=== PATIENT | female | born 1955 | race Caucasian/White ===

== ENCOUNTER → 2017-05-17 13:41 | Outpatient (CLI) | payer BC, SELFPAY ==
[2017-05-22 11:22] LABS: HPV Reflexed? NOT INDICATED
== END ==
PROVIDERS: Visit Provider Obstetrics & Gynecology
DX: Z12.4 Encounter for screening for malignant neoplasm of cervix (principal)
CPT/HCPCS: 88175; G0145

== ENCOUNTER → 2017-06-13 07:51 | Outpatient (CLI) | payer BC, SELFPAY ==
--- NOTE | 2017-06-13 08:11 | US_ITS ---
STUDY: ULTRASOUND BREAST - RIGHT REASON FOR EXAM: Female, 62 years old. Lateral mastectomy and breast implants. TECHNIQUE: Axial and longitudinal images of the RIGHT breast were performed with a high resolution ultrasound transducer. COMPARISON: None. FINDINGS: RIGHT Breast: Sonographic examination of the right breast was obtained. There is evidence of bilateral breast implants. No sonographic abnormality is seen. IMPRESSION: No sonographic abnormality is seen. ASSESSMENT CATEGORY: BIRADS Category 2: Benign. A letter regarding these results will be sent to the patient by the facility within 30 days. Electronically Signed: Dav Kent MD at 9:51 EDT Tel [phone], Service support , STUDY: ULTRASOUND BREAST - LEFT REASON FOR EXAM: Female, 62 years old. Bilateral mastectomy and breast implants. TECHNIQUE: Axial and longitudinal images of the LEFT breast were performed with a high resolution ultrasound transducer. COMPARISON: None. FINDINGS: LEFT Breast: Sonographic examination of the entire left breast was performed. The breast implant is seen. No abnormality is seen. US/Breast Complete Bilateral IMPRESSION: Unremarkable sonographic examination of the left breast. ASSESSMENT CATEGORY: BIRADS Category 2: Benign. A letter regarding these results will be sent to the patient by the facility within 30 days. Electronically Signed: Dav Kent MD at 9:52 EDT Tel [phone], Service support ,
== END ==
PROVIDERS: Family Provider Nurse Practitioner; PCP Nurse Practitioner; Visit Provider Obstetrics & Gynecology
DX: Z12.39 Encounter for other screening for malignant neoplasm of breast (principal); Z90.13 Acquired absence of bilateral breasts and nipples
CPT/HCPCS: 76641

== ENCOUNTER 2018-08-13 19:19 | Inpatient (IN) | payer BC, SELFPAY ==
[2018-08-13] VITALS (7 sets, daily range): BP systolic 149–183; BP diastolic 93–104; PULSE 66–104; RESP 16–20; TEMP 36.5–36.9; O2SAT 92–98; BMI 22.6; BMI 22.9
--- NOTE | 2018-08-13 | IMM_PTH ---
PATIENT: CAPRI HERNANDEZ LOC: MS3 U#:[id number] AGE/SX: 63/F ROOM: [facility]306 RE08/16/[address]: Dr. Vicky Melvin MD : 1955 BED: 1 DIS: 08/17/2018 SPEC #: [id number] RECD: 08/16/18 13:46 STATUS: TERESA REQ #: [id number] KINSEY: 08/13/18 00:[address]: Vicky Melvin DEPT: IMMUNOHISTOCHEMISTRY RECD BY: Khadijah Mccloud ENTERED: 08/16/18 13:48 SP TYPE: IMMUNO OTHR DR: MD Stephanie Swenson, RECOOPERER-C Tissues: A - Cecum, NOS Procedures: MSH2 (add) MLH-1 (add) MSH6 (add) Anti-PMS2 (add) FERREIRA-2 (add) P53 (add) KI-67 (initial) PHYSICIAN & [address] [address] SPECIMEN INFORMATION: Tissue Source: A - Cecal mass biopsy Clinical Info: Cecal mass Specimen Number: [id number] CPT code: 72999, 37858 x6 METHODOLOGY: Deparaffinized sections of prefer/formalin-fixed tissue or PAP/DQ stained slides are incubated with monoclonal/polyclonal antibodies/oligonucleotide probes. Localization is made via biotin free immunoperoxidase method. Appropriate controls are performed and reacted as expected. Results on target cell population are indicated in the following table: RESULTS: ANTIBODY / CLONE RESULT Block A Ki-67 (30-9) positive, high P53 (DO-7) positive, weak FERREIRA-2 (SP21) positive MLH-1 (M1) positive, weak MSH2 (25D12) positive MSH6 (44) positive PMS2 (COP5469) negative (high background staining) These tests were developed and their performance characteristics determined by [facility]. They may not have been cleared or approved by the U.S. Food and Drug Administration. The FDA has determined that such clearance or approval is not necessary. INTERPRETATION: A. Cecal mass, biopsy: Invasive adenocarcinoma. Result of Microsatellite Instability Study: Positive (loss of mismatch protein; microsatellite instability detected). Complete loss of PMS2. Case has been reviewed in consultation with Dr. Ann who concurs with the above diagnosis. IDC:CAR SJ:ashley 08/20/18
--- NOTE | 2018-08-13 19:30 | ED.RN ---
PER REQUEST OF DR ARAGON, CALLED RADIOLOGY TO SEE IF THE CT FROM AN EARLIER VISIS TO THIS HOSPITAL COULD BE READ A PART OF THIS ER VISIT
[2018-08-13 20:01] LABS: Absolute Lymphocyte Count 2.77 X10^3/ul (0.83-4.51); Absolute Neutrophil Count 6.1 X10^3/uL (2.0-7.7); Basophil# 0.03 X10^3/uL; Basophil% 0.3 % (0-1); Eosinophil# 0.24 X10^3/uL; Eosinophils% 2.4 % (0-5); Hematocrit 39.7 % (37-47); Hemoglobin 13.1 g/dl (12.0-15.0); Lymphocyte # 2.77 X10^3/ul (4.0); Mean Corpuscular Hgb 28.9 pg (27.0-32.0); Mean Corpuscular Volume 87.6 fL (81-99); Mean Platelet Vol. 10.3 fl (6.2-12.0); Monocyte# 0.72 X10^3/uL; Monocyte% 7.3 % (0-10); Neutrophil % 61.8 % (47-70); Platelet Count 238 K/mm3 (150-450); RBC Distribution Width CV 13.6 % (11.6-14.6); RBC Distribution Width SD 43.4 fl (35.1-43.9); Red Blood Count 4.53 M/mm3 (4.2-5.4); White Blood Count 9.9 K/mm3 (4.4-11.0)
[2018-08-13 20:03] LABS: POSITIVE COUNT NO; POSITIVE DIFFERENTIAL NO; POSITIVE MORPHOLOGY NO
[2018-08-13 20:04] LABS: Bacteria 0 SEEN /hpf (None Seen); Mucous, Urine 0 SEEN /hpf (<or=2+)
[2018-08-13 20:08] LABS: Color, Urine Yellow (Yellow); Glucose, Dipstick Normal (Normal); Ketone-Dipstick Negative (Negative); Leukocyte Esterase-Dipstick Negative /ul (Negative); Nitrite-Dipstick Negative (Negative); Occult Blood-Urine 25 /ul (Negative); Protein-Dipstick Negative (Negative); Urine Bilirubin Dipstick Negative (Negative); Urine Clarity Clear (Clear); Urine Urobilinogen Normal (Normal); Urine pH 6.5 (5.0 - 8.0)
[2018-08-13 20:13] LABS: Squamous Epithelial Cells - UA 0-5 SEEN /hpf (5-10)
[2018-08-13 20:14] LABS: Red Blood Cells-Urine 0-5 SEEN /hpf (0-5)
[2018-08-13 20:16] LABS: Anion Gap 7 (5-15); BUN 14 mg/dL (7-18); BUN/Creat Ratio 22.7 RATIO (10-20); Calcium,Total 8.7 mg/dL (8.5-10.1); Chloride 104 mmol/L (98-107); Creatinine, Serum 0.62 mg/dL (0.55-1.02); EST Glomerular Filtration Rate 104 mL/min (>60); Est Glom Filt Rate - Afr Amer 126 mL/min (>60); Estimated Creatinine Clearance 81.24 ml/min; Glucose 88 mg/dL (74-106); Potassium 3.7 mmol/L (3.5-5.1); Sodium Level 138 mmol/L (136-145)
[2018-08-13 20:16] LABS: White Blood Cells 0-5 SEEN /hpf (0-5)
--- NOTE | 2018-08-13 20:47 | PCM.HP.STD ---
History of Present Illness Date of Admission: 08/13/18 The patient is a 63 year old F presented to the ER with right lower quadrant pain after having a CT abdomen pelvis done as an outpatient per PCP which was consistent with acute appendicitis with some additional inflammation of the the cecum at the base of the appendix. Patient states the right lower quadrant pain began Monday about 2 AM woke her up from sleep. Patient states that during the day Monday her pain could be a 10/10. She has not really been able to eat. Currently she states her pain is a 0 if she does not move; however certain movements can cause it to be between a 4?8/10. Patient does have nausea and vomiting. Patient's last bowel movement was this morning. Patient's white blood cell count is within normal limits. Patient has never had a colonoscopy. Past Medical History Allergies No Known Allergies Allergy (Verified 08/13/18 19:19) Home Medications: Ambulatory Orders Medication Instructions Recorded Alprazolam [Xanax] 0.25 mg PO BID PRN 08/13/18 Aspirin [Aspirin, Baby] 81 mg PO DAILY@0800 08/13/18 Lorazepam [Ativan] 0.5 mg PO DAILY PRN 08/13/18 Sertraline HCl [Zoloft] 25 mg PO DAILY 08/13/18 Surgical History: - - C-sections, tubal, bilateral mastectomy, right elbow surgery Psychiatric History: No pertinent psych hx DIRECTOR REGULATORY COMPLIANCE History: No pertinent DIRECTOR REGULATORY COMPLIANCE history Lives: Spouse/ Significant Other Smoking Status: Current every day smoker Tobacco Use: Cigarettes - *Family History Maternal History Items: No pertinent history Review of Systems Constitutional: Reports: Anorexia. Denies: Fever Cardiovascular: Denies: Chest Pain Respiratory: Denies: Cough Gastrointestinal: Reports: Abdominal Pain, Nausea, Vomiting. Denies: Constipation VTE Information - Inpt Only VTE Present on Admission: Yes VTE Mechan Device Prophylaxis: SCD's VTE Pharm Prophylaxis ordered?: No Reason prophylaxis not ordered:: Medical Contraindication - Surgery - Physical Exam General: Alert, Oriented x3, Cooperative, No apparent distress HEENT: Atraumatic Lungs: Normal air movement Cardiovascular: Regular rate Abdomen: Soft, Non-Distended, Tender - Right lower quadrant, equivocal rebound, no guarding Extremities: No clubbing, No cyanosis, No edema Neurological: Cranial nerves II-XII grossly intact Psych/Mental Status: Normal Affect Vital Signs Temp Pulse Resp BP Pulse Ox 98 F 77 16 183/104 H 98 08/13/18 19:58 08/13/18 19:58 08/13/18 19:58 08/13/18 19:58 08/13/18 19:58 Oxygen Delivery Method Room Air Weight: 133 lb 9.602 oz Body Mass Index (BMI) 22.9 Laboratory Tests Past 24 Hrs 08/13/18 08/13/18 08/13/18 19:40 19:40 20:00 WBC 9.9 RBC 4.53 Hgb 13.1 Hct 39.7 MCV 87.6 MCH 28.9 MCHC 33.0 RDW 13.6 RDW Differential 43.4 Plt Count 238 MPV 10.3 Immature Gran % (Auto) 0.200 Neut % (Auto) 61.8 Lymph % (Auto) 28.0 [place] % (Auto) 7.3 Eos % (Auto) 2.4 Baso % (Auto) 0.3 Absolute Neuts (auto) 6.1 Absolute Lymphs (auto) 2.77 Total Counted Not Reportable Sodium 138 Potassium 3.7 Chloride 104 Carbon Dioxide 27.0 Anion Gap 7 BUN 14 Creatinine 0.62 Estim Creat Clear Calc 81.24 Est GFR (MDRD) Af Amer 126 Est GFR (MDRD) Non-Af 104 BUN/Creatinine Ratio 22.7 H Glucose 88 Calcium 8.7 Urine Color Yellow Urine Clarity Clear Urine pH 6.5 Ur Specific [place] 1.010 Urine Protein Negative Urine Glucose (UA) Normal Urine Ketones Negative Urine Occult Blood 25 H Urine Nitrite Negative Urine Bilirubin Negative Urine Urobilinogen Normal Ur Leukocyte Esterase Negative Urine RBC 0-5 SEEN Urine WBC 0-5 SEEN Ur Squamous Epith Cells 0-5 SEEN Urine Bacteria 0 SEEN Urine Mucus 0 SEEN Assessment/Plan 63-year-old female with acute appendicitis 1. Discussed procedure laparoscopic appendectomy, possible open, possible bowel resection along with the risk but not limited to bleeding, infection/abscess, injury to another organ (small bowel, colon, etc.), adhesion, hernia at incision sites, and anesthesia. Discussed with patient that CT shows there may be some inflammation at the base of the appendix on the cecum. Discussed with patient may need to take additional cecum to have viable tissue at the staple line. Patient had no further questions this time. Discussed with patient that on follow-up in several weeks after appendectomy, I would recommend patient getting colonoscopy since she is never had one. Vicky Melvin M.D. Pager: [phone] [facility] [address] [place] [address], [address] [place] [id number] Office: [phone]
--- NOTE | 2018-08-13 20:52 | HP.PCM_ITS ---
History of Present Illness Date of Admission: 08/13/18 The patient is a 63 year old F presented to the ER with right lower quadrant pain after having a CT abdomen pelvis done as an outpatient per PCP which was consistent with acute appendicitis with some additional inflammation of the the cecum at the base of the appendix. Patient states the right lower quadrant pain began Monday about 2 AM woke her up from sleep. Patient states that during the day Monday her pain could be a 10/10. She has not really been able to eat. Currently she states her pain is a 0 if she does not move; however certain movements can cause it to be between a 4?8/10. Patient does have nausea and vomiting. Patient's last bowel movement was this morning. Patient's white blood cell count is within normal limits. Patient has never had a colonoscopy. Past Medical History Allergies No Known Allergies Allergy (Verified 08/13/18 19:19) Home Medications: Ambulatory Orders Medication Instructions Recorded Alprazolam [Xanax] 0.25 mg PO BID PRN 08/13/18 Aspirin [Aspirin, Baby] 81 mg PO DAILY@0800 08/13/18 Lorazepam [Ativan] 0.5 mg PO DAILY PRN 08/13/18 Sertraline HCl [Zoloft] 25 mg PO DAILY 08/13/18 Surgical History: - - C-sections, tubal, bilateral mastectomy, right elbow surgery Psychiatric History: No pertinent psych hx GYM ATTENDANT History: No pertinent GYM ATTENDANT history Lives: Spouse/ Significant Other Smoking Status: Current every day smoker Tobacco Use: Cigarettes - *Family History Maternal History Items: No pertinent history Review of Systems Constitutional: Reports: Anorexia. Denies: Fever Cardiovascular: Denies: Chest Pain Respiratory: Denies: Cough Gastrointestinal: Reports: Abdominal Pain, Nausea, Vomiting. Denies: Constipation VTE Information - Inpt Only VTE Present on Admission: Yes VTE Mechan Device Prophylaxis: SCD's VTE Pharm Prophylaxis ordered?: No Reason prophylaxis not ordered:: Medical Contraindication - Surgery - Physical Exam General: Alert, Oriented x3, Cooperative, No apparent distress HEENT: Atraumatic Lungs: Normal air movement Cardiovascular: Regular rate Abdomen: Soft, Non-Distended, Tender - Right lower quadrant, equivocal rebound, no guarding Extremities: No clubbing, No cyanosis, No edema Neurological: Cranial nerves II-XII grossly intact Psych/Mental Status: Normal Affect Vital Signs Temp Pulse Resp BP Pulse Ox 98 F 77 16 183/104 H 98 08/13/18 19:58 08/13/18 19:58 08/13/18 19:58 08/13/18 19:58 08/13/18 19:58 Oxygen Delivery Method Room Air Weight: 133 lb 9.602 oz Body Mass Index (BMI) 22.9 Laboratory Tests Past 24 Hrs 08/13/18 08/13/18 08/13/18 19:40 19:40 20:00 WBC 9.9 RBC 4.53 Hgb 13.1 Hct 39.7 MCV 87.6 MCH 28.9 MCHC 33.0 RDW 13.6 RDW Differential 43.4 Plt Count 238 MPV 10.3 Immature Gran % (Auto) 0.200 Neut % (Auto) 61.8 Lymph % (Auto) 28.0 [place] % (Auto) 7.3 Eos % (Auto) 2.4 Baso % (Auto) 0.3 Absolute Neuts (auto) 6.1 Absolute Lymphs (auto) 2.77 Total Counted Not Reportable Sodium 138 Potassium 3.7 Chloride 104 Carbon Dioxide 27.0 Anion Gap 7 BUN 14 Creatinine 0.62 Estim Creat Clear Calc 81.24 Est GFR (MDRD) Af Amer 126 Est GFR (MDRD) Non-Af 104 BUN/Creatinine Ratio 22.7 H Glucose 88 Calcium 8.7 Urine Color Yellow Urine Clarity Clear Urine pH 6.5 Ur Specific [place] 1.010 Urine Protein Negative Urine Glucose (UA) Normal Urine Ketones Negative Urine Occult Blood 25 H Urine Nitrite Negative Urine Bilirubin Negative Urine Urobilinogen Normal Ur Leukocyte Esterase Negative Urine RBC 0-5 SEEN Urine WBC 0-5 SEEN Ur Squamous Epith Cells 0-5 SEEN Urine Bacteria 0 SEEN Urine Mucus 0 SEEN Assessment/Plan 63-year-old female with acute appendicitis 1. Discussed procedure laparoscopic appendectomy, possible open, possible bowel resection along with the risk but not limited to bleeding, infection/abscess, injury to another organ (small bowel, colon, etc.), adhesion, hernia at incision sites, and anesthesia. Discussed with patient that CT shows there may be some inflammation at the base of the appendix on the cecum. Discussed with patient may need to take additional cecum to have viable tissue at the staple line. Patient had no further questions this time. Discussed with patient that on follow-up in several weeks after appendectomy, I would recommend patient getting colonoscopy since she is never had one. Vicky Melvin M.D. Pager: [phone] [facility] [address] [place] [address], [address] [place] [id number] Office: [phone]
--- NOTE | 2018-08-13 20:59 | ED.VIS.GI ---
History of Present Illness Chief Complaint: Abd Pain Narrative: Patient presenting for evaluation secondary to abdominal pain and a potential positive CT scan. Patient reports that since Monday she has had right lower quadrant abdominal pain. This is a continuous sharp pain that does not radiate. Is been associated with some anorexia, but no significant vomiting or diarrhea. Patient denies any presence of fevers. She is never had any prior similar episodes in the past. Pain is worse with riding in the car or palpation. Patient's are primary care today, they were CT scan, and CT recommended that she come to the emergency department. Past Medical History - Allergies and Home Meds Allergies/Adverse Reactions: Allergies No Known Allergies Allergy (Verified 08/13/18 19:19) Primary Care Physician: Stephanie Liu NP-C [Primary Care Provider] - Surgical History: - - C-sections, tubal, bilateral mastectomy, right elbow surgery Lives: Spouse/ Significant Other Smoking Status: Current every day smoker - Family History Maternal Family History: Reports: No pertinent history Review of Systems All systems negative except as indicated General: Reports: Malaise Gastrointestinal: Reports: Abdominal pain, Nausea. Denies: Vomiting Physical Exam Vital Signs/Narrative: Vital Signs Temp Pulse Resp BP Pulse Ox 08/13/18 19:58 98 F 77 16 183/104 H 98 08/13/18 19:19 98.4 F 75 17 165/104 H 97 Inital Vital Signs reviewed: Yes General: Well nourished, Well developed, No Acute Distress Head: Normocephalic, Atraumatic ENT: Moist mucous membranes, No rhinorrhea Neck: Supple, Nontender Cardiovascular: Regular rate, Regular rhythm, No murmurs Respiratory: No distress, CTA bilaterally, Chest nontender Abdomen: Tender - Right lower quadrant over McBurney's point, Guarding Back: Nontender, Normal Inspection Extremities: Nontender, No edema Skin: Normal color, No rash Neurological: Alert, Oriented x3, Cranial nerves II-XII grossly intact, Normal Strength, Normal Sensation Psychological: Normal affect, Normal Mood Diagnostic/Tx/Re-eval - Medical Decision Making Patient presented secondary to right lower quadrant pain. Her CT scan that was performed as an outpatient showed acute appendicitis. IV was established patient was made n.p.o. and I contacted Dr. Melvin general surgery. Patient will be taken to the operating room for definitive management. Disposition: Admit to Med Surg ED Disposition - Plan for ED Patient: Disposition: [facility] Care [facility] Diagnosis: Acute appendicitis Prescriptions: Hydrocodone Bitart/Apap 5-325 [[place] 5MG-325MG] 1 - 2 tablet PO Q6H PRN PRN 4 Days #20 tablet PRN Reason: Pain Referrals: Stephanie Liu, EVENT CREW TECHNICIAN-C [Primary Care Provider] -
--- NOTE | 2018-08-13 21:00 | COLBX_PTH ---
PATIENT: CAPRI HERNANDEZ LOC: MS3 U#:[id number] AGE/SX: 63/F ROOM: [facility] RE08/16/[address]: Dr. Vicky Melvin MD : 1955 BED: 1 DIS: 08/17/2018 SPEC #: [id number] RECD: 08/15/18 12:29 STATUS: TERESA PHILLIP #: [id number] KINSEY: 08/13/18 21:[address]: Vicky Melvin DEPT: SURGICAL PATHOLOGY RECD BY: Sybil Martinez ENTERED: 08/15/18 13:27 SP TYPE: COLON BX OTHR DR: MD Stephanie Swenson, CERTIFIED ALCOHOL COUNSELOR-C Tissues: A - Cecum, NOS B - Rectum, NOS Procedures: Surgery Specimen Level IV HEADER OPERATION: Diagnostic laparoscopy PRE-OP DIAGNOSIS: Appendicitis, cecal mass TISSUE SUBMITTED: A - Cecal mass biopsy, B - Biopsy rectal polyp MICROSCOPIC DIAGNOSIS A. 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 See comment. B. Rectal polyp, biopsy: Fragments of colonic mucosa, no pathologic diagnosis. Fragments of fecal material. SJ:ashley 08/16/18 COMMENT A. The results of mismatch repair of protein by immunohistochemistry ([id number]) will be reported separately. This case has been reviewed in consultation with Dr. Ann who concurs with the above diagnosis. MICROSCOPIC DESCRIPTION Slides are reviewed. GROSS DESCRIPTION A - Received in fixative is one container labeled with the patient's name and designated cecal mass biopsy. The specimen consists of multiple irregular fragments of light ly soft tissue that in aggregate measure 1.5 x 0.5 x 0.1 cm. The specimen is totally submitted in one cassette. B - Received in fixative is one container labeled with the patient's name and designated biopsy of rectal polyp. The specimen consists of multiple irregular fragments of light ly soft tissue that in aggregate measure 0.7 x 0.2 x 0.1 cm. The specimen is totally submitted in one cassette. / EDUARDO:ashley 08/15/18 TC:0 CPT: 48312 x2
--- NOTE | 2018-08-13 21:03 | ED.DCSUM_ITS ---
History of Present Illness Chief Complaint: Abd Pain Narrative: Patient presenting for evaluation secondary to abdominal pain and a potential positive CT scan. Patient reports that since Monday she has had right lower quadrant abdominal pain. This is a continuous sharp pain that does not radiate. Is been associated with some anorexia, but no significant vomiting or diarrhea. Patient denies any presence of fevers. She is never had any prior similar episodes in the past. Pain is worse with riding in the car or palpation. Patient's are primary care today, they were CT scan, and CT recommended that she come to the emergency department. Past Medical History - Allergies and Home Meds Allergies/Adverse Reactions: Allergies No Known Allergies Allergy (Verified 08/13/18 19:19) Primary Care Physician: Stephanie Liu NP-C [Primary Care Provider] - Surgical History: - - C-sections, tubal, bilateral mastectomy, right elbow surgery Lives: Spouse/ Significant Other Smoking Status: Current every day smoker - Family History Maternal Family History: Reports: No pertinent history Review of Systems All systems negative except as indicated General: Reports: Malaise Gastrointestinal: Reports: Abdominal pain, Nausea. Denies: Vomiting Physical Exam Vital Signs/Narrative: Vital Signs Temp Pulse Resp BP Pulse Ox 08/13/18 19:58 98 F 77 16 183/104 H 98 08/13/18 19:19 98.4 F 75 17 165/104 H 97 Inital Vital Signs reviewed: Yes General: Well nourished, Well developed, No Acute Distress Head: Normocephalic, Atraumatic ENT: Moist mucous membranes, No rhinorrhea Neck: Supple, Nontender Cardiovascular: Regular rate, Regular rhythm, No murmurs Respiratory: No distress, CTA bilaterally, Chest nontender Abdomen: Tender - Right lower quadrant over McBurney's point, Guarding Back: Nontender, Normal Inspection Extremities: Nontender, No edema Skin: Normal color, No rash Neurological: Alert, Oriented x3, Cranial nerves II-XII grossly intact, Normal Strength, Normal Sensation Psychological: Normal affect, Normal Mood Diagnostic/Tx/Re-eval - Medical Decision Making Patient presented secondary to right lower quadrant pain. Her CT scan that was performed as an outpatient showed acute appendicitis. IV was established patient was made n.p.o. and I contacted Dr. Melvin general surgery. Patient will be taken to the operating room for definitive management. Disposition: Admit to Med Surg ED Disposition - Plan for ED Patient: Disposition: Acute Care Hospital [facility] Diagnosis: Acute appendicitis Prescriptions: Hydrocodone Bitart/Apap 5-325 [[place] 5MG-325MG] 1 - 2 tablet PO Q6H PRN PRN 4 Days #20 tablet PRN Reason: Pain Referrals: Stephanie Liu, MIX CHEMIST-C [Primary Care Provider] -
--- NOTE | 2018-08-13 21:14 | ED.RN ---
gave report over phone to PLATE EMBOSSER
[2018-08-13] MEDS: Bupiv/Epi 0.5% Mpf 30 ML Vial (22:10)
--- NOTE | 2018-08-13 22:15 | PCM.OPRPT ---
Report of Operation Date of Procedure: 08/13/18 Pre-Operative Diagnosis: Acute appendicitis, inflammation at the base of the appendix Post-Operative Diagnosis: Cecal inflammation/mass Surgery/Procedure Performed:: Diagnostic laparoscopy Type of Anesthesia:: General/Supplemental Anesthesiologist: Andriy Ruiz Special Medications: Zosyn 3.375 g IV x1 Specimen's removed: None Estimated Blood Loss (mL): < 10 cc Fluids Replaced: 500 cc Description of Procedure: Indications: 63-year-old female presented to the ER with new right lower quadrant pain since Monday a.m. On workup she was found to have acute appendicitis with some inflammation at the base of the appendix on the cecum on CT and normal white blood cell count. Patient was started on antibiotics in the ER for acute appendicitis-Zosyn 3.375 g IV x1 Description of the procedure: The patient was placed on operating table in supine position. General anesthesia was induced. A timeout was completed verifying correct patient, procedure, position and special equipment prior to beginning procedure. A Elliott catheter was placed. Abdomen was prepped and draped in usual sterile fashion. Incision was made in the natural skin line above the umbilicus with a 15 blade scalpel. The fascia was elevated and incised. Entry into the peritoneum was confirmed visually and no bowel was noted in the vicinity of the incision. The Alvarez trocar was placed under direct vision. Abdomen insufflated with a pressure of 12-15 mmHg. Patient tolerated insertion well. The scope was inserted and the abdomen inspected. No injuries from initial trocar placement were noted. Minimal amount of fluid was seen in the right lower quadrant. An direct visualization 2 -5 mm trocars were placed one above the symphysis pubis and below the hairline and one in the left lower quadrant lateral to the rectus muscle. Care is taken to avoid injury to the bladder and inferior epigastric vessels. The table was placed in Trendelenburg position with the right side elevated. The base of the cecum appeared inflamed and there was about a 2 cm hard mass. The appendix appeared normal however the inflammation was at the base of the appendix unable to use a stapler to divide the appendix. Did discuss the case via phone with Dr. Farooq, who also agreed to abort the appendectomy and plan for additional work-up of cecal mass. Secondary trochars were removed under direct visualization. No bleeding was noted trocar sites. The laparoscope withdrawn and the umbilical trocar removed. The abdomen was allowed to collapse. Local anesthesia of 13 mL of 0.5% Marcaine was used at the incision sites. The umbilical trocar site was closed with the [id number] 0 Vicryl suture. The skin was closed up to clear sutures of 4-0 Monocryl and Steri-Strips. The patient was extubated. The patient tolerated the procedure well and was taken to the postanesthesia care unit in satisfactory condition. - Complications none
[2018-08-13] MEDS: Ketorolac 15 MG/ML Vial IV (22:44)
--- NOTE | 2018-08-13 22:49 | PCM.PN.BLA ---
Progress Note Pt appendix appeared normal with inflammation/mass at cecum near base of the appendix. Pt has never had a colonoscopy and is not obstructed. Appendix was not removed- only diagnostic laparoscopy complete. Will plan for additional w/u including colonoscopy will discuss further with patient and her family in AM. Have discussed finding of surgery and needing further work up.
[2018-08-13] MEDS: Lactated Ringers 1,000 ML 125 ML IV (23:08)
[2018-08-14] MEDS: ALPRAZolam 0.25 MG Tablet PO (00:17)
[2018-08-14 01:25] VITALS: BP 125/82; PULSE 75; RESP 16; TEMP 36.8; O2SAT 97; BMI 22.6
[2018-08-14 03:39] VITALS: BP 124/82; PULSE 76; RESP 16; TEMP 36.6; O2SAT 97; BMI 22.6
[2018-08-14] MEDS: Lactated Ringers 1,000 ML 125 ML IV (05:41)
[2018-08-14 05:43] LABS: Absolute Lymphocyte Count 1.02 X10^3/ul (0.83-4.51); Absolute Neutrophil Count 6.9 X10^3/uL (2.0-7.7); Basophil# 0.02 X10^3/uL; Basophil% 0.2 % (0-1); Eosinophil# 0.01 X10^3/uL; Eosinophils% 0.1 % (0-5); Hematocrit 38.9 % (37-47); Hemoglobin 12.8 g/dl (12.0-15.0); Lymphocyte # 1.02 X10^3/ul (4.0); Lymphocyte % 12.7 % (19-41); Mean Corp Hgb Conc 32.9 g/gl (32-36); Mean Corpuscular Hgb 28.8 pg (27.0-32.0); Mean Corpuscular Volume 87.4 fL (81-99); Mean Platelet Vol. 10.6 fl (6.2-12.0); Monocyte# 0.07 X10^3/uL; Monocyte% 0.9 % (0-10); Neutrophil # 6.88 X10^3/uL (2.7-7.7); Platelet Count 228 K/mm3 (150-450); RBC Distribution Width CV 13.5 % (11.6-14.6); RBC Distribution Width SD 42.4 fl (35.1-43.9); Red Blood Count 4.45 M/mm3 (4.2-5.4)
[2018-08-14 05:44] LABS: POSITIVE COUNT NO; POSITIVE DIFFERENTIAL NO; POSITIVE MORPHOLOGY NO
--- NOTE | 2018-08-14 07:05 | PN.SURG_ITS ---
Patient Problems: Active and Suspected Problems Acute appendicitis (Acute) Subjective: Patient states her abdomen is less sore than yesterday at the right lower quadrant. Patient tolerated clears. We will plan for a bowel prep today for colonoscopy tomorrow. Patient is agreeable to plan. Did asked patient about her alcohol intake she states that she drinks maybe a 6 to 12 pack a week, 2-4 mixed drinks daily mostly on the weekends, wine nightly. Patient states she is never had any issues with withdrawal and does not feel need to have a consult to the hospitalist. - Physical Exam General: Alert, Oriented x3, Cooperative, No apparent distress HEENT: Atraumatic Lungs: Normal air movement Cardiovascular: Regular rate Abdomen: Soft, Distended - Mild, Tender - Near incisions, no right lower quadrant tenderness on exam, no peritoneal signs Extremities: No clubbing, No cyanosis, No edema Neurological: Cranial nerves II-XII grossly intact Psych/Mental Status: Normal Affect Vital Signs Temp Pulse Resp BP Pulse Ox 97.9 F 76 16 124/82 H 97 08/14/18 03:39 08/14/18 03:39 08/14/18 03:39 08/14/18 03:39 08/14/18 03:39 Oxygen Delivery Method Room Air Weight: 131 lb 13.383 oz Body Mass Index (BMI) 22.6 Intake and Output for Last 24 Hours 08/12/18 08/13/18 08/14/18 23:59 23:59 23:59 Intake Total 1000 / 1000 1290 / 1290 Output Total 220 / 220 Balance 780 / 780 1290 / 1290 Laboratory Tests Past 24 Hrs 08/13/18 08/13/18 08/13/18 19:40 19:40 20:00 WBC 9.9 RBC 4.53 Hgb 13.1 Hct 39.7 MCV 87.6 MCH 28.9 MCHC 33.0 RDW 13.6 RDW Differential 43.4 Plt Count 238 MPV 10.3 Immature Gran % (Auto) 0.200 Neut % (Auto) 61.8 Lymph % (Auto) 28.0 [place] % (Auto) 7.3 Eos % (Auto) 2.4 Baso % (Auto) 0.3 Absolute Neuts (auto) 6.1 Absolute Lymphs (auto) 2.77 Total Counted Not Reportable Sodium 138 Potassium 3.7 Chloride 104 Carbon Dioxide 27.0 Anion Gap 7 BUN 14 Creatinine 0.62 Estim Creat Clear Calc 81.24 Est GFR (MDRD) Af Amer 126 Est GFR (MDRD) Non-Af 104 BUN/Creatinine Ratio 22.7 H Glucose 88 Calcium 8.7 Urine Color Yellow Urine Clarity Clear Urine pH 6.5 Ur Specific [place] 1.010 Urine Protein Negative Urine Glucose (UA) Normal Urine Ketones Negative Urine Occult Blood 25 H Urine Nitrite Negative Urine Bilirubin Negative Urine Urobilinogen Normal Ur Leukocyte Esterase Negative Urine RBC 0-5 SEEN Urine WBC 0-5 SEEN Ur Squamous Epith Cells 0-5 SEEN Urine Bacteria 0 SEEN Urine Mucus 0 SEEN 08/14/18 05:14 WBC 8.0 RBC 4.45 Hgb 12.8 Hct 38.9 MCV 87.4 MCH 28.8 MCHC 32.9 RDW 13.5 RDW Differential 42.4 Plt Count 228 MPV 10.6 Immature Gran % (Auto) 0.100 Neut % (Auto) 86.0 H Lymph % (Auto) 12.7 L [place] % (Auto) 0.9 Eos % (Auto) 0.1 Baso % (Auto) 0.2 Absolute Neuts (auto) 6.9 Absolute Lymphs (auto) 1.02 Total Counted Not Reportable Sodium Potassium Chloride Carbon Dioxide Anion Gap BUN Creatinine Estim Creat Clear Calc Est GFR (MDRD) Af Amer Est GFR (MDRD) Non-Af BUN/Creatinine Ratio Glucose Calcium Urine Color Urine Clarity Urine pH Ur Specific [place] Urine Protein Urine Glucose (UA) Urine Ketones Urine Occult Blood Urine Nitrite Urine Bilirubin Urine Urobilinogen Ur Leukocyte Esterase Urine RBC Urine WBC Ur Squamous Epith Cells Urine Bacteria Urine Mucus Medical Necessity - Tobacco Use Smoking Status: Current some day smoker Tobacco Use: Cigarettes Assessment/Plan All Active Problems Acute appendicitis (Acute) 63-year-old female with cecal inflammation/mass 1. I have discussed the above with the patient. I have offered the patient colonoscopy for evaluation. I have explained the risks/benefits of the procedure and described the procedure. I have discussed the risks with the patient, including but not limited to: infection, bleeding, perforation of the GI tract requiring emergency surgery, inability to complete the procedure, injury to any internal organs, complications of anesthesia, etc. - the patient understands and agrees to proceed. I have answered all the patient's questions to the patient's satisfaction and the patient has no further questions. The patient has been given instructions for the colon cleansing preparation. We will do Dulcolax MiraLAX split prep starting at 10 AM today. Patient no further questions this time. Discuss with patient that if she is unable to tolerate prep or her pain gets worse as due to the location of the inflammation/mass she could possibly get acute appendicitis we will plan to go to the OR for a right hemicolectomy at that time. She is able to tolerate the prep we will plan to do the colonoscopy and depending on findings could do definitive surgery on the following day if necessary. 2. Alcohol intake. Discussed with patient that due to her daily alcohol intake she may benefit from a hospitalist consult initially did not place this morning; however due to patient being here for at least 3 to 5 day did think a consult could be beneficial. However I did also received call at midnight last night from the nurse stating that the daughter had some concerns about her drinking as she may have told the nurse that she had some issues with withdrawals previously. Addendum 13:30: Dr. Zarate went to see the patient. Dr. Zarate called me and told me the patient states she did not need to have a hospitalist consult- she will s/o. Vicky Melvin M.D. Pager: [phone] [facility] [address] [place] [address], [address] [place] [id number] Office: [phone]
[2018-08-14 08:37] VITALS: BP 137/71; PULSE 77; RESP 18; TEMP 36.4; O2SAT 96
[2018-08-14] MEDS: Sertraline 50 MG Tablet 25 MG PO (09:59)
[2018-08-14] MEDS: Bisacodyl 5 MG Tablet 20 MG PO (09:59)
[2018-08-14] MEDS: Ensure Clear 120 ML Liquid PO (09:59)
[2018-08-14] MEDS: Ondansetron 4 MG/2 ML Vial IV (11:38)
[2018-08-14] MEDS: Polyethylene Glycol 3350 17 GM PACKET 238 GM PO (12:13)
--- NOTE | 2018-08-14 12:50 | PCM.PN.HOSP ---
Patient Problems: Active and Suspected Problems Acute appendicitis (Acute) Subjective: Patient is a 63-year-old female who was admitted through the ED on 08/13/2018 with a complaint of right lower quadrant pain. CT of the abdomen and pelvis done on an outpatient basis per her PCP was consistent with acute appendicitis with some additional inflammation of the cecum at the base of the appendix. Abdominal pain had started about 2 days prior to admission. She was admitted by general surgery for appendicitis. She was taken for appendicectomy but it was noticed that the base of the cecum was inflamed and there appeared to be a 2 cm hard mass with appendix appearing normal. Decision was made to abort the appendectomy and plan for additional work-up of the cecal mass. Hospitalist service was consulted today as he was brought to surgeon's attention that patient had a history of alcohol dependence and had gone into withdrawal in 2007 when she had surgery for bilateral mastectomy. Hospitalist service needed to help with medical management of possible alcohol withdrawal. Patient seen and examined. She stated that she drinks about 4 mixed drinks some days of the week. When pressed to state how many days of the week she drank, she stated mostly on weekends but during the week she will sometimes have an occasional drink. Patient denied having any problems with alcohol and says she is never been into detox. Patient seen very defensive about her drinking during review and stated she felt insulted that hospitalist service was consulted on account of her alcohol intake as she did not consider herself as having a problem with alcohol. Vitals/I&O's: Vital Signs Temp Pulse Resp BP Pulse Ox 97.5 F L 77 18 137/71 H 96 08/14/18 08:37 08/14/18 08:37 08/14/18 08:37 08/14/18 08:37 08/14/18 08:37 Oxygen Delivery Method Room Air Weight: 131 lb 13.383 oz Body Mass Index (BMI) 22.6 Intake and Output for Last 24 Hours 08/12/18 08/13/18 08/14/18 23:59 23:59 23:59 Intake Total 1000 / 1000 1290 / 1290 Output Total 220 / 220 Balance 780 / 780 1290 / 1290 General: Alert, Oriented x3, Cooperative, No apparent distress HEENT: Atraumatic, PERRLA, EOMI, Normocephalic Oral: Moist Mucosa Neck: Supple, No JVD, Negative Carotid Bruits Lungs: Clear to auscultation, Normal air movement, No rhonchi, No wheeze, No rales Cardiovascular: Regular rate, Regular Rhythm, Normal S1, Normal S2, No murmurs Abdomen: Bowel Sounds Present, Soft, Non Tender, Non-Distended, No Hepato-splenomegaly Extremities: No clubbing, No cyanosis, No edema, Capillary Refill Less than 3 Seconds Skin: No rashes, No breakdown Musculoskeletal: No Tenderness to Palpation of Joints or Extremities Lymphatic: No Cervical, Supraclavicular, or Inguinal Adenopathy Neurological: Cranial nerves II-XII grossly intact, Neuro grossly intact, Motor Exam 5/5 strength throughout Psych/Mental Status: Normal Affect, Appropriate, Alert and oriented to time, place, person, mood and affect Laboratory Results 08/13/18 19:40: WBC 9.9, RBC 4.53, Hgb 13.1, Hct 39.7, MCV 87.6, MCH 28.9, MCHC 33.0, RDW 13.6, RDW Differential 43.4, Plt Count 238, MPV 10.3, Immature Gran % (Auto) 0.200, Neut % (Auto) 61.8, Lymph % (Auto) 28.0, [place] % (Auto) 7.3, Eos % (Auto) 2.4, Baso % (Auto) 0.3, Absolute Neuts (auto) 6.1, Absolute Lymphs (auto) 2.77, Total Counted Not Reportable 08/13/18 19:40: Sodium 138, Potassium 3.7, Chloride 104, Carbon Dioxide 27.0, Anion Gap 7, BUN 14, Creatinine 0.62, Estim Creat Clear Calc 81.24, Est GFR (MDRD) Af Amer 126, Est GFR (MDRD) Non-Af 104, BUN/Creatinine Ratio 22.7 H, Glucose 88, Calcium 8.7 08/13/18 20:00: Urine Color Yellow, Urine Clarity Clear, Urine pH 6.5, Ur Specific [place] 1.010, Urine Protein Negative, Urine Glucose (UA) Normal, Urine Ketones Negative, Urine Occult Blood 25 H, Urine Nitrite Negative, Urine Bilirubin Negative, Urine Urobilinogen Normal, Ur Leukocyte Esterase Negative, Urine RBC 0-5 SEEN, Urine WBC 0-5 SEEN, Ur Squamous Epith Cells 0-5 SEEN, Urine Bacteria 0 SEEN, Urine Mucus 0 SEEN 08/14/18 05:14: WBC 8.0, RBC 4.45, Hgb 12.8, Hct 38.9, MCV 87.4, MCH 28.8, MCHC 32.9, RDW 13.5, RDW Differential 42.4, Plt Count 228, MPV 10.6, Immature Gran % (Auto) 0.100, Neut % (Auto) 86.0 H, Lymph % (Auto) 12.7 L, [place] % (Auto) 0.9, Eos % (Auto) 0.1, Baso % (Auto) 0.2, Absolute Neuts (auto) 6.9, Absolute Lymphs (auto) 1.02, Total Counted Not Reportable Current Medications Morphine Sulfate () 2 mg IV Q4H PRN PRN PRN Reason: SEVERE PAIN (-12/20) Nutritional Formula (Lactose Free) (Ensure Clear) 120 ml PO 4X/DAY [facility] Last Admin: 08/14/18 09:59 Dose: 120 ml Ondansetron HCl (Zofran) 4 mg IV Q6H PRN PRN PRN Reason: NAUSEA Last Admin: 08/14/18 11:38 Dose: 4 mg Polyethylene Glycol (Miralax) 0 gm PO X1 ONE Stop: 08/15/18 06:01 Sertraline HCl (Zoloft) 25 mg PO DAILY [facility] Last Admin: 08/14/18 09:59 Dose: 25 mg Medical Necessity - Tobacco Use Smoking Status: Current some day smoker Tobacco Use: Cigarettes Assessment/Plan All Active Problems Acute appendicitis (Acute) 1. Alcohol dependence patient drinks ~ 4 mixed drinks on weekends, and also says she occasionally has a drink during the week patient very defensive about her drinking, and was upset hospitalist service was consulted for the possibility of withdrawal from alchohol her last drink was ~ 2 days ago, on Monday. check magnesium potassium levels put on alcohol withdrawal protocol with ativan P.o. thiamine, folic acid and Multivite. 2. Cecal mass: Patient admitted with abdominal pain and CAT scan picked up possible appendicitis. However in laparoscopy she was noted to have 2 cm cecal mass. She therefore did not have appendectomy. Further work-up as per general surgery. 3. History of status post bilateral mastectomy: Stable 4. Anxiety: On Xanax twice daily. DVT prophylaxis: As per general surgery Hospitalist service will sign off now as patient does not want to be seen by hospitalist service anymore because she does not think the reason for the consult is warranted as she does not believe she has a problem with alcohol. Thank you for the courtesy of the consult. Please do not hesitate to contact hospitalist if the need arises. Code Visit Inpatient E&M: 96677 Subs Hosp L2
--- NOTE | 2018-08-14 12:53 | PN_ITS ---
Patient Problems: Active and Suspected Problems Acute appendicitis (Acute) Subjective: Patient is a 63-year-old female who was admitted through the ED on 08/13/2018 with a complaint of right lower quadrant pain. CT of the abdomen and pelvis done on an outpatient basis per her PCP was consistent with acute appendicitis with some additional inflammation of the cecum at the base of the appendix. Abdominal pain had started about 2 days prior to admission. She was admitted by general surgery for appendicitis. She was taken for appendicectomy but it was noticed that the base of the cecum was inflamed and there appeared to be a 2 cm hard mass with appendix appearing normal. Decision was made to abort the appendectomy and plan for additional work-up of the cecal mass. Hospitalist service was consulted today as he was brought to surgeon's attention that patient had a history of alcohol dependence and had gone into withdrawal in 2007 when she had surgery for bilateral mastectomy. Hospitalist service needed to help with medical management of possible alcohol withdrawal. Patient seen and examined. She stated that she drinks about 4 mixed drinks some days of the week. When pressed to state how many days of the week she drank, she stated mostly on weekends but during the week she will sometimes have an occasional drink. Patient denied having any problems with alcohol and says she is never been into detox. Patient seen very defensive about her drinking during review and stated she felt insulted that hospitalist service was consulted on account of her alcohol intake as she did not consider herself as having a problem with alcohol. Vitals/I&O's: Vital Signs Temp Pulse Resp BP Pulse Ox 97.5 F L 77 18 137/71 H 96 08/14/18 08:37 08/14/18 08:37 08/14/18 08:37 08/14/18 08:37 08/14/18 08:37 Oxygen Delivery Method Room Air Weight: 131 lb 13.383 oz Body Mass Index (BMI) 22.6 Intake and Output for Last 24 Hours 08/12/18 08/13/18 08/14/18 23:59 23:59 23:59 Intake Total 1000 / 1000 1290 / 1290 Output Total 220 / 220 Balance 780 / 780 1290 / 1290 General: Alert, Oriented x3, Cooperative, No apparent distress HEENT: Atraumatic, PERRLA, EOMI, Normocephalic Oral: Moist Mucosa Neck: Supple, No JVD, Negative Carotid Bruits Lungs: Clear to auscultation, Normal air movement, No rhonchi, No wheeze, No rales Cardiovascular: Regular rate, Regular Rhythm, Normal S1, Normal S2, No murmurs Abdomen: Bowel Sounds Present, Soft, Non Tender, Non-Distended, No Hepato- splenomegaly Extremities: No clubbing, No cyanosis, No edema, Capillary Refill Less than 3 Seconds Skin: No rashes, No breakdown Musculoskeletal: No Tenderness to Palpation of Joints or Extremities Lymphatic: No Cervical, Supraclavicular, or Inguinal Adenopathy Neurological: Cranial nerves II-XII grossly intact, Neuro grossly intact, Motor Exam 5/5 strength throughout Psych/Mental Status: Normal Affect, Appropriate, Alert and oriented to time, place, person, mood and affect Laboratory Results 08/13/18 19:40: WBC 9.9, RBC 4.53, Hgb 13.1, Hct 39.7, MCV 87.6, MCH 28.9, MCHC 33.0, RDW 13.6, RDW Differential 43.4, Plt Count 238, MPV 10.3, Immature Gran % (Auto) 0.200, Neut % (Auto) 61.8, Lymph % (Auto) 28.0, [place] % (Auto) 7.3, Eos % (Auto) 2.4, Baso % (Auto) 0.3, Absolute Neuts (auto) 6.1, Absolute Lymphs (auto) 2.77, Total Counted Not Reportable 08/13/18 19:40: Sodium 138, Potassium 3.7, Chloride 104, Carbon Dioxide 27.0, Anion Gap 7, BUN 14, Creatinine 0.62, Estim Creat Clear Calc 81.24, Est GFR (MDRD) Af Amer 126, Est GFR (MDRD) Non-Af 104, BUN/Creatinine Ratio 22.7 H, Glucose 88, Calcium 8.7 08/13/18 20:00: Urine Color Yellow, Urine Clarity Clear, Urine pH 6.5, Ur Specific [place] 1.010, Urine Protein Negative, Urine Glucose (UA) Normal, Urine Ketones Negative, Urine Occult Blood 25 H, Urine Nitrite Negative, Urine Bilirubin Negative, Urine Urobilinogen Normal, Ur Leukocyte Esterase Negative, Urine RBC 0-5 SEEN, Urine WBC 0-5 SEEN, Ur Squamous Epith Cells 0-5 SEEN, Urine Bacteria 0 SEEN, Urine Mucus 0 SEEN 08/14/18 05:14: WBC 8.0, RBC 4.45, Hgb 12.8, Hct 38.9, MCV 87.4, MCH 28.8, MCHC 32.9, RDW 13.5, RDW Differential 42.4, Plt Count 228, MPV 10.6, Immature Gran % (Auto) 0.100, Neut % (Auto) 86.0 H, Lymph % (Auto) 12.7 L, [place] % (Auto) 0.9, Eos % (Auto) 0.1, Baso % (Auto) 0.2, Absolute Neuts (auto) 6.9, Absolute Lymphs (auto) 1.02, Total Counted Not Reportable Current Medications Morphine Sulfate () 2 mg IV Q4H PRN PRN PRN Reason: SEVERE PAIN (-12/20) Nutritional Formula (Lactose Free) (Ensure Clear) 120 ml PO 4X/DAY [facility] Last Admin: 08/14/18 09:59 Dose: 120 ml Ondansetron HCl (Zofran) 4 mg IV Q6H PRN PRN PRN Reason: NAUSEA Last Admin: 08/14/18 11:38 Dose: 4 mg Polyethylene Glycol (Miralax) 0 gm PO X1 ONE Stop: 08/15/18 06:01 Sertraline HCl (Zoloft) 25 mg PO DAILY [facility] Last Admin: 08/14/18 09:59 Dose: 25 mg Medical Necessity - Tobacco Use Smoking Status: Current some day smoker Tobacco Use: Cigarettes Assessment/Plan All Active Problems Acute appendicitis (Acute) 1. Alcohol dependence * patient drinks ~ 4 mixed drinks on weekends, and also says she occasionally has a drink during the week * patient very defensive about her drinking, and was upset hospitalist service was consulted for the possibility of withdrawal from alchohol * her last drink was ~ 2 days ago, on Monday. * check magnesium potassium levels * put on alcohol withdrawal protocol with ativan * P.o. thiamine, folic acid and Multivite. * 2. Cecal mass: * Patient admitted with abdominal pain and CAT scan picked up possible appendicitis. * However in laparoscopy she was noted to have 2 cm cecal mass. * She therefore did not have appendectomy. * Further work-up as per general surgery. 3. History of status post bilateral mastectomy: Stable 4. Anxiety: On Xanax twice daily. DVT prophylaxis: As per general surgery Hospitalist service will sign off now as patient does not want to be seen by hospitalist service anymore because she does not think the reason for the consult is warranted as she does not believe she has a problem with alcohol. Thank you for the courtesy of the consult. Please do not hesitate to contact hospitalist if the need arises. Code Visit Inpatient E&M: [id number] Subs Hosp L2
[2018-08-14 14:00] VITALS: BP 147/88; PULSE 64; RESP 18; TEMP 36.4; O2SAT 95
--- NOTE | 2018-08-14 14:55 | CHAPLAIN ---
Type of Pastoral Visit _x__ Initial Visit ___ Follow-up Visit ___ On-call Visit ___ General Patient Visit ___ Spiritual Assessment ___ Family Conference ___ Bereavement ___ Rapid Response ___ Code Blue ___ Other (describe below) Pastoral Care Referral From _x__ Patient ___ Family ___ Nurse ___ Physician ___ Otolaryngology Nurse ___ Sock Mender ___ Other (describe below) Sacrament/Intervention _x__ Active listening ___ Anointing ___ Baptist ___ Bereavement ___ Communion _x__ Elida exploration ___ ___ Life review _x__ Prayer ___ Reconciliation ___ Sacrament of Sick _x__ Supportive presence ___ Wedding ___ Other (describe below) Pastoral Comments patient would welcome future spiritual care support particularly after surgery and diagnosis
[2018-08-14] MEDS: Ibuprofen 400 MG Tablet PO ×2 (15:46→22:09)
[2018-08-14] MEDS: Morphine 2 MG/ML Syringe IV (20:21)
[2018-08-14 22:05] VITALS: BP 144/83; PULSE 69; RESP 16; TEMP 36.4; O2SAT 97
[2018-08-15] VITALS (12 sets, daily range): BP systolic 126–146; BP diastolic 73–93; PULSE 57–65; RESP 16–18; TEMP 36.4–36.8; O2SAT 92–96
[2018-08-15] MEDS: Morphine 2 MG/ML Syringe IV (02:31)
[2018-08-15 06:08] LABS: Absolute Lymphocyte Count 2.83 X10^3/ul (0.83-4.51); Absolute Neutrophil Count 4.5 X10^3/uL (2.0-7.7); Basophil# 0.02 X10^3/uL; Basophil% 0.2 % (0-1); Eosinophil# 0.09 X10^3/uL; Eosinophils% 1.1 % (0-5); Hemoglobin 11.6 g/dl (12.0-15.0); Lymphocyte # 2.83 X10^3/ul (4.0); Lymphocyte % 34.6 % (19-41); Mean Corp Hgb Conc 32.2 g/gl (32-36); Mean Corpuscular Hgb 28.6 pg (27.0-32.0); Mean Corpuscular Volume 88.7 fL (81-99); Mean Platelet Vol. 10.7 fl (6.2-12.0); Monocyte# 0.76 X10^3/uL; Monocyte% 9.3 % (0-10); Neutrophil # 4.46 X10^3/uL (2.7-7.7); Neutrophil % 54.6 % (47-70); Platelet Count 205 K/mm3 (150-450); RBC Distribution Width CV 13.5 % (11.6-14.6); RBC Distribution Width SD 43.5 fl (35.1-43.9); Red Blood Count 4.06 M/mm3 (4.2-5.4); White Blood Count 8.2 K/mm3 (4.4-11.0)
[2018-08-15 06:10] LABS: POSITIVE COUNT NO; POSITIVE DIFFERENTIAL NO; POSITIVE MORPHOLOGY NO
[2018-08-15] MEDS: Polyethylene Glycol 3350 17 GM PACKET PO (06:13)
[2018-08-15 06:37] LABS: Anion Gap 9 (5-15); BUN 6 mg/dL (7-18); BUN/Creat Ratio 11.6 RATIO (10-20); Calcium,Total 8.1 mg/dL (8.5-10.1); Chloride 112 mmol/L (98-107); Creatinine, Serum 0.52 mg/dL (0.55-1.02); EST Glomerular Filtration Rate 127 mL/min (>60); Est Glom Filt Rate - Afr Amer 154 mL/min (>60); Estimated Creatinine Clearance 96.86 ml/min; Glucose 96 mg/dL (74-106); Potassium 3.5 mmol/L (3.5-5.1); Sodium Level 146 mmol/L (136-145)
--- NOTE | 2018-08-15 08:47 | PCM.PN.SRG ---
Patient Problems: Active and Suspected Problems Acute appendicitis (Acute) Subjective: Pt tolerated prep, clear this AM per pt - Physical Exam General: Alert, Oriented x3, Cooperative HEENT: Atraumatic Lungs: Normal air movement Abdomen: Soft, Distended - mild, Tender - mild ttp at incisions c/d/i Neurological: Cranial nerves II-XII grossly intact Psych/Mental Status: Normal Affect Vital Signs Temp Pulse Resp BP Pulse Ox 98.0 F 59 L 18 146/93 H 93 08/15/18 08:35 08/15/18 08:35 08/15/18 08:35 08/15/18 08:35 08/15/18 08:35 Oxygen Delivery Method Room Air Weight: 131 lb 13.383 oz Body Mass Index (BMI) 22.6 Intake and Output for Last 24 Hours 08/13/18 08/14/18 08/15/18 23:59 23:59 23:59 Intake Total 1000 / 1000 3890 / 3890 500 / 500 Output Total 220 / 220 Balance 780 / 780 3890 / 3890 500 / 500 Laboratory Tests Past 24 Hrs 08/14/18 08/15/18 08/15/18 16:05 05:22 05:22 WBC 8.2 RBC 4.06 L Hgb 11.6 L Hct 36.0 L MCV 88.7 MCH 28.6 MCHC 32.2 RDW 13.5 RDW Differential 43.5 Plt Count 205 MPV 10.7 Immature Gran % (Auto) 0.200 Neut % (Auto) 54.6 Lymph % (Auto) 34.6 Wirt % (Auto) 9.3 Eos % (Auto) 1.1 Baso % (Auto) 0.2 Absolute Neuts (auto) 4.5 Absolute Lymphs (auto) 2.83 Total Counted Not Reportable Sodium 146 H Potassium 3.5 Chloride 112 H Carbon Dioxide 25.0 Anion Gap 9 BUN 6 L Creatinine 0.52 L Estim Creat Clear Calc 96.86 Est GFR (MDRD) Af Amer 154 Est GFR (MDRD) Non-Af 127 BUN/Creatinine Ratio 11.6 Glucose 96 Calcium 8.1 L Magnesium 2.0 Medical Necessity - Tobacco Use Smoking Status: Current some day smoker Tobacco Use: Cigarettes Assessment/Plan All Active Problems Acute appendicitis (Acute) 63-year-old female with cecal inflammation/mass 1. Colonoscopy today at 11:30 am. Pt had no further questions about colonoscopy. If there was a mass found would plan for laparoscopic right hemicolectomy tomorrow about 12PM, would not wait for bx results as pt is at risk of appendicitis if the base of the appendix is obstructed due to inflammation/mass. Pt is agreeable with plan and all questions currently have been answered. Vicky Melvin M.D. Pager: [phone] [facility] [address] [place] [address], [address] [place] [address] Office: [phone]
--- NOTE | 2018-08-15 08:52 | PN.SURG_ITS ---
Patient Problems: Active and Suspected Problems Acute appendicitis (Acute) Subjective: Pt tolerated prep, clear this AM per pt - Physical Exam General: Alert, Oriented x3, Cooperative HEENT: Atraumatic Lungs: Normal air movement Abdomen: Soft, Distended - mild, Tender - mild ttp at incisions c/d/i Neurological: Cranial nerves II-XII grossly intact Psych/Mental Status: Normal Affect Vital Signs Temp Pulse Resp BP Pulse Ox 98.0 F 59 L 18 146/93 H 93 08/15/18 08:35 08/15/18 08:35 08/15/18 08:35 08/15/18 08:35 08/15/18 08:35 Oxygen Delivery Method Room Air Weight: 131 lb 13.383 oz Body Mass Index (BMI) 22.6 Intake and Output for Last 24 Hours 08/13/18 08/14/18 08/15/18 23:59 23:59 23:59 Intake Total 1000 / 1000 3890 / 3890 500 / 500 Output Total 220 / 220 Balance 780 / 780 3890 / 3890 500 / 500 Laboratory Tests Past 24 Hrs 08/14/18 08/15/18 08/15/18 16:05 05:22 05:22 WBC 8.2 RBC 4.06 L Hgb 11.6 L Hct 36.0 L MCV 88.7 MCH 28.6 MCHC 32.2 RDW 13.5 RDW Differential 43.5 Plt Count 205 MPV 10.7 Immature Gran % (Auto) 0.200 Neut % (Auto) 54.6 Lymph % (Auto) 34.6 [place] % (Auto) 9.3 Eos % (Auto) 1.1 Baso % (Auto) 0.2 Absolute Neuts (auto) 4.5 Absolute Lymphs (auto) 2.83 Total Counted Not Reportable Sodium 146 H Potassium 3.5 Chloride 112 H Carbon Dioxide 25.0 Anion Gap 9 BUN 6 L Creatinine 0.52 L Estim Creat Clear Calc 96.86 Est GFR (MDRD) Af Amer 154 Est GFR (MDRD) Non-Af 127 BUN/Creatinine Ratio 11.6 Glucose 96 Calcium 8.1 L Magnesium 2.0 Medical Necessity - Tobacco Use Smoking Status: Current some day smoker Tobacco Use: Cigarettes Assessment/Plan All Active Problems Acute appendicitis (Acute) 63-year-old female with cecal inflammation/mass 1. Colonoscopy today at 11:30 am. Pt had no further questions about colonoscopy. If there was a mass found would plan for laparoscopic right hemicolectomy tomorrow about 12PM, would not wait for bx results as pt is at risk of appendicitis if the base of the appendix is obstructed due to inflammation/mass. Pt is agreeable with plan and all questions currently have been answered. Vicky Melvin M.D. Pager: [phone] [facility] [address] [place] [address], [address] [place] [address] Office: [phone]
--- NOTE | 2018-08-15 10:43 | NURSING ---
Report called to Diane MARTINEZ in [facility], informed pt does not have an IV, this nurse attempted 2 times, and charge nurse attempted 2 times, without success. pt has had mastectomy with lymph nodes removed. There is no order to obtain consent. Pt has hx of ETOH, with Monday the last day of intake.
--- NOTE | 2018-08-15 12:29 | OP.ENDO_ITS ---
08/15/2018 Stephanie Liu, NIKOLAI [address] [place] [address] Re : Colonoscopy procedure for Tierra Bullock Dear Ms. Liu This procedure was performed on Wednesday, August 15, 2018. My impressions and recommendations are as follows: Impressions : - Hemorrhoids found on perianal exam. - Likely malignant tumor in the cecum. Biopsied. - Diverticulosis in the sigmoid colon, in the descending colon, in the transverse colon and in the ascending colon. - Rectal polyp removed completely The examination was otherwise normal on direct and retroflexion views. Recommendations : - Return patient to referring hospital for ongoing care. - Clear liquid diet. - Continue present medications. - Await pathology results. - Will check CEA, LFTs, CT chest with contrast, plan for laparoscopic R chris tomorrow. - Repeat colonoscopy is recommended for surveillance. The colonoscopy date will be determined after pathology results from today's exam become available for review. My findings are described in the full procedure note, which is enclosed. If I can be of further assistance, please feel free to contact me at Doctor phone number(s): , Work: . Sincerely, MD Vicky Whittington MD 08/15/2018 12:29:00 PM This report has been signed electronically.
--- NOTE | 2018-08-15 12:53 | CT_ITS ---
STUDY: CT CHEST WITH CONTRAST REASON FOR EXAM: Female, 63 years old. History of a cecal mass. Staging for colon cancer. History of bilateral breast cancer and mastectomy. RADIATION DOSAGE (If Supplied By Facility): CTDIvol = ( 12.69 ) mGy, DLP = ( 332.75 ) mGycm TECHNIQUE: Transaxial imaging was performed following intravenous administration of 100 IV Isovue 300. Multiplanar coronal and sagittal images were reformatted. Individualized dose optimization techniques were used for this CT. COMPARISON: None. FINDINGS: There is an 8.5 mm x 7.8 mm calcified nodule in the right lobe of the thyroid gland. Prior bilateral mastectomy and breast implants. Small bilateral pleural effusions with mild increased markings at the lung bases suggestive of scarring and/or atelectasis. This is slightly worse on the left side. Calcified granuloma in the right lower lobe. Normal heart and pericardium. Normal mediastinum. Normal hilar regions. Normal enhanced pulmonary arteries. Normal aorta arch and descending thoracic aorta. There are multi-level degenerative changes of the thoracic spine. Small hiatal hernia. CT/Chest WITH Contrast IMPRESSION: Small bilateral pleural effusions with bibasilar atelectasis and/or scarring. Electronically Signed: Dav Kent, at 14:32 EDT , Service support ,
--- NOTE | 2018-08-15 12:59 | PCM.PN.BLA ---
Progress Note Discussed with patient and her that her last we did show cecal fungating mass which looks to be carcinoma. Multiple biopsies were taken and sent to pathology. However due to the proximity of the mass to the appendiceal orifice this patient would still require surgery. Discussed with patient would plan to get additional labs including a CEA and liver functions as well as CT of the chest for work-up; however again her work-up would not change the need for surgery. Discussed with the patient and her plan to do a laparoscopic right hemicolectomy possible open with risks including but not limited to bleeding, infection (superficial or intraabdominal), injury to another organ (small bowel, colon, ureter, etc.) requiring additional procedures, and blood clots. Also, discussed the pre-op antibiotics as she had the prep yesterday and will remain on clears. All questions were answered and they had no further questions. Vicky Melvin M.D. Pager: [phone] [facility] [address] [place] [address], [address] [place] [address] Office: [phone]
--- NOTE | 2018-08-15 13:02 | PN_ITS ---
Progress Note Discussed with patient and her that her last we did show cecal fungating mass which looks to be carcinoma. Multiple biopsies were taken and sent to pathology. However due to the proximity of the mass to the appendiceal orifice this patient would still require surgery. Discussed with patient would plan to get additional labs including a CEA and liver functions as well as CT of the chest for work-up; however again her work-up would not change the need for surgery. Discussed with the patient and her plan to do a laparoscopic right hemicolectomy possible open with risks including but not limited to bleeding, infection (superficial or intraabdominal), injury to another organ (small bowel, colon, ureter, etc.) requiring additional procedures, and blood clots. Also, discussed the pre-op antibiotics as she had the prep yesterday and will remain on clears. All questions were answered and they had no further questions. Vicky Melvin M.D. Pager: [phone] [facility] [address] [place] [address], [address] [place] [address] Office: [phone]
[2018-08-15] MEDS: Ensure Clear 120 ML Liquid PO ×2 (13:24→15:49)
[2018-08-15 13:29] LABS: AST(SGOT) 22 U/L (15-37); Alanine Aminotransfer ALT/SGPT 24 U/L (13-56); Albumin, Serum 2.9 g/dL (3.2-5.0); Alkaline Phosphatase 69 U/L (45-117); Bilirubin, Direct 0.16 mg/dL (0.00-0.30); Globulin 2.7 g/dL (2.2-4.2); Protein, Total 5.6 g/dL (6.4-8.2)
--- NOTE | 2018-08-15 15:23 | CHAPLAIN ---
Type of Pastoral Visit ___ Initial Visit _x__ Follow-up Visit ___ On-call Visit ___ General Patient Visit ___ Spiritual Assessment ___ Family Conference ___ Bereavement ___ Rapid Response ___ Code Blue ___ Other (describe below) Pastoral Care Referral From _x__ Patient ___ Family ___ Nurse ___ Physician ___ Mopper ___ Manager Imaging ___ Other (describe below) Sacrament/Intervention _x__ Active listening ___ Anointing ___ Alevism ___ Bereavement ___ Communion ___ Elida exploration ___ ___ Life review _x__ Prayer ___ Reconciliation ___ Sacrament of Sick ___ Supportive presence ___ Wedding ___ Other (describe below) Pastoral Comments follow up requested by patient per the outcome of testing today; surgery scheduled for
[2018-08-15] MEDS: metroNIDAZOLE 500 MG Tablet 1000 MG PO ×3 (15:48→22:12)
[2018-08-15] MEDS: Ibuprofen 400 MG Tablet PO (18:50)
--- NOTE | 2018-08-15 22:22 | NURSING ---
I was instructed from jose rn and pt that i am not to wake pt up for vitals and assessment until pt has had her labs drawn per
[2018-08-16] VITALS (14 sets, daily range): BP systolic 131–167; BP diastolic 80–95; PULSE 56–78; RESP 16–18; TEMP 36.5–37.5; O2SAT 93–95; BMI 22.7; BMI 22.6
--- NOTE | 2018-08-16 | COL._PTH ---
PATIENT: CAPRI HERNANDEZ LOC: MS3 U#:[id number] AGE/SX: 63/F [place] [facility] [place]: Dr. Vicky Melvin MD : [id number] BED: 1 DIS: 08/17/2018 SPEC #: [id number] RECD: 08/16/18 15:17 STATUS: TERESA PHILLIP #: [id number] KINSEY: 08/16/18 00:[address]: Vicky Melvin DEPT: SURGICAL PATHOLOGY RECD BY: Sybil Martinez ENTERED: 08/17/18 08:39 SP TYPE: COLON OTHR DR: MD Stephanie Swenson, LIQUIFIED NATURAL GAS SPECIALIST-C Tissues: Colon, NOS Procedures: Surgery Specimen Level HEADER OPERATION: Laparoscopic right hemicolectomy PRE-OP DIAGNOSIS: Cecal mass TISSUE SUBMITTED: Right colon tissue and staple line MICROSCOPIC DIAGNOSIS Right colon, colectomy: Invasive moderately differentiated adenocarcinoma. See cancer checklist below. AM:ashley 08/21/18 COMMENT COLON CANCER SUMMARY: Specimen - right colon Procedure - right hemicolectomy Tumor site - cecum Tumor size - 3 x 3 x 0.5 cm Macroscopic tumor perforation - not present Histologic type - adenocarcinoma Histologic grade - low grade (moderately differentiated) Microscopic tumor extension - tumor invades into the muscularis propria. Margins: Proximal margin - uninvolved by carcinoma. Distal margin - uninvolved by carcinoma. Circumferential margin - uninvolved by carcinoma. Closest mucosal margin - 8.5 cm (proximal margin) Lymph-Vascular invasion - not identified Perineural invasion - not identified Tumor deposits - not identified Lymph nodes: Number of lymph nodes examined - 15 Number of lymph nodes involved - 0 Additional pathologic findings - early acute appendicitis. Ancillary studies: See microsatellite instability study by IHC ([id number]) for complete details. Positive for microsatellite instability. Loss of 1 of 4 markers: PMS2 See specimen [id number] for complete details. PATHOLOGIC STAGE: pT2 N0 Mx The above summary is in compliance with [employer] [place] [employer] (CAP) Cancer Protocols Checklist and [place] Joint Committee on Cancer (AJCC), Staging Manual, 8th Ed. Reference is made to the patient's previous cecal mass biopsy ([id number]) in which invasive adenocarcinoma arising in the background of tubulovillous adenoma is identified. This case was reviewed and diagnosis discussed with Dr. Melvin on 08/21/18. Case has been reviewed in consultation with Dr. Shultz who concurs with the above diagnosis. IDC:SJ MICROSCOPIC DESCRIPTION Slides are reviewed. GROSS DESCRIPTION Received in fixative is one container labeled with the patient's name and designated right colon tissue and staple line. The specimen consists of a right hemicolectomy specimen consisting of cecum with ascending colon, segment of small intestine, appendix with attached pericolonic adipose tissue. The cecum with ascending colon measures 20 cm in length and the segment of small intestine measures 7 cm in length and the appendix measures 7 cm in length and 0.6 cm in diameter. Both resection margins are stapled. Also present in the container are two donut-shaped pieces of tissues measuring 4 x 2 x 0.6 cm and 1 x 0.5 x 0.5 cm. 20 cm away from the distal resection and 1.5 cm away from the ileocecal valve, there is an ulcerated, indurated mass in the cecum measuring 3 x 3 x 0.5 cm. The mass is also present over the appendicular opening. The lumen contains small amount of focal material. The serosal surface overlying the tumor is inked black. Lymph node at the pericolonic adipose tissue is fixed in lymph node revealing solution. More dictation will follow after overnight fixation. / SJ:ashley 08/16/18 Sections of the appendix reveal liquified mucoid fecal material. No fecalith is identified. Sections of the tumor mass in the cecum reveal invasion of muscularis propria by tumor. No invasion of the pericolonic adipose is noted. Sections of pericolonic adipose tissue reveal multiple lymph nodes. The largest lymph node measures 2 cm in greatest dimension. Sections of the omentum do not reveal any mass lesion. Wardrobe Attendant sections are submitted as follows: 1 - anastomotic donut, 2 & 3 - appendix (cassette 2 contains the tip and most proximal portion inked black), 4-7 - tumor (cassette 6 also contains the appendicular opening), 8 - sales and service representative section of ileocecal valve, small and large intestine, 9 - one bisected lymph node, 10 - one serially sectioned lymph node, 11 - multiple lymph nodes, 12 - one bisected lymph node, 13 - one serially sectioned lymph node (the largest lymph node), 14 - multiple possible lymph nodes, 15 - omentum, 16 - proximal and distal resection margin. / SJ:ashley 08/17/18 More sections are submitted as follows: 17 & 18 - multiple lymph nodes. / SJ:ashley 08/20/18 TC:0 CPT: 32841
--- NOTE | 2018-08-16 06:00 | EKG12_ITS ---
Test Reason : PRE-OP Blood Pressure : / mmHG Vent. Rate : 071 BPM Atrial Rate : 071 BPM P-R Int : 152 ms QRS Dur : 136 ms QT Int : 426 ms P-R-T Axes : 077 091 040 degrees QTc Int : 462 ms Normal sinus rhythm with sinus arrhythmia Right bundle branch block Abnormal ECG Confirmed by SEJAL MEDEROS, RADHA ([id number]), department editor KURTIS SIMS ([id number]) on 08/17/2018 8:16:32 AM Referred By: MIK Confirmed By:RADHA POST MD
[2018-08-16 08:07] LABS: Absolute Lymphocyte Count 2.85 X10^3/ul (0.83-4.51); Basophil# 0.02 X10^3/uL; Basophil% 0.2 % (0-1); Eosinophil# 0.08 X10^3/uL; Eosinophils% 0.9 % (0-5); Hematocrit 35.2 % (37-47); Hemoglobin 11.5 g/dl (12.0-15.0); Lymphocyte # 2.85 X10^3/ul (4.0); Lymphocyte % 32.9 % (19-41); Mean Corp Hgb Conc 32.7 g/gl (32-36); Mean Corpuscular Hgb 28.9 pg (27.0-32.0); Mean Corpuscular Volume 88.4 fL (81-99); Mean Platelet Vol. 10.8 fl (6.2-12.0); Monocyte# 0.75 X10^3/uL; Monocyte% 8.7 % (0-10); Neutrophil # 4.96 X10^3/uL (2.7-7.7); Neutrophil % 57.2 % (47-70); POSITIVE COUNT NO; POSITIVE DIFFERENTIAL NO; POSITIVE MORPHOLOGY NO; Platelet Count 212 K/mm3 (150-450); RBC Distribution Width CV 13.6 % (11.6-14.6); RBC Distribution Width SD 44.2 fl (35.1-43.9); Red Blood Count 3.98 M/mm3 (4.2-5.4); White Blood Count 8.7 K/mm3 (4.4-11.0)
[2018-08-16 08:26] LABS: Anion Gap 7 (5-15); BUN 7 mg/dL (7-18); BUN/Creat Ratio 13.2 RATIO (10-20); Calcium,Total 8.2 mg/dL (8.5-10.1); Chloride 113 mmol/L (98-107); Creatinine, Serum 0.53 mg/dL (0.55-1.02); EST Glomerular Filtration Rate 124 mL/min (>60); Est Glom Filt Rate - Afr Amer 149 mL/min (>60); Estimated Creatinine Clearance 95.04 ml/min; Glucose 136 mg/dL (74-106); Potassium 3.1 mmol/L (3.5-5.1); Sodium Level 144 mmol/L (136-145)
[2018-08-16 08:29] LABS: Carcinoembryonic Antigen 4.7 ng/mL (0.0-4.7)
--- NOTE | 2018-08-16 09:17 | PCM.PN.SRG ---
Patient Problems: Active and Suspected Problems Acute appendicitis (Acute) Subjective: Pt denies abd pain, K 3.1 - Physical Exam General: Alert, Oriented x3, Cooperative, No apparent distress HEENT: Atraumatic Lungs: Normal air movement Cardiovascular: Regular rate Abdomen: Soft, Non-Distended, Passing Flatus, Tender - near incision c/d/i with opsites Extremities: No clubbing, No cyanosis, No edema Neurological: Cranial nerves II-XII grossly intact Psych/Mental Status: Normal Affect Vital Signs Temp Pulse Resp BP Pulse Ox 97.7 F L 68 17 131/87 H 95 08/16/18 06:11 08/16/18 06:11 08/16/18 06:11 08/16/18 06:11 08/16/18 06:11 Oxygen Delivery Method Room Air Weight: 131 lb 13.383 oz Body Mass Index (BMI) 22.6 Intake and Output for Last 24 Hours 08/14/18 08/15/18 08/16/18 23:59 23:59 23:59 Intake Total 3890 / 3890 1359 / 1359 440 / 440 Balance 3890 / 3890 1359 / 1359 440 / 440 Laboratory Tests Past 24 Hrs 08/15/18 08/15/18 08/16/18 12:45 12:45 06:04 WBC 8.7 RBC 3.98 L Hgb 11.5 L Hct 35.2 L MCV 88.4 MCH 28.9 MCHC 32.7 RDW 13.6 RDW Differential 44.2 H Plt Count 212 MPV 10.8 Immature Gran % (Auto) 0.100 Neut % (Auto) 57.2 Lymph % (Auto) 32.9 [place] % (Auto) 8.7 Eos % (Auto) 0.9 Baso % (Auto) 0.2 Absolute Neuts (auto) 5.0 Absolute Lymphs (auto) 2.85 Total Counted Not Reportable Sodium Potassium Chloride Carbon Dioxide Anion Gap BUN Creatinine Estim Creat Clear Calc Est GFR (MDRD) Af Amer Est GFR (MDRD) Non-Af BUN/Creatinine Ratio Glucose Calcium Total Bilirubin 0.60 Direct Bilirubin 0.16 AST 22 ALT 24 Alkaline Phosphatase 69 Total Protein 5.6 L Albumin 2.9 L Globulin 2.7 Carcinoembryonic Ag 4.7 08/16/18 06:04 WBC RBC Hgb Hct MCV MCH MCHC RDW RDW Differential Plt Count MPV Immature Gran % (Auto) Neut % (Auto) Lymph % (Auto) [place] % (Auto) Eos % (Auto) Baso % (Auto) Absolute Neuts (auto) Absolute Lymphs (auto) Total Counted Sodium 144 Potassium 3.1 L Chloride 113 H Carbon Dioxide 24.0 Anion Gap 7 BUN 7 Creatinine 0.53 L Estim Creat Clear Calc 95.04 Est GFR (MDRD) Af Amer 149 Est GFR (MDRD) Non-Af 124 BUN/Creatinine Ratio 13.2 Glucose 136 H Calcium 8.2 L Total Bilirubin Direct Bilirubin AST ALT Alkaline Phosphatase Total Protein Albumin Globulin Carcinoembryonic Ag Medical Necessity - Tobacco Use Smoking Status: Current some day smoker Tobacco Use: Cigarettes Assessment/Plan All Active Problems Acute appendicitis (Acute) 63-year-old female with cecal mass 1. laparoscopic right hemicolectomy, possible open today about 12PM. Pt has no further questions and all questions currently have been answered. K 3.1 replace, check mag Vicky Melvin M.D. Pager: [phone] [facility] [address] [place] [address], [address] [place] [address] Office: [phone]
[2018-08-16 09:50] LABS: Magnesium 1.9 mg/dL (1.6-2.6)
[2018-08-16] MEDS: Potassium Chloride 10mEq/100mL 10 MEQ/100 ML IV.SOLN. 100 MEQ IV BOLUS ×3 (10:30→11:30)
--- NOTE | 2018-08-16 11:25 | PCA ---
pt off floor
[2018-08-16] MEDS: Scopolamine 1mg/72hr Patch 1 PATCH TD (11:44)
--- NOTE | 2018-08-16 14:06 | PCA ---
pt off floor
[2018-08-16] MEDS: BUPIVACAINE LIPOSOME/PF 20 ML VIAL OPERA.SITE (15:00)
[2018-08-16] MEDS: Bupivacaine 0.25% 30 ML Vial (15:00)
--- NOTE | 2018-08-16 15:09 | PCM.OPRPT ---
Report of Operation Date of Procedure: 08/16/18 Pre-Operative Diagnosis: Cecal mass Post-Operative Diagnosis: Same Surgery/Procedure Performed:: Laparoscopic right chris-colectomy converted to open bean roaster: Cici Fisher Type of Anesthesia:: General/Supplemental Anesthesiologist: Maurilio Corbin Special Medications: Cefotetan 2 g IV x1 Specimen's removed: Right colon Estimated Blood Loss (mL): 30 cc Fluids Replaced: 1200 cc Description of Procedure: Indications this is a 63-year-old female who had a cecal mass on diagnostic laparoscopy. Patient underwent colonoscopy which did show a 3 cm fungating mass in the cecum near the orifice of the appendix. Laparoscopic right chris-colectomy possible open was elected patient was agreeable to proceed. Description procedure: The patient was placed on operating table in supine position. General Anesthesia was induced. A timeout was completed verifying correct patient, procedure, site, position, social, and special equipment prior to beginning procedure. An orogastric tube was placed. The abdomen was prepped and draped in usual sterile fashion. Previous supraumbilical incision was re-incised. The fascia was elevated and incised. The peritoneum was elevated and incised. Entry into the peritoneum was confirmed visually and no bowel was noted in the vicinity of the incision. Alvarez trocar was placed. The abdomen was insufflated with carbon dioxide to a pressure of 12-15 mmHg. Patient tolerated insufflation well. The laparoscope was then inserted and abdomen inspected. No injuries from initial trocar placement were noted. Tap block was done laterally bilaterally every centimeter confirming adequate local anesthesia with laparoscope with mixture of Exparel 20 cc, Marcaine 0.25% 30 cc, with 50 cc of saline. Additional trochars were then inserted in the following locations 5 mm trocars at previous trocar sites suprapubic and left lower quadrant. An additional 5 mm trochar was placed in the lateral left upper quadrant. The abdomen was inspected the area of the cecal mass appreciated with graspers, liver appeared normal, no other abnormalities noted. The table is placed in Trendelenburg position with the right side up. The cecum was grasped and lifted up to tent the ileocolic artery. The dissection was then started at the base of the ileocolic artery were joined the superior mesenteric artery. However there is a node noted right at the proximal ileocolic artery. Dissection continued bluntly in the retroperitoneum using traction and countertraction technique with gentle sweeping and visualization of the ureter was confirmed. This dissection was carried along the plane of the white line of Toldt to the duodenum. The duodenum and its attachments were swept downward. This dissection continued in an avascular plane to the liver and gallbladder were encountered. Due to the node at the proximal ileocolic artery, we converted to open. The trochars removed under direct visualization. The supraumbilical incision was enlarged 2 about 7 cm in length. A wound protector was then placed into the peritoneal cavity to prevent port site implantation as well as minimize risk of wound infection. They ascending and transverse colon were then delivered and extracted. The small bowel and colon was then divided extracorporeally with the LUIS E-75 after the right branch of the middle colic was also divided with the LigaSure. The ileocolic vessels were carefully dissected to include the node with the specimen. Two proximal hemo-lock 10 mm clips were placed on the vessels with one distal. The vessels were divided with scissors. Hemostasis was confirmed. The specimen was removed and sent to pathology. Then the end of the ileum and transverse colon were then aligned, ensuring that the mesentery was not twisted, and the staple [id number] anastomosis using the LUIS E-75 and TL 60. The anastomosis was patent and there is no twisting of the mesentery. Patient did have a little oozing at the staple line. This was controlled with 3-0 Vicryl interrupted sutures. Once the wound protector was removed, gowns and gloves were changed. The supraumbilical incision was closed with 0 PDS suture at the fascia and then the skin was closed with 4-0 Monocryl interrupted sutures. A 5 mm trocar sites are closed with 4-0 Monocryl interrupted suture. Dry sterile dressings were applied. The sponge and instrument count were correct. The patient was extubated. The patient tolerated procedure well and was taken to the postanesthesia care unit in stable condition. - Complications none
--- NOTE | 2018-08-16 15:22 | OP.PCM_ITS ---
Report of Operation Date of Procedure: 08/16/18 Pre-Operative Diagnosis: Cecal mass Post-Operative Diagnosis: Same Surgery/Procedure Performed:: Laparoscopic right chris-colectomy converted to open compensation programs manager: Cici Fisher Type of Anesthesia:: General/Supplemental Anesthesiologist: Maurilio Corbin Special Medications: Cefotetan 2 g IV x1 Specimen's removed: Right colon Estimated Blood Loss (mL): 30 cc Fluids Replaced: 1200 cc Description of Procedure: Indications this is a 63-year-old female who had a cecal mass on diagnostic laparoscopy. Patient underwent colonoscopy which did show a 3 cm fungating mass in the cecum near the orifice of the appendix. Laparoscopic right chris- colectomy possible open was elected patient was agreeable to proceed. Description procedure: The patient was placed on operating table in supine position. General Anesthesia was induced. A timeout was completed verifying correct patient, procedure, site, position, social, and special equipment prior to beginning procedure. An orogastric tube was placed. The abdomen was prep ped and draped in usual sterile fashion. Previous supraumbilical incision was re-incised. The fascia was elevated and incised. The peritoneum was elevated and incised. Entry into the peritoneum was confirmed visually and no bowel was noted in the vicinity of the incision. Alvarez trocar was placed. The abdomen was insufflated with carbon dioxide to a pressure of 12-15 mmHg. Patient tolerated insufflation well. The laparoscope was then inserted and abdomen inspected. No injuries from initial trocar placement were noted. Tap block was done laterally bilaterally every centimeter confirming adequate local anesthesia with laparoscope with mixture of Exparel 20 cc, Marcaine 0.25% 30 cc, with 50 cc of saline. Additional trochars were then inserted in the following locations 5 mm trocars at previous trocar sites suprapubic and left lower quadrant. An additional 5 mm trochar was placed in the lateral left upper quadrant. The abdomen was inspected the area of the cecal mass appreciated with graspers, liver appeared normal, no other abnormalities noted. The table is placed in Trendelenburg position with the right side up. The cecum was grasped and lifted up to tent the ileocolic artery. The dissection was then started at the base of the ileocolic artery were joined the superior mesenteric artery. However there is a node noted right at the proximal ileocolic artery. Dissection continued bluntly in the retroperitoneum using traction and countertraction technique with gentle sweeping and visualization of the ureter was confirmed. This dissection was carried along the plane of the white line of Toldt to the duodenum. The duodenum and its attachments were swept downward. This dissection continued in an avascular plane to the liver and gallbladder were encountered. Due to the node at the proximal ileocolic artery, we converted to open. The trochars removed under direct visualization. The supraumbilical incision was enlarged 2 about 7 cm in length. A wound protector was then placed into the peritoneal cavity to prevent port site implantation as well as minimize risk of wound infection. They ascending and transverse colon were then delivered and extracted. The small bowel and colon was then divided extracorporeally with the LUIS E-75 after the right branch of the middle colic was also divided with the LigaSure. The ileocolic vessels were carefully dissected to include the node with the specimen. Two proximal hemo-lock 10 mm clips were placed on the vessels with one distal. The vessels were divided with scissors. Hemostasis was confirmed. The specimen was removed and sent to pathology. Then the end of the ileum and transverse colon were then aligned, ensuring that the mesentery was not twisted, and the staple [id number]-[id number] anastomosis using the LUIS E-75 and TL 60. The anastomosis was patent and there is no twisting of the mesentery. Patient did have a little oozing at the staple line. This was controlled with 3-0 Vicryl interrupted sutures. Once the wound protector was removed, gowns and gloves were changed. The supraumbilical incision was closed with 0 PDS suture at the fascia and then the skin was closed with 4-0 Monocryl interrupted sutures. A 5 mm trocar sites are closed with 4-0 Monocryl interrupted suture. Dry sterile dressings were applied. The sponge and instrument count were correct. The patient was extubated. The patient tolerated procedure well and was taken to the postanesthesia care unit in stable condition. - Complications none
--- NOTE | 2018-08-16 16:00 | PCA ---
pt off floor
[2018-08-16] MEDS: Ketorolac 15 MG/ML Vial IV ×2 (16:34→22:58)
--- NOTE | 2018-08-16 18:09 | PCA ---
pt off floor
[2018-08-16] MEDS: Lactated Ringers 1,000 ML 40 ML IV (18:54)
[2018-08-16] MEDS: Sertraline 50 MG Tablet 25 MG PO (20:25)
[2018-08-16] MEDS: Multivitamins,Therapeutic Tablet 1 TABLET PO (20:25)
[2018-08-16] MEDS: Ondansetron 4 MG/2 ML Vial IV (21:26)
[2018-08-16] MEDS: Acetaminophen 500 MG Tablet 1000 MG PO (22:57)
[2018-08-17] MEDS: proMETHazine 25 MG/ML Syringe 6.25 MG IV (02:10)
[2018-08-17 02:24] VITALS: BP 156/78; PULSE 75; RESP 18; TEMP 36.2; O2SAT 96
[2018-08-17] MEDS: Ketorolac 15 MG/ML Vial IV ×2 (05:49→11:58)
[2018-08-17 06:20] LABS: Hematocrit 38.2 % (37-47); Hemoglobin 12.8 g/dl (12.0-15.0); Mean Corp Hgb Conc 33.5 g/gl (32-36); Mean Corpuscular Hgb 28.6 pg (27.0-32.0); Mean Corpuscular Volume 85.5 fL (81-99); Mean Platelet Vol. 10.7 fl (6.2-12.0); Platelet Count 271 K/mm3 (150-450); RBC Distribution Width CV 13.2 % (11.6-14.6); RBC Distribution Width SD 41.5 fl (35.1-43.9); Red Blood Count 4.47 M/mm3 (4.2-5.4); White Blood Count 14.7 K/mm3 (4.4-11.0)
[2018-08-17 06:21] LABS: Scan Indicated on CBC? Y/N NO
[2018-08-17 06:33] LABS: Anion Gap 10 (5-15); BUN 4 mg/dL (7-18); BUN/Creat Ratio 7.6 RATIO (10-20); Calcium,Total 8.3 mg/dL (8.5-10.1); Chloride 101 mmol/L (98-107); Creatinine, Serum 0.52 mg/dL (0.55-1.02); EST Glomerular Filtration Rate 126 mL/min (>60); Est Glom Filt Rate - Afr Amer 152 mL/min (>60); Estimated Creatinine Clearance 96.86 ml/min; Glucose 121 mg/dL (74-106); Potassium 3.9 mmol/L (3.5-5.1); Sodium Level 135 mmol/L (136-145)
[2018-08-17 07:22] VITALS: O2SAT 96
--- NOTE | 2018-08-17 08:22 | PCM.PN.SRG ---
Patient Problems: Active and Suspected Problems Acute appendicitis (Acute) Subjective: Patient had some nausea and vomiting last night after she got her multivitamins she felt like it sat in her stomach and she could taste it. Patient denies any nausea or vomiting currently. Is controlled with Toradol. Elliott was removed and patient is voiding well - Physical Exam General: Alert, Oriented x3, Cooperative, No apparent distress HEENT: Atraumatic Lungs: Normal air movement Cardiovascular: Regular rate Abdomen: Soft, Distended - mild, Tender - Near incisions clean dry and intact with OpSites, no peritoneal signs Extremities: No clubbing, No cyanosis, No edema Neurological: Cranial nerves II-XII grossly intact Vital Signs Temp Pulse Resp BP Pulse Ox 97.2 F L 75 18 156/78 H 96 08/17/18 02:24 08/17/18 02:24 08/17/18 02:24 08/17/18 02:24 08/17/18 02:24 Oxygen Delivery Method Room Air Weight: 132 lb 9.6 oz Body Mass Index (BMI) 22.7 Intake and Output for Last 24 Hours 08/15/18 08/16/18 08/17/18 23:59 23:59 23:59 Intake Total 1359 / 1359 2843 / 2843 292 / 292 Output Total 1375 / 1375 800 / 800 Balance 1359 / 1359 1468 / 1468 -508 / -508 Laboratory Tests Past 24 Hrs 08/15/18 08/16/18 08/16/18 12:45 06:04 06:04 WBC RBC Hgb Hct MCV MCH MCHC RDW RDW Differential Plt Count MPV Sodium 144 Potassium 3.1 L Chloride 113 H Carbon Dioxide 24.0 Anion Gap 7 BUN 7 Creatinine 0.53 L Estim Creat Clear Calc 95.04 Est GFR (MDRD) Af Amer 149 Est GFR (MDRD) Non-Af 124 BUN/Creatinine Ratio 13.2 Glucose 136 H Calcium 8.2 L Magnesium 1.9 Carcinoembryonic Ag 4.7 08/17/18 08/17/18 05:45 05:45 WBC 14.7 H RBC 4.47 Hgb 12.8 Hct 38.2 MCV 85.5 MCH 28.6 MCHC 33.5 RDW 13.2 RDW Differential 41.5 Plt Count 271 MPV 10.7 Sodium 135 L Potassium 3.9 Chloride 101 Carbon Dioxide 24.0 Anion Gap 10 BUN 4 L Creatinine 0.52 L Estim Creat Clear Calc 96.86 Est GFR (MDRD) Af Amer 152 Est GFR (MDRD) Non-Af 126 BUN/Creatinine Ratio 7.6 L Glucose 121 H Calcium 8.3 L Magnesium Carcinoembryonic Ag Medical Necessity - Tobacco Use Smoking Status: Current some day smoker Tobacco Use: Cigarettes Assessment/Plan All Active Problems Acute appendicitis (Acute) 63-year-old female with cecal mass, postop day 1 laparoscopic converted open right hemicolectomy 1. Patient's nausea vomiting last night, will be on clears this morning see how she does that she is able to tolerate clears can be advanced to transitional. 2. Patient had a white blood count this morning of 14.7 question of the new with her nausea and vomiting, she is doing great today may recheck later prior to DC. Vicky Melvin M.D. Pager: [phone] [facility] [address] [place] [address], [address] [place] [id number] Office: [phone]
[2018-08-17 08:30] VITALS: BP 165/100; PULSE 75; RESP 16; TEMP 36.9; O2SAT 96
[2018-08-17] MEDS: Docusate Sodium 100 MG Capsule PO (09:32)
[2018-08-17] MEDS: Enoxaparin 40 MG/0.4 ML Syringe SC (09:32)
--- NOTE | 2018-08-17 09:35 | CASEMGMT ---
RN CM AGRICULTURAL EXTENSION AGENT CM to room to meet with patient for initial transition planning/care coordination assessment. RN TRAV introduced self and role at [facility]. Pt voices understanding and consents to assessment at this time. Pt resting in bed in no distress at this time. @ bedside. Pt is A/O at this time and answers all questions appropriately. Care providers, pharmacy, and demographics verified/updated at this time. PCP: Stephanie Liu Specialists: Dr Mcnamara--gynecology Preferred Pharmacy: [facility], [place] Insurance: [place] Prescription Benefit: Yes Living Will/HPOA: Has both LW and HCPOA, who is her daughter, Raysa Vazquez. LNOK: , daughter Living Arrangements: Lives with her in [facility]. Independent w/ADL's. able to assist @ discharge with any needs. Transportation: Pt states drives self and states no transportation concerns at this time. will drive her home @ discharge. DME: Denies using any DME and denies needs. HHC/SNF: No history of SNF. Did have HHC after double mastectomy in 2007 but does not remember the name of the agency. Denies needs and no needs identified. Pt wishes to return home and states has no concerns with going home at time of discharge. CM to follow for any discharge planning/needs. Pt and voice no concerns/needs at this time. Advised pt to ask for CM if any questions/concerns/needs arise. Voices understanding. PLAN: Home with spousal support and discharge plans in place. Jennifer DORSEY RN, CM
[2018-08-17 12:00] VITALS: BP 163/84; PULSE 77; RESP 18; TEMP 37.2; O2SAT 95
--- NOTE | 2018-08-17 13:24 | DCINST_ITS ---
Discharge Diet: - - Transitional diet till tzjqul-[id number]-9-2 weeks Discharge Activity: May not drive while taking narcotic pain medications. May shower in (days): 1 Lifting Restrictions: No lifting or 20 pounds x 4 weeks Call your doctor if your incision/area has: Continuous Slow Oozing, Sudden Increased Bleeding, Increased Pain/ Swelling, Increased Redness, Foul Smelling Discharge, Swelling at the incision site Call your doctor if you observe: Fever of 101 or Higher Remove Dressing in (days):: 1 - Abdominal binder for comfort only Additional Instructions: Okay to take Tylenol 650 mg p.o. every 6 hours as needed or ibuprofen 200 to 800 mg p.o. every 6 as needed for pain. Take all pain meds with food. Allergies/Adverse Reactions: Allergies No Known Allergies Allergy (Verified 08/13/18 19:19) Medications to take at Discharge Alprazolam [Xanax] 0.25 mg PO BID PRN 08/13/18 Aspirin [Aspirin, Baby] 81 mg PO DAILY@0800 08/13/18 Lorazepam [Ativan] 0.5 mg PO DAILY PRN 08/13/18 Sertraline HCl [Zoloft] 25 mg PO DAILY 08/13/18 Vit D3/Folic Acid/B2/B6/B12 [Folgard Tablet] 1 each PO DAILY 08/13/18 Primary Care Physician: Stephanie Liu NP-C [Primary Care Provider] - Test Results: Test results from this visit will be discussed in further detail at your follow- up appointment, if applicable. Please Follow Up With: Vicky Melvin MD - after 5PM/weekend call [phone] When: 1-2 week call office for f/u [phone] Proposed Discharge Date: 08/17/18
--- NOTE | 2018-08-17 13:56 | PCM.DC.SUM ---
Discharge Date and Diagnosis - Problem List Patient Problems: Active and Suspected Problems Acute appendicitis (Acute) Date of Admission: 08/13/18 Date of Discharge: 08/17/18 - Primary Discharge Diagnosis Active and Suspected Problems Acute appendicitis (Acute) invasive cecal carcinoma Hospital Course and Treatment Operations: - - dx laparoscopy 08/13/18, lap converted to open right hemicolectomy 08/16/18 Procedures: None Summary of Care Provided: The patient is a 63 year old F presented to the ER with right lower quadrant pain for 3 days[address] Patient had a CT abdomen pelvis which was consistent with acute appendicitis with some information at the base of the cecum as well. Patient had a normal white blood cell count this time. She was given Zosyn and IV in the ER. Patient was taken for planned laparoscopic appendectomy which turned into a diagnostic laparoscopy where there is found to be a mass at the base of the cecum with a normal-appearing appendix. The appendectomy was aborted plan for work-up for the cecal mass. Patient never had a colonoscopy previously. Following day she did undergo a bowel prep states her right lower quadrant pain was a little bit better. 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 Patient also has small rectal polyp no pathological diagnosis. Following day on 08/16/2018 patient was taken for a lap converted to open hemicolectomy due to lymph nodes being at the proximal ileocolic vessels. Postoperatively patient was started on a clear diet. Postop day 1 patient was passing flatus tolerated clears was advanced to a transitional diet and was ready to be DC'd home. Patient does not need any narcotic medications after surgery. Patient Problems: Active and Suspected Problems Acute appendicitis (Acute) - Physical Exam General: Alert, Oriented x3, Cooperative, No apparent distress HEENT: Atraumatic Lungs: Normal air movement Cardiovascular: Regular rate Abdomen: Soft, Distended - mild, Tender - near incisions c/d/i Extremities: No clubbing, No cyanosis, No edema Neurological: Cranial nerves II-XII grossly intact Psych/Mental Status: Normal Affect Vital Signs Temp Pulse Resp BP Pulse Ox 98.9 F 77 18 163/84 H 95 08/17/18 12:00 08/17/18 12:00 08/17/18 12:00 08/17/18 12:00 08/17/18 12:00 Oxygen Delivery Method Room Air Weight: 132 lb 9.6 oz Body Mass Index (BMI) 22.7 Intake and Output for Last 24 Hours 08/15/18 08/16/18 08/17/18 23:59 23:59 23:59 Intake Total 1359 / 1359 2843 / 2843 832 / 832 Output Total 1375 / 1375 1800 / 1800 Balance 1359 / 1359 1468 / 1468 -968 / -968 Laboratory Tests Past 24 Hrs 08/17/18 08/17/18 05:45 05:45 WBC 14.7 H RBC 4.47 Hgb 12.8 Hct 38.2 MCV 85.5 MCH 28.6 MCHC 33.5 RDW 13.2 RDW Differential 41.5 Plt Count 271 MPV 10.7 Sodium 135 L Potassium 3.9 Chloride 101 Carbon Dioxide 24.0 Anion Gap 10 BUN 4 L Creatinine 0.52 L Estim Creat Clear Calc 96.86 Est GFR (MDRD) Af Amer 152 Est GFR (MDRD) Non-Af 126 BUN/Creatinine Ratio 7.6 L Glucose 121 H Calcium 8.3 L Discharge Diet: - - Transitional diet till tuillw-ey-7-2 weeks Discharge Activity: May not drive while taking narcotic pain medications. May shower in (days): 1 Call your doctor if your incision/area has: Continuous Slow Oozing, Sudden Increased Bleeding, Increased Pain/ Swelling, Increased Redness, Foul Smelling Discharge, Swelling at the incision site Call your doctor if you observe: Fever of 101 or Higher Remove Dressing in (days):: 1 - Abdominal binder for comfort only Home Medications: Medications to take at Discharge Alprazolam [Xanax] 0.25 mg PO BID PRN 08/13/18 Aspirin [Aspirin, Baby] 81 mg PO DAILY@0800 08/13/18 Lorazepam [Ativan] 0.5 mg PO DAILY PRN 08/13/18 Sertraline HCl [Zoloft] 25 mg PO DAILY 08/13/18 Vit D3/Folic Acid/B2/B6/B12 [Folgard Tablet] 1 each PO DAILY 08/13/18 Primary Care Physician: Stephanie Liu, SILK SCREEN PROCESSOR-C [Primary Care Provider] - Please Follow Up With: Vicky Melvin MD - after 5PM/weekend call [phone] When: 1-2 week call office for f/u [phone] Medical Necessity - Tobacco Use Smoking Status: Current some day smoker Tobacco Use: Cigarettes Meaningful Use Info Meaningful Use Diagnoses (Choose all that apply): None applicable
--- NOTE | 2018-08-17 14:01 | DS.PCM_ITS ---
Discharge Date and Diagnosis - Problem List Patient Problems: Active and Suspected Problems Acute appendicitis (Acute) Date of Admission: 08/13/18 Date of Discharge: 08/17/18 - Primary Discharge Diagnosis Active and Suspected Problems Acute appendicitis (Acute) invasive cecal carcinoma Hospital Course and Treatment Operations: - - dx laparoscopy 08/13/18, lap converted to open right hemicolectomy 08/16/18 Procedures: None Summary of Care Provided: The patient is a 63 year old F presented to the ER with right lower quadrant pain for 3 days. Patient had a CT abdomen pelvis which was consistent with acute appendicitis with some information at the base of the cecum as well. Patient had a normal white blood cell count this time. She was given Zosyn and IV in the ER. Patient was taken for planned laparoscopic appendectomy which turned into a diagnostic laparoscopy where there is found to be a mass at the base of the cecum with a normal-appearing appendix. The appendectomy was aborted plan for work-up for the cecal mass. Patient never had a colonoscopy previously. Following day she did undergo a bowel prep states her right lower quadrant pain was a little bit better. 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 Patient also has small rectal polyp no pathological diagnosis. Following day on 08/16/2018 patient was taken for a lap converted to open hemicolectomy due to lymph nodes being at the proximal ileocolic vessels. Postoperatively patient was started on a clear diet. Postop day 1 patient was passing flatus tolerated clears was advanced to a transitional diet and was ready to be DC'd home. Patient does not need any narcotic medications after surgery. Patient Problems: Active and Suspected Problems Acute appendicitis (Acute) - Physical Exam General: Alert, Oriented x3, Cooperative, No apparent distress HEENT: Atraumatic Lungs: Normal air movement Cardiovascular: Regular rate Abdomen: Soft, Distended - mild, Tender - near incisions c/d/i Extremities: No clubbing, No cyanosis, No edema Neurological: Cranial nerves II-XII grossly intact Psych/Mental Status: Normal Affect Vital Signs Temp Pulse Resp BP Pulse Ox 98.9 F 77 18 163/84 H 95 08/17/18 12:00 08/17/18 12:00 08/17/18 12:00 08/17/18 12:00 08/17/18 12:00 Oxygen Delivery Method Room Air Weight: 132 lb 9.6 oz Body Mass Index (BMI) 22.7 Intake and Output for Last 24 Hours 08/15/18 08/16/18 08/17/18 23:59 23:59 23:59 Intake Total 1359 / 1359 2843 / 2843 832 / 832 Output Total 1375 / 1375 1800 / 1800 Balance 1359 / 1359 1468 / 1468 -968 / -968 Laboratory Tests Past 24 Hrs 08/17/18 08/17/18 05:45 05:45 WBC 14.7 H RBC 4.47 Hgb 12.8 Hct 38.2 MCV 85.5 MCH 28.6 MCHC 33.5 RDW 13.2 RDW Differential 41.5 Plt Count 271 MPV 10.7 Sodium 135 L Potassium 3.9 Chloride 101 Carbon Dioxide 24.0 Anion Gap 10 BUN 4 L Creatinine 0.52 L Estim Creat Clear Calc 96.86 Est GFR (MDRD) Af Amer 152 Est GFR (MDRD) Non-Af 126 BUN/Creatinine Ratio 7.6 L Glucose 121 H Calcium 8.3 L Discharge Diet: - - Transitional diet till bnctuo-jv-2-2 weeks Discharge Activity: May not drive while taking narcotic pain medications. May shower in (days): 1 Call your doctor if your incision/area has: Continuous Slow Oozing, Sudden Increased Bleeding, Increased Pain/ Swelling, Increased Redness, Foul Smelling Discharge, Swelling at the incision site Call your doctor if you observe: Fever of 101 or Higher Remove Dressing in (days):: 1 - Abdominal binder for comfort only Home Medications: Medications to take at Discharge Alprazolam [Xanax] 0.25 mg PO BID PRN 08/13/18 Aspirin [Aspirin, Baby] 81 mg PO DAILY@0800 08/13/18 Lorazepam [Ativan] 0.5 mg PO DAILY PRN 08/13/18 Sertraline HCl [Zoloft] 25 mg PO DAILY 08/13/18 Vit D3/Folic Acid/B2/B6/B12 [Folgard Tablet] 1 each PO DAILY 08/13/18 Primary Care Physician: Stephanie Liu, WIRE SPINNER-C [Primary Care Provider] - Please Follow Up With: Vicky Melvin MD - after 5PM/weekend call [phone] When: 1-2 week call office for f/u [phone] Medical Necessity - Tobacco Use Smoking Status: Current some day smoker Tobacco Use: Cigarettes Meaningful Use Info Meaningful Use Diagnoses (Choose all that apply): None applicable
[2018-08-17] MEDS: Acetaminophen 500 MG Tablet 1000 MG PO (14:55)
[2018-08-17 15:37] VITALS: BP 156/90; PULSE 77; RESP 18; TEMP 37.2; O2SAT 95
== END 2018-08-17 16:06 | disposition home or self-care (01) | DRG 330 ==
LOC: ED 21:03 → SDC 22:27 → MS3 08-14 06:57 → ACINP 08-14 09:17 → MS3 08-14 09:17
PROVIDERS: Anesthesiology; Admitting Provider Surgery; Emergency Provider Emergency Medicine; Family Provider Nurse Practitioner; PCP Nurse Practitioner; Visit Provider Surgery
PROC: 0DTJ4ZZ Resection of Appendix, Percutaneous Endoscopic Approach (ICD-10-PCS; CPT 44970; principal; 2018-08-13 21:00)
PROC: 0DJD8ZZ Inspection of Lower Intestinal Tract, Via Natural or Artificial Opening Endoscopic (ICD-10-PCS; CPT 45378; principal; 2018-08-15 11:25)
PROC: 0DJD4ZZ Inspection of Lower Intestinal Tract, Percutaneous Endoscopic Approach (ICD-10-PCS; CPT 44205; principal; 2018-08-16 11:45)
DX: K35.80 Unspecified acute appendicitis (principal); C18.0 Malignant neoplasm of cecum; K62.1 Rectal polyp; K64.9 Unspecified hemorrhoids; K57.30 Diverticulosis of large intestine without perforation or abscess without bleeding; F17.210 Nicotine dependence, cigarettes, uncomplicated; F10.20 Alcohol dependence, uncomplicated; Y90.9 Presence of alcohol in blood, level not specified; F32.9 Major depressive disorder, single episode, unspecified; F41.9 Anxiety disorder, unspecified; Z79.82 Long term (current) use of aspirin; Z79.899 Other long term (current) drug therapy; Z53.31 Laparoscopic surgical procedure converted to open procedure
CPT/HCPCS: 36415; 71260; 74177; 80048; 80053; 80076; 81001; 82378; 83735; 85025; 85027; 88305; 88309; 88341; 88342; 93005; 97802; 99283; 99406; J7030; J7120; Q9967; A4216; J1610; J2405; J3490

== ENCOUNTER → 2018-08-13 | Outpatient (CLI) | payer BC, SELFPAY ==
--- NOTE | 2018-08-13 16:08 | CT_ITS ---
We are attempting to reach an attending provider to discuss findings. An addendum with communication details will be sent when the communication is complete. STUDY: CT ABDOMEN AND PELVIS WITH CONTRAST REASON FOR EXAM: Female, 63 years old. Right lower quadrant pain and history of breast cancer RADIATION DOSAGE (If Supplied By Facility): CTDIvol = ( 10.06 ) mGy, DLP = ( 333.03 ) mGycm TECHNIQUE: Transaxial images were obtained from the dome of the diaphragm to the symphysis pubis without oral contrast. 100 IV/Oral Isovue 300 was administered. Sagittal and coronal images were reconstructed. Individualized dose optimization techniques were used for this CT. COMPARISON: None. FINDINGS: There is a a calcified granuloma in the right lower lobe. The visualized portions of the heart are within normal limits. Bilateral breast implants. Normal liver. The gallbladder is contracted. Normal spleen. Normal pancreas. Normal bilateral adrenal glands. Normal right kidney. Normal left kidney. There is a small hiatal hernia. Normal small intestine. There is mild to moderate stool in the colon. There is diverticulosis without diverticulitis. There is a thick walled appearance of the cecum and a thick walled appearance of the appendix measuring up to 9 mm. There is surrounding inflammation. Aorta is partially calcified. Normal inferior vena cava. Normal retroperitoneum. Normal urinary bladder. Normal visualized uterus. Normal abdominal wall. Normal osseous structures. CT/Abdomen/Pelvis WITH Contrast IMPRESSION: There is a thick walled distended appearance of the appendix with surrounding inflammation compatible with acute appendicitis. There is greater than expected edema of the wall of the cecum. There is a thick walled appearance of the cecum at the opening of the appendix. This could be related to atypia versus inflammatory change. Mild constipation diverticulosis no evidence of diverticulitis. Electronically Signed: Hannah Segura MD at 19:33 EDT Tel , Service support ,
[2018-08-13 16:29] LABS: Absolute Lymphocyte Count 2.91 X10^3/ul (0.83-4.51); Absolute Neutrophil Count 6.5 X10^3/uL (2.0-7.7); Basophil# 0.05 X10^3/uL; Basophil% 0.5 % (0-1); Eosinophil# 0.21 X10^3/uL; Hematocrit 42.9 % (37-47); Hemoglobin 14.1 g/dl (12.0-15.0); Lymphocyte # 2.91 X10^3/ul (4.0); Lymphocyte % 27.4 % (19-41); Mean Corp Hgb Conc 32.9 g/gl (32-36); Mean Corpuscular Hgb 29.1 pg (27.0-32.0); Mean Corpuscular Volume 88.5 fL (81-99); Mean Platelet Vol. 10.3 fl (6.2-12.0); Monocyte# 0.93 X10^3/uL; Monocyte% 8.8 % (0-10); Neutrophil # 6.51 X10^3/uL (2.7-7.7); Neutrophil % 61.2 % (47-70); Platelet Count 257 K/mm3 (150-450); RBC Distribution Width CV 13.6 % (11.6-14.6); RBC Distribution Width SD 44.2 fl (35.1-43.9); Red Blood Count 4.85 M/mm3 (4.2-5.4); White Blood Count 10.6 K/mm3 (4.4-11.0)
[2018-08-13 16:32] LABS: POSITIVE COUNT NO; POSITIVE DIFFERENTIAL NO; POSITIVE MORPHOLOGY NO
[2018-08-13 16:42] LABS: ALB/GLOB Ratio 1.1 RATIO (0.9-2.4); AST(SGOT) 17 U/L (15-37); Alanine Aminotransfer ALT/SGPT 19 U/L (13-56); Albumin, Serum 3.9 g/dL (3.2-5.0); Alkaline Phosphatase 108 U/L (45-117); Anion Gap 8 (5-15); BUN 14 mg/dL (7-18); BUN/Creat Ratio 20.3 RATIO (10-20); Calcium,Total 9.1 mg/dL (8.5-10.1); Chloride 105 mmol/L (98-107); Creatinine, Serum 0.69 mg/dL (0.55-1.02); EST Glomerular Filtration Rate 92 mL/min (>60); Est Glom Filt Rate - Afr Amer 111 mL/min (>60); Globulin 3.5 g/dL (2.2-4.2); Glucose 99 mg/dL (74-106); Potassium 3.6 mmol/L (3.5-5.1); Protein, Total 7.4 g/dL (6.4-8.2); Sodium Level 140 mmol/L (136-145)
== END | disposition home or self-care (01) ==
PROVIDERS: Family Provider Nurse Practitioner; PCP Nurse Practitioner; Referring Provider Nurse Practitioner; Visit Provider Nurse Practitioner
DX: R10.31 Right lower quadrant pain (principal)
CPT/HCPCS: 36415; 74177; 80053; 85025; Q9967

== ENCOUNTER → 2018-09-19 16:46 | Outpatient (CLI) | payer BC, SELFPAY ==
[2018-09-19 15:33] VITALS: BMI 21.8
[2018-09-19 17:02] LABS: Absolute Lymphocyte Count 2.73 X10^3/ul (0.83-4.51); Basophil# 0.03 X10^3/uL; Basophil% 0.3 % (0-1); Eosinophil# 0.22 X10^3/uL; Eosinophils% 2.1 % (0-5); Hematocrit 41.9 % (37-47); Hemoglobin 13.9 g/dl (12.0-15.0); Lymphocyte # 2.73 X10^3/ul (4.0); Lymphocyte % 25.4 % (19-41); Mean Corp Hgb Conc 33.2 g/gl (32-36); Mean Corpuscular Volume 87.5 fL (81-99); Monocyte# 0.76 X10^3/uL; Monocyte% 7.1 % (0-10); Neutrophil # 6.96 X10^3/uL (2.7-7.7); Neutrophil % 64.8 % (47-70); POSITIVE COUNT NO; POSITIVE DIFFERENTIAL NO; POSITIVE MORPHOLOGY NO; Platelet Count 264 K/mm3 (150-450); RBC Distribution Width CV 13.4 % (11.6-14.6); RBC Distribution Width SD 42.9 fl (35.1-43.9); Red Blood Count 4.79 M/mm3 (4.2-5.4); White Blood Count 10.7 K/mm3 (4.4-11.0)
[2018-09-19 17:17] LABS: ALB/GLOB Ratio 1.1 RATIO (0.9-2.4); AST(SGOT) 30 U/L (15-37); Alanine Aminotransfer ALT/SGPT 41 U/L (13-56); Albumin, Serum 3.9 g/dL (3.2-5.0); Alkaline Phosphatase 89 U/L (45-117); Anion Gap 9 (5-15); BUN 14 mg/dL (7-18); Calcium,Total 9.3 mg/dL (8.5-10.1); Chloride 109 mmol/L (98-107); EST Glomerular Filtration Rate 90 mL/min (>60); Est Glom Filt Rate - Afr Amer 109 mL/min (>60); Globulin 3.6 g/dL (2.2-4.2); Glucose 101 mg/dL (74-106); Potassium 3.8 mmol/L (3.5-5.1); Protein, Total 7.5 g/dL (6.4-8.2); Sodium Level 143 mmol/L (136-145)
[2018-09-21 18:51] LABS: Carcinoembryonic Antigen 2.9 ng/mL (0.0-4.7)
== END ==
PROVIDERS: Family Provider Nurse Practitioner; PCP Nurse Practitioner; Referring Provider Internal Medicine Medical Oncology; Visit Provider Internal Medicine Medical Oncology
DX: C18.0 Malignant neoplasm of cecum (principal)
CPT/HCPCS: 36415; 80053; 82378; 85025

== ENCOUNTER → 2018-12-12 14:49 | Outpatient (CLI) | payer BC, SELFPAY ==
[2018-09-19 15:33] VITALS: BMI 21.8
--- NOTE | 2018-12-12 14:52 | CT_ITS ---
STUDY: CT ABDOMEN AND PELVIS WITH CONTRAST REASON FOR EXAM: Female, 63 years old. Colon cancer. RADIATION DOSAGE (If Supplied By Facility): CTDIvol = ( 9.85 ) mGy, DLP = ( 506.63 ) mGycm TECHNIQUE: Transaxial images were obtained from the dome of the diaphragm to the symphysis pubis without oral contrast. 80ml ml of Isovue 300 contrast was administered. Sagittal and coronal images were reconstructed. Individualized dose optimization techniques were used for this CT. COMPARISON: 08/13/2018. FINDINGS: There is atelectasis at the lung bases. The visualized portions of the heart and pericardium are within normal limits. There are no calcified gallstones present. The liver is within normal limits. There are no suspicious hepatic lesions. The spleen is normal in size. The pancreas is within normal limits. The adrenal glands are within normal limits. There are no renal or ureteral stones. There is no hydronephrosis. There are no focal renal lesions. Normal visualized stomach. There is no bowel obstruction or inflammation. The patient is status post right hemicolectomy. The aorta is normal in caliber. There is no abdominal or pelvic free air, free fluid, fluid collection or lymphadenopathy. There are no destructive osseous lesions. CT/Abdomen/Pelvis WITH Contrast IMPRESSION: Status post right hemicolectomy. No evidence of recurrent or metastatic disease in the abdomen or pelvis. Electronically Signed: Silver Yost, at 18:18 EDT Tel , Service support ,
[2018-12-12 15:00] LABS: CREATININE FINGERSTICK 0.9 mg/dL (0.55-1.02); EGFR FINGERSTICK > 60.0000 mL/min (>60)
== END ==
PROVIDERS: Family Provider Nurse Practitioner; PCP Nurse Practitioner; Referring Provider Internal Medicine Medical Oncology; Visit Provider Internal Medicine Medical Oncology
DX: C18.0 Malignant neoplasm of cecum (principal)
CPT/HCPCS: 74177; Q9967

== ENCOUNTER 2019-08-08 07:01 | Day surgery (SDC) | payer BC, SELFPAY ==
--- NOTE | 2019-07-31 03:06 | HP_ITS ---
Intake Vital Signs 07/31/19 BMI 23.1 07/31/19 Height 5 ft 3.5 in 07/31/19 Weight: 130 lb 07/31/19 BMI 22.6 07/31/19 BP 143/83 H 07/31/19 Blood Pressure Location Rt brachial 07/31/19 Position Sitting 07/31/19 Respiration 16 Intake Visit Reasons: Yearly f/u C-Scope Chief Complaint: F/u for Colon cancer. Burial Vault Setter Required: No Is patient in pain?: No Allergies No Known Allergies Allergy (Verified 07/31/19 14:46) Medications Alprazolam [Xanax] 0.25 mg PO BID PRN 08/13/18 [History Confirmed 07/31/19] Lorazepam [Ativan] 0.5 mg PO DAILY PRN 08/13/18 [History Confirmed 07/31/19] PFSH Medical History Acute appendicitis (Acute) Surgical History History of (Acute) History of bilateral mastectomy (Acute) History of surgery on right wrist (Acute) History of tonsillectomy (Acute) History of tubal ligation (Acute) history surgery right elbow (Acute) s/p laparoscopic right hemicolectomy (Acute ~08/16/18) Family History Father Hypertension Grandfather CVA (cerebral vascular accident) Social History (Updated 07/31/19 @ 15:[address] Vicky Melvin MD) Smoking Status: Former smoker HPI HPI HPI: CAPRI RAVI, is a 64 F who presents to the office today for HPI HPI Surgical H&P: Yes HPI: CAPRI RAVI, is a 64 F who presents to the office today for follow- up status post right hemicolectomy due to colon cancer. Patient surgery was on 08/16/2018, 0 out of 15 positive nodes. Patient is due for her 1 year follow-up colonoscopy. Patient states since surgery she has been having loose bowel movements states that last month she did have 1 normal 1. Complains of bloating specially in the epigastric area patient is never had a previous EGD her last colonoscopy was a year ago. Patient denies any blood in her stool. Patient also has been having a lot of stress recently, her son was just diagnosed with throat cancer. ROS General General: Yes weight change and colon cancer; no fatigue Gastro Gastrointestinal: No abdominal pain, No nausea or vomiting, Yes diarrhea (Loose stools), No blood in stool Additional Details: Complains of bloating Exam Const General: cooperative, no acute distress, well developed, well groomed Resp Effort & Inspection: normal respiratory effort Cardio Rate: regular rate GI Inspection: non-distended, incision (Well-healed) Palpation: soft, no hernias, nontender Neuro General: CN's II-XI intact bilaterally Extrem General: no clubbing, cyanosis or edema Psych Mood: anxious mood Assessment & Plan Problems 1. Malignant neoplasm of ascending colon C18.2 2. S/P right colectomy Z90.49 3. Bloating symptom R14.0 4. Loose stools R19.5 Plan I have discussed the above with the patient. I have offered the patient EGD and colonoscopy for evaluation. I have explained the risks/benefits of the procedure and described the procedure. I have discussed the risks with the patient, including but not limited to: infection, bleeding, perforation of the GI tract requiring emergency surgery, inability to complete the procedure, injury to any internal organs, complications of anesthesia, etc. - the patient understands and agrees to proceed. I have answered all the patient's questions to the patient's satisfaction and the patient has no further questions. The patient has been given instructions for the colon cleansing preparation. One day of clears MiraLAX Dulcolax split prep Vicky Melvin M.D. Pager: [phone] [facility] [address] [place] [address], [address] [place] [address] Office: [phone] Orders Orders: Colonoscopy Today EGD Today Plan Detail Follow Up We will schedule EGD and colonoscopy Coding Level of Care Code Off vis,est,level 3 Diagnoses Malignant neoplasm of ascending colon C18.2 ??Colon location: ascending S/P right colectomy Z90.49 Bloating symptom R14.0 Loose stools R19.5 07/31/19 8601 <Electronically signed by Vicky Espino am, MD> Date _ Vicky Melvin MD I have re-examined the patient. There are no clinical changes since date of exam. Procedure: Elective We discussed the current risks associated with COVID-19. While it is understood that there is a community spread of COVID-19, the risk of cam COVID-19 while at [facility] ([facility]) is very low; however, the risk cannot be completely mitigated because of the community spread of the disease. We discussed in detail the risk of exposure to and/or potential harm posed by the COVID-19 virus with having a surgery/procedure at this time versus the risk of delaying the surgery/procedure. It is not possible to know either the risk of delaying the surgery or procedure or chance of getting an infection with perfect accuracy, but a joint decision was made to proceed at this time with the scheduled surgery/procedure as indicated on the consent form. Patient was notified that we will need to comply with any screening or testing [facility] wishes to perform or that surgery may be delayed for any positive results.
[2019-07-31 14:46] VITALS: BMI 23.1
[2019-08-08] VITALS (7 sets, daily range): BP systolic 104–142; BP diastolic 71–81; PULSE 63–81; RESP 14–18; TEMP 36.1–37.3; O2SAT 99–100; BMI 22.1
--- NOTE | 2019-08-08 | GASB_PTH ---
PATIENT: CAPRI HERNANDEZ LOC: EN U#:[id number] AGE/SX: 64/F ROOM: RE08/08/[address]: Dr. Vicky Melvin MD : 1955 BED: DIS: 08/08/2019 SPEC #: [id number] RECD: 08/08/19 10:51 STATUS: TERESA RETyra #: [id number] KINSEY: 08/08/19 00:[address]: Vicky Melvin DEPT: SURGICAL PATHOLOGY RECD BY: Vern Catherine ENTERED: 08/08/19 10:52 SP TYPE: Gastric Bx OTHR DR: Stephanie Liu, CONTINUOUS MINING MACHINE COAL MINER-C Tissues: A - Gastric mucous membrane B - Gastric mucous membrane C - Gastric mucous membrane D - Transverse colon E - Descending colon F - Sigmoid colon biopsy Procedures: Special Stain Group II Surgery Specimen Level IV Alcian Blue/PAS (control) HEADER OPERATION: Colonoscopy, EGD ([facility]) PRE-OP DIAGNOSIS: Colon CA, bloating TISSUE SUBMITTED: A - Antrum biopsy for histo and H. pylori, B - Gastric body biopsy, C - GE junction biopsy, D - Random biopsy transverse colon, E - Descending colon random biopsy, F - Sigmoid colon random biopsy MICROSCOPIC DIAGNOSIS A. Antrum, biopsy: Mild gastritis. See microscopic description and comment. B. Gastric body, biopsy: A fragment of gastric mucosa with minimal chronic inflammation. C. GE junction, biopsy: Fragments of gastric mucosa with mild chronic inflammation. Intestinal metaplasia (goblet cell metaplasia) is not identified. See comment. D. Transverse colon, random biopsy: A fragment of colonic mucosa, no pathologic diagnosis. E. Descending colon, random biopsy: A fragment of colonic mucosa, no pathologic diagnosis. F. Sigmoid colon, biopsy: Fragments of colonic mucosa, no pathologic diagnosis. SJ:ashley 08/09/19 COMMENT A. The results of immunohistochemistry for Helicobacter pylori will be reported separately ([id number]). C. Alcian blue/PAS stain with matched control is used in the evaluation of the specimen. Please make reference to previous specimen ([id number]) right colon, colectomy with diagnosis of invasive moderately differentiated adenocarcinoma. MICROSCOPIC DESCRIPTION Slides are reviewed. A. The specimen shows fragments of gastric mucosa with chronic inflammatory cell infiltrates in the lamina propria consisting of lymphocytes and plasma cells, consistent with mild chronic gastritis. GROSS DESCRIPTION A - Received in fixative is one container labeled with the patient's name and designated antrum biopsy. The specimen consists of one irregular fragment of light ly soft tissue that measures 0.3 x 0.3 x 0.1 cm. The specimen is totally submitted in one cassette. B - Received in fixative is one container labeled with the patient's name and designated gastric body biopsy. The specimen consists of one irregular fragment of light ly soft tissue that measures 0.4 x 0.3 x 0.1 cm. The specimen is totally submitted in one cassette. C - Received in fixative is one container labeled with the patient's name and designated GE junction biopsy. The specimen consists of two irregular fragments of light ly soft tissue that in aggregate measure 0.6 x 0.3 x 0.1 cm. The specimen is totally submitted in one cassette. D - Received in fixative is one container labeled with the patient's name and designated random biopsy transverse colon. The specimen consists of one irregular fragment of light ly soft tissue that measures 0.5 x 0.3 x 0.1 cm. The specimen is totally submitted in one cassette. E - Received in fixative is one container labeled with the patient's name and designated descending colon random biopsy. The specimen consists of one irregular fragment of light ly soft tissue that measures 0.6 x 0.5 x 0.1 cm. The specimen is totally submitted in one cassette. F - Received in fixative is one container labeled with the patient's name and designated sigmoid colon biopsy. The specimen consists of two irregular fragments of light ly soft tissue that in aggregate measure 0.5 x 0.2 x 0.1 cm. The specimen is totally submitted in one cassette. / SJ:rg 08/08/19 TC:3 CPT: 74041 x6, 48412
[2019-08-08] MEDS: Lactated Ringers 1,000 ML 100 ML IV (07:32)
--- NOTE | 2019-08-08 08:00 | IMM_PTH ---
PATIENT: CAPRI HERNANDEZ LOC: EN U#:[id number] AGE/SX: 64/F ROOM: RE08/08/[address]: Dr. Vicky Melvin MD : 1955 BED: DIS: 08/08/2019 SPEC #: [id number] RECD: 08/08/19 11:41 STATUS: SOUT REQ #: [id number] KINSEY: 08/08/19 08:[address]: Vicky Melvin DEPT: IMMUNOHISTOCHEMISTRY RECD BY: Khadijah Mccloud ENTERED: 08/08/19 11:41 SP TYPE: IMMUNO OTHR DR: Stephanie Liu, PRIVACY MANAGER-C Tissues: A - Stomach, NOS Procedures: H Pylori (initial) PHYSICIAN & INSTITUTION [place] [address] SPECIMEN INFORMATION: Tissue Source: A - Antrum biopsy Clinical Info: Colon CA, bloating Specimen Number: [id number] CPT code: 99139 METHODOLOGY: Deparaffinized sections of prefer/formalin-fixed tissue or PAP/DQ stained slides are incubated with monoclonal/polyclonal antibodies/oligonucleotide probes. Localization is made via biotin free immunoperoxidase method. Appropriate controls are performed and reacted as expected. Results on target cell population are indicated in the following table: RESULTS: ANTIBODY / CLONE RESULT Block A H Pylori (polyclonal) negative These tests were developed and their performance characteristics determined by [facility]. They may not have been cleared or approved by the U.S. Food and Drug Administration. The FDA has determined that such clearance or approval is not necessary. INTERPRETATION: A. Antrum biopsy: Negative for Helicobacter pylori organisms. EDUARDO:ashley 08/12/19
--- NOTE | 2019-08-08 16:57 | OP.EGD_ITS ---
Patient Name: Tierra Arellano Procedure Date: 08/08/2019 7:58 AM Date of : 1955 Age: 64 Procedure: Upper GI endoscopy Indications: Epigastric abdominal pain, Abdominal bloating, Diarrhea Providers: Vicky Melvin MD Medicines: Monitored Anesthesia Care Patient Profile: This is a 64 year old female. Complications: No immediate complications. Procedure: Pre-Anesthesia Assessment: - Prior to the procedure, a History and Physical was performed, and patient medications and allergies were reviewed. The patient's tolerance of previous anesthesia was also reviewed. The risks and benefits of the procedure and the sedation options and risks were discussed with the patient. All questions were answered, and informed consent was obtained. Prior Anticoagulants: The patient has taken no previous anticoagulant or antiplatelet agents. ASA Grade Assessment: Per anesthesia. After reviewing the risks and benefits, the patient was deemed in satisfactory condition to undergo the procedure. After obtaining informed consent, the endoscope was passed under direct vision. Throughout the procedure, the patient's blood pressure, pulse, and oxygen saturations were monitored continuously. The gastroscope was introduced through the mouth, and advanced to the second part of duodenum. The upper GI endoscopy was accomplished without difficulty. The patient tolerated the procedure well. Scope In: 8:07:30 AM Scope Out: 8:14:22 AM Total Procedure Duration Time 0 hours 6 minutes 52 seconds Findings: The Z-line was variable and was found 40 cm from the incisors. Biopsies were taken with a cold forceps for histology. Striped moderately erythematous mucosa without bleeding was found in the gastric antrum. Biopsies were taken with a cold forceps for histology. Biopsies were taken with a cold forceps for Helicobacter pylori cultures. Localized mild inflammation characterized by granularity was found in the gastric body. Biopsies were taken with a cold forceps for histology. The cardia and gastric fundus were normal on retroflexion. The exam of the esophagus was otherwise normal. The examined duodenum was normal. Impression: - Z-line variable, 40 cm from the incisors. Biopsied. - Erythematous mucosa in the antrum. Biopsied. - Gastritis. Biopsied. - Normal examined duodenum. Recommendation: - Await pathology results. - Discharge patient to home. - Resume previous diet. - Use Protonix (pantoprazole) 40 mg PO daily. - Use Pepcid (famotidine) 20 mg PO daily for 3 days. - Continue present medications. Procedure Code(s): --- Professional --- 47108, Esophagogastroduodenoscopy, flexible, transoral; with biopsy, single or multiple Diagnosis Code(s): --- Professional --- K22.8, Other specified diseases of esophagus K31.89, Other diseases of stomach and duodenum K29.70, Gastritis, unspecified, without bleeding R10.13, Epigastric pain R14.0, Abdominal distension (gaseous) R19.7, Diarrhea, unspecified CPT copyright 2017 [employer]. All rights reserved. The codes documented in this report are preliminary and upon beveler review may be revised to meet current compliance requirements. MD Vicky Whittington MD 08/08/2019 8:44:58 AM This report has been signed electronically. Number of Addenda: 0 Note Initiated On: 08/08/2019 7:58 AM
--- NOTE | 2019-08-08 16:57 | OP.CCLET_ITS ---
08/08/2019 Stephanie Liu, NIKOLAI [address] [place] [address] Re : Upper GI endoscopy procedure for Tierra Arellano Dear Ms. Liu This procedure was performed on July. My impressions and recommendations are as follows: Impressions : - Z-line variable, 40 cm from the incisors. Biopsied. - Erythematous mucosa in the antrum. Biopsied. - Gastritis. Biopsied. - Normal examined duodenum. Recommendations : - Await pathology results. - Discharge patient to home. - Resume previous diet. - Use Protonix (pantoprazole) 40 mg PO daily. - Use Pepcid (famotidine) 20 mg PO daily for 3 days. - Continue present medications. My findings are described in the full procedure note, which is enclosed. If I can be of further assistance, please feel free to contact me at Doctor phone number(s): , Work: . Sincerely, MD Vicky Whittington MD 08/08/2019 8:44:58 AM This report has been signed electronically.
--- NOTE | 2019-08-08 16:58 | OP.CCLET_ITS ---
08/08/2019 Stephanie Liu NP [address] [place] [address] Re : Colonoscopy procedure for Tierra Arellano Dear Ms. Liu This procedure was performed on July. My impressions and recommendations are as follows: Impressions : - Hemorrhoids found on perianal exam. - External and internal hemorrhoids. - Diverticulosis in the sigmoid colon, in the descending colon and in the transverse colon. - The examination was otherwise normal. - Three random biopsies were obtained in the sigmoid colon, in the descending colon and in the transverse colon. Recommendations : - Discharge patient to home. - High fiber diet. - Repeat colonoscopy in 3 years for surveillance. - Continue present medications. My findings are described in the full procedure note, which is enclosed. If I can be of further assistance, please feel free to contact me at Doctor phone number(s): , Work: . Sincerely, MD Vicky Whittington MD 08/08/2019 8:56:15 AM This report has been signed electronically.
--- NOTE | 2019-08-08 16:58 | OP.COLON_ITS ---
Patient Name: Tierra Arellano Procedure Date: 08/08/2019 8:14 AM Date of : 1955 Age: 64 Procedure: Colonoscopy Indications: Follow-up of colon cancer Providers: Vicky Melvin MD Medicines: Monitored Anesthesia Care Patient Profile: This is a 64 year old female. Last Colonoscopy: 1 year ago. Complications: No immediate complications. Procedure: Pre-Anesthesia Assessment: - Prior to the procedure, a History and Physical was performed, and patient medications and allergies were reviewed. The patient's tolerance of previous anesthesia was also reviewed. The risks and benefits of the procedure and the sedation options and risks were discussed with the patient. All questions were answered, and informed consent was obtained. Prior Anticoagulants: The patient has taken no previous anticoagulant or antiplatelet agents. ASA Grade Assessment: Per anesthesia. After reviewing the risks and benefits, the patient was deemed in satisfactory condition to undergo the procedure. After I obtained informed consent, the scope was passed under direct vision. Throughout the procedure, the patient's blood pressure, pulse, and oxygen saturations were monitored continuously. The colonoscope was introduced through the anus and advanced to the ileocolonic anastomosis. The colonoscopy was somewhat difficult due to a redundant colon. Successful completion of the procedure was aided by using scope torsion. The patient tolerated the procedure well. The quality of the bowel preparation was good. Scope In: 8:17:31 AM Scope Withdrawal Time 0 hours 7 minutes 0 seconds Scope Out: 8:32:41 AM Total Procedure Duration Time 0 hours 15 minutes 10 seconds Findings: Hemorrhoids were found on perianal exam. External and internal hemorrhoids were found. The hemorrhoids were Grade I (internal hemorrhoids that do not prolapse). Multiple small-mouthed diverticula were found in the sigmoid colon, descending colon and transverse colon. Ileocolonic anastomosis widely patent. The exam was otherwise without abnormality. Three random biopsies were obtained with cold forceps for histology in 3 sections in the sigmoid colon, in the descending colon and in the transverse colon. Impression: - Hemorrhoids found on perianal exam. - External and internal hemorrhoids. - Diverticulosis in the sigmoid colon, in the descending colon and in the transverse colon. - The examination was otherwise normal. - Three random biopsies were obtained in the sigmoid colon, in the descending colon and in the transverse colon. Recommendation: - Discharge patient to home. - High fiber diet. - Repeat colonoscopy in 3 years for surveillance. - Continue present medications. Procedure Code(s): --- Professional --- 37746, PT, Colonoscopy, flexible; with biopsy, single or multiple Diagnosis Code(s): --- Professional --- K64.0, First degree hemorrhoids C18.9, Malignant neoplasm of colon, unspecified K57.30, Diverticulosis of large intestine without perforation or abscess without bleeding CPT copyright 2017 [employer]. All rights reserved. The codes documented in this report are preliminary and upon equipment services associate review may be revised to meet current compliance requirements. MD Vicky Whittington MD 08/08/2019 8:56:15 AM This report has been signed electronically. Number of Addenda: 0 Note Initiated On: 08/08/2019 8:14 AM
== END 2019-08-08 09:15 | disposition home or self-care (01) ==
LOC: EN 07:03 → AC 07:03
PROVIDERS: PCP Nurse Practitioner; Referring Provider Nurse Practitioner; Visit Provider Surgery
PROC: 0DJD8ZZ Inspection of Lower Intestinal Tract, Via Natural or Artificial Opening Endoscopic (ICD-10-PCS; CPT 45378; principal; 2019-08-08 07:55)
DX: K22.8 Other specified diseases of esophagus (principal); K29.70 Gastritis, unspecified, without bleeding; K31.89 Other diseases of stomach and duodenum; K64.4 Residual hemorrhoidal skin tags; K64.0 First degree hemorrhoids; K57.30 Diverticulosis of large intestine without perforation or abscess without bleeding; K21.9 Gastro-esophageal reflux disease without esophagitis; C18.2 Malignant neoplasm of ascending colon; R10.13 Epigastric pain; R14.0 Abdominal distension (gaseous); R19.7 Diarrhea, unspecified; Z90.49 Acquired absence of other specified parts of digestive tract; Z87.891 Personal history of nicotine dependence; Z79.82 Long term (current) use of aspirin; Z11.59 Encounter for screening for other viral diseases
CPT/HCPCS: 43239; 45380; 87635; 88305; 88313; 88342; G2023; J7120; U0004

== ENCOUNTER → 2019-10-24 11:25 | Outpatient (CLI) | payer BC, SELFPAY ==
[2019-08-08 07:18] VITALS: BMI 22.1
[2019-10-29 20:53] LABS: HPV Reflexed? NOT INDICATED
== END ==
PROVIDERS: PCP Nurse Practitioner; Visit Provider Obstetrics & Gynecology
DX: Z12.4 Encounter for screening for malignant neoplasm of cervix (principal)
CPT/HCPCS: 88175; G0145

== ENCOUNTER → 2019-12-25 14:49 | Outpatient (CLI) | payer BC, SELFPAY ==
[2019-08-08 07:18] VITALS: BMI 22.1
--- NOTE | 2019-12-25 14:50 | CT_ITS ---
STUDY: CT ABDOMEN AND PELVIS WITH CONTRAST REASON FOR EXAM: Female, 64 years old. F/U COLON CANCER, ELEVATED PANCREAS LABS RADIATION DOSAGE (If Supplied By Facility): CTDIvol = ( 11.375 ) mGy, DLP = ( 462.46 ) mGycm TECHNIQUE: Transaxial images were obtained from the dome of the diaphragm to the symphysis pubis with oral contrast. Oral and amp; IV Readi-CAT and amp; 100mL Isovue-370 was administered. Sagittal and coronal images were reconstructed. Individualized dose optimization techniques were used for this CT. COMPARISON: Comparison is made with prior examination dated 12/12/2018. FINDINGS: Left breast prosthesis. Minimal degree of increased linear markings at the lung bases suggestive of atelectasis. The visualized portions of the heart are within normal limits. Normal liver. The gallbladder is contracted. Normal spleen. Normal pancreas. Normal bilateral adrenal glands. Normal right kidney. Normal left kidney. Normal visualized stomach. Normal small intestine. Once again, the patient is status post right hemicolectomy. There are multiple colonic diverticula consistent with diverticulosis. The appendix is visualized and appears normal. There is scattered atherosclerotic calcification of the abdominal aorta, without a demonstrated aneurysm. Normal inferior vena cava. Normal retroperitoneum. Normal urinary bladder. There is a small umbilical hernia containing fat. Normal osseous structures. CT/Abdomen/Pelvis WITH Contrast IMPRESSION: Status post right hemicolectomy. Mild degree of linear atelectasis at the lung bases. Stable examination. Electronically Signed: Dav Kent, at 10:27 EDT , Service support ,
[2019-12-25 15:15] LABS: CREATININE FINGERSTICK < 0.6 mg/dL (0.55-1.02)
== END ==
LOC: CT 06-27 01:31
PROVIDERS: PCP Nurse Practitioner; Referring Provider Internal Medicine Medical Oncology; Visit Provider Internal Medicine Medical Oncology
DX: C18.9 Malignant neoplasm of colon, unspecified (principal)
CPT/HCPCS: 74177; Q9967

== ENCOUNTER → 2020-02-21 09:51 | Outpatient (CLI) | payer BC, SELFPAY ==
[2020-02-21 09:05] VITALS: BMI 22.8
[2020-02-21 12:17] LABS: Free T3 3.4 pg/mL (2.18-3.98); T4 Free Direct 0.81 ng/dL (0.76-1.46); Thyroid Stim Hormone (TSH) 0.13 uIU/mL (0.358-3.74)
[2020-02-22 12:47] LABS: Thyroid Peroxidase AB < 9 IU/mL (0-34)
== END ==
PROVIDERS: PCP Nurse Practitioner; Referring Provider Internal Medicine Endocrinology, Diabetes & Metabolism; Visit Provider Internal Medicine Endocrinology, Diabetes & Metabolism
DX: E05.20 Thyrotoxicosis with toxic multinodular goiter without thyrotoxic crisis or storm (principal)
CPT/HCPCS: 36415; 84439; 84443; 84481; 86376

== ENCOUNTER → 2020-03-03 09:51 | Outpatient (CLI) | payer BC, SELFPAY ==
[2020-02-21 09:05] VITALS: BMI 22.8
--- NOTE | 2020-03-03 09:53 | US_ITS ---
STUDY: THYROID ULTRASOUND REASON FOR EXAM: Female, 65 years old. Nodules for follow-up. TECHNIQUE: Ultrasound evaluation of the thyroid was performed with real-time and static flores-scale imaging. COMPARISON: August 23, 2012. FINDINGS: RIGHT LOBE: The right lobe of the thyroid gland measures 4.0 x 2.1 x 2.0 cm. There is a homogeneous echotexture. Midpole solid hypoechoic nodule measuring 2.7 x 1.9 x 1.5 cm not significantly changed. LEFT LOBE: The left lobe of the thyroid gland measures 3.8 x 1.5 x 0.8 cm. There is a homogeneous echotexture. Multiple solid hypoechoic nodules in the upper pole measuring 0.5 x 0.5 x 0.3 cm, 0.4 x 0.2 x 0.2 cm and lower pole measuring 0.4 x 0.3 x 0.2 cm. ISTHMUS: The isthmus measures 3 mm . The regional lymph nodes are normal. US/Thyroid IMPRESSION: The thyroid gland is now normal in size. Dominant solid nodule midpole right lobe not significantly changed. There are now new subcentimeter solid nodules in the left lobe. Electronically Signed: Liu Tavarez MD at 6:48 EST , Service support ,
== END ==
PROVIDERS: PCP Nurse Practitioner; Referring Provider Internal Medicine Endocrinology, Diabetes & Metabolism; Visit Provider Internal Medicine Endocrinology, Diabetes & Metabolism
DX: E05.20 Thyrotoxicosis with toxic multinodular goiter without thyrotoxic crisis or storm (principal)
CPT/HCPCS: 76536

== ENCOUNTER → 2020-11-12 16:12 | Outpatient (CLI) | payer MEDICAID, SELFPAY ==
[2020-11-12 17:01] LABS: Absolute Lymphocyte Count 2.61 X10^3/uL (0.83-4.51); Absolute Neutrophil Count 6.2 X10^3/uL (2.0-7.7); Basophil# 0.05 X10^3/uL; Basophil% 0.5 % (0-1); Eosinophil# 0.13 X10^3/uL; Eosinophils% 1.3 % (0-5); Hemoglobin 14.4 g/dL (12.0-15.0); Lymphocyte # 2.61 X10^3/ul (0.83-4.51); Mean Corp Hgb Conc 32.7 g/dL (32-36); Mean Corpuscular Hgb 29.1 pg (27.0-32.0); Mean Corpuscular Volume 89.1 fL (81-99); Mean Platelet Vol. 10.5 fl (6.2-12.0); Monocyte% 7.2 % (0-10); NRBC Flagged by Analyzer 0 % (0-5); Neutrophil # 6.15 X10^3/uL (2.7-7.7); Neutrophil % 63.8 % (47-70); Platelet Count 259 K/mm3 (150-450); RBC Distribution Width SD 42.6 fl (35.1-43.9); Red Blood Count 4.94 M/mm3 (4.2-5.4); White Blood Count 9.7 K/mm3 (4.4-11.0)
[2020-11-12 17:39] LABS: AST(SGOT) 23 U/L (15-37); Alanine Aminotransfer ALT/SGPT 39 U/L (13-56); Alkaline Phosphatase 96 U/L (45-117); Anion Gap 5 (5-15); BUN 9 mg/dL (7-18); BUN/Creat Ratio 15.3 RATIO (10-20); Calcium,Total 9.3 mg/dL (8.5-10.1); Chloride 110 mmol/L (98-107); Cholesterol 228 mg/dL (200); Creatinine, Serum 0.59 mg/dL (0.55-1.02); EST Glomerular Filtration Rate 110 mL/min (>60); Est Glom Filt Rate - Afr Amer 133 mL/min (>60); Globulin 3.9 g/dL (2.2-4.2); Glucose 93 mg/dL (74-106); High Density Lipoprotein 102 mg/dL; Potassium 4.1 mmol/L (3.5-5.1); Protein, Total 7.9 g/dL (6.4-8.2); Sodium Level 142 mmol/L (136-145); T4 Free Direct 0.72 ng/dL (0.76-1.46); Thyroid Stim Hormone (TSH) 0.21 uIU/mL (0.358-3.74); Triglycerides 111 mg/dL; Very Low Density Lipoprotein 22 mg/dL (5-40)
== END ==
PROVIDERS: PCP Internal Medicine; Referring Provider Internal Medicine; Visit Provider Internal Medicine
DX: I10 Essential (primary) hypertension (principal); E05.90 Thyrotoxicosis, unspecified without thyrotoxic crisis or storm
CPT/HCPCS: 36415; 80053; 80061; 84439; 84443; 85025

== ENCOUNTER → 2020-11-18 11:19 | Outpatient (CLI) | payer MEDICAID, SELFPAY ==
--- NOTE | 2020-11-18 11:24 | EKG12_ITS ---
Test Reason : PRE OP Blood Pressure : / mmHG Vent. Rate : 065 BPM Atrial Rate : 065 BPM P-R Int : 148 ms QRS Dur : 130 ms QT Int : 420 ms P-R-T Axes : 000 095 044 degrees QTc Int : 436 ms Normal sinus rhythm Right bundle branch block Abnormal ECG Confirmed by OSEAS MEDEROS, SEBASTIAN ([id number]), index editor TOMAS LAU ([id number]) on 11/19/2020 9:03:58 AM Referred By: Sven Dutton Confirmed By:SEBASTIAN FAROOQ MD
== END ==
PROVIDERS: PCP Internal Medicine; Referring Provider Internal Medicine; Visit Provider Internal Medicine
DX: I10 Essential (primary) hypertension (principal)
CPT/HCPCS: 93005

== ENCOUNTER → 2021-01-26 09:06 | Outpatient (CLI) | payer MEDICAID, SELFPAY ==
[2021-01-26 13:15] LABS: Vitamin D,25 Hydroxy 30.9 ng/mL
[2021-01-26 13:24] LABS: Free T3 3.3 pg/mL (2.18-3.98); T4 Free Direct 0.79 ng/dL (0.76-1.46); Thyroid Stim Hormone (TSH) 0.19 uIU/mL (0.358-3.74)
== END ==
PROVIDERS: PCP Internal Medicine; Referring Provider Internal Medicine Endocrinology, Diabetes & Metabolism; Visit Provider Internal Medicine Endocrinology, Diabetes & Metabolism
DX: E04.2 Nontoxic multinodular goiter (principal); E55.9 Vitamin D deficiency, unspecified
CPT/HCPCS: 36415; 82306; 84439; 84443; 84481

== ENCOUNTER → 2021-08-24 | Outpatient (CLI) | payer MEDICARE, MEDICAID, SELFPAY ==
[2021-08-24 13:09] LABS: Free T3 3.4 pg/mL (2.18-3.98); T4 Free Direct 0.79 ng/dL (0.76-1.46); Thyroid Stim Hormone (TSH) 0.22 uIU/mL (0.358-3.74)
[2021-08-24 13:14] LABS: Vitamin D,25 Hydroxy 37.6 ng/mL
== END | disposition home or self-care (01) ==
LOC: BIMLAB 09:01
PROVIDERS: PCP Internal Medicine; Referring Provider Internal Medicine Endocrinology, Diabetes & Metabolism; Visit Provider Internal Medicine Endocrinology, Diabetes & Metabolism
DX: E04.2 Nontoxic multinodular goiter (principal); F41.9 Anxiety disorder, unspecified; E55.9 Vitamin D deficiency, unspecified
CPT/HCPCS: 36415; 82306; 84439; 84443; 84481

== ENCOUNTER → 2021-08-27 | Outpatient (CLI) | payer MEDICARE, MEDICAID, SELFPAY ==
--- NOTE | 2021-08-27 12:54 | US_ITS ---
STUDY: THYROID ULTRASOUND REASON FOR EXAM: Female, 66 years old. compare right nodule TECHNIQUE: Ultrasound evaluation of the thyroid was performed with real-time and static flores-scale imaging. COMPARISON: Mar 03 2020 10:02am FINDINGS: RIGHT LOBE: The right lobe of the thyroid gland measures 4.4 x 2.2 cm. There is a homogeneous echotexture. There is a nodule. This measures 27 x 19 x 18 mm. The lesion is solid with regular margins and intra-nodular doppler flow. LEFT LOBE: The left lobe of the thyroid gland measures 4.7 x 1.7 cm. There is a homogeneous echotexture. 3 total nodules. Nodule measures 6 x 8 x 4 mm. Nodule 2 measures 4 x 3 x 2 mm. ISTHMUS: The isthmus measures 2 mm. US/Thyroid IMPRESSION: There is a slightly larger RIGHT nodule. 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 This nodule is solid or almost completely solid, hyperechoic or isoechoic, [id number], smoothly marginated, contains microcalcifications, is peripherally calcified and contains punctate echogenic foci. TI-RADS points: 9. TI-RADS category: TR5. This nodule is highly suspicious. Recommend FNA evaluation. There are left nodules. This nodule is solid or almost completely solid, hypoechoic, [id number], smoothly marginated and contains no echogenic foci. TI-RADS points: 4. TI-RADS category: TR4. This nodule is moderately suspicious but no FNA or follow-up is necessary given the small size of this nodule. Electronically Signed: Antoni Knight MD at 19:19 EDT ,
== END | disposition home or self-care (01) ==
PROVIDERS: PCP Nurse Practitioner; Referring Provider Internal Medicine Endocrinology, Diabetes & Metabolism; Visit Provider Internal Medicine Endocrinology, Diabetes & Metabolism
DX: E04.2 Nontoxic multinodular goiter (principal)
CPT/HCPCS: 76536

== ENCOUNTER → 2021-09-09 | Outpatient (CLI) | payer MEDICARE, MEDICAID, SELFPAY ==
--- NOTE | 2021-09-09 10:10 | ASPSI_PTH ---
PATIENT: CAPRI HERNANDEZ LOC: [facility] U#:[id number] AGE/SX: 66/F ROOM: RE09/09/[address]: Dr. Mark Gipson MD : 1955 BED: DIS: 09/09/2021 SPEC #: [id number] RECD: 09/09/21 11:21 STATUS: TERESA RETyra #: [id number] KINSEY: 09/09/21 10:[address]: Mark Gipson DEPT: CYTOLOGY RECD BY: Sybil Martinez ENTERED: 09/09/21 12:03 SP TYPE: ASP SYEDA GARCÍA DR: Roberta Monteiro, DEBARKER OPERATOR-C Tissues: A - Thyroid gland, NOS B - Thyroid gland, NOS Procedures: Special Stain Group II Surgery Specimen Level IV Cytospin Fluid Cytology Other HEADER OPERATION: Right thyroid fine needle aspiration PRE-OP DIAGNOSIS: Thyroid nodules TISSUE SUBMITTED: A ? Right thyroid nodule fluid, B - Right thyroid nodule x4 slides DIAGNOSIS CYTOLOGY A. Fine needle aspiration, right thyroid nodule fluid (cytospin and cell block): Negative for malignant cells. See comment. B. Fine needle aspiration, right thyroid nodule (smears): Consistent with benign follicular nodule ([place] category II). See comment. AM:ashley 09/10/2021 COMMENT A. The specimen contains rare benign follicular cells. Clinical correlation is suggested. B. The paucity of follicular cells precludes further evaluation. The specimen is bloody. Clinical correlation is suggested. CYTOLOGY STUDY Slides are reviewed. CYTOLOGY GROSS A - Received is 30 ml of red fluid with particles labeled with the patient's name and and designated per the requisition as right thyroid nodule. Submitted for cytology preparation including cell block. B - Received are four smears labeled with the patient's name and designated per the requisition as right thyroid nodule. Submitted for staining. / ashley 09/09/2021 TC:5 CPT: 80549 x2, 62878
== END | disposition home or self-care (01) ==
LOC: LABSPEC 11:31
PROVIDERS: PCP Nurse Practitioner Family; Visit Provider Surgery
DX: E04.1 Nontoxic single thyroid nodule (principal)
CPT/HCPCS: 88108; 88161; 88305; 88313

== ENCOUNTER 2021-10-13 06:15 | Day surgery (SDC) | payer MEDICARE, MEDICAID, SELFPAY ==
--- NOTE | 2021-10-11 08:14 | EKG12_ITS ---
Test Reason : PREOP Blood Pressure : / mmHG Vent. Rate : 082 BPM Atrial Rate : 082 BPM P-R Int : 136 ms QRS Dur : 134 ms QT Int : 396 ms P-R-T Axes : 000 086 163 degrees QTc Int : 462 ms Normal sinus rhythm Right bundle branch block T wave abnormality, consider inferior ischemia Abnormal ECG Confirmed by SEJAL MEDEROS, RADHA ([id number]), news videotape editor TOMAS LAU ([id number]) on 10/11/2021 2:08:54 PM Referred By: FRANSISCA Confirmed By:RDAHA POST MD
[2021-10-13] VITALS (7 sets, daily range): BP systolic 126–136; BP diastolic 68–81; PULSE 84–96; RESP 16–18; TEMP 36.5–36.9; O2SAT 92–98; BMI 22.6
--- NOTE | 2021-10-13 | ISTH_PTH ---
PATIENT: CAPRI HERNANDEZ LOC: [facility] U#:[id number] AGE/SX: 66/F ROOM: RE10/13/[address]: Dr. Mark Gipson MD : 1955 BED: DIS: 10/13/2021 SPEC #: [id number] RECD: 10/13/21 12:10 STATUS: TERESA PHILLIP #: [id number] KINSEY: 10/13/21 00:[address]: Mark Gipson DEPT: SURGICAL PATHOLOGY RECD BY: Vern Catherine ENTERED: 10/13/21 12:10 SP TYPE: ISTHMUS OTHR DR: Roberta Monteiro, LOT TECHNICIAN-C Tissues: Thyroid isthmus Procedures: Surgery Specimen Level V HEADER OPERATION: Thyroid lobectomy and isthmusectomy with nerve monitoring PRE-OP DIAGNOSIS: Right thyroid nodule TISSUE SUBMITTED: Right thyroid and isthmus, stitch superior MICROSCOPIC DIAGNOSIS Right thyroid lobe and isthmus, lobectomy and isthmusectomy: Multiple colloid nodules Largest colloid nodule with adenomatoid change and dystrophic microcalcifications. AM:ashley 10/15/2021 COMMENT There are multiple colloid nodules present in the specimen. The largest of the nodules measures 1.3cm in greatest dimension and contains dystrophic macrocalcifications and adenomatoid change. Reference is made to the patient's previous fine needle aspiration of right thyroid nodule ([id number]) in which changes consistent with benign follicular nodule was identified. Case has been reviewed in consultation with Dr. Shultz who concurs with the above diagnosis. IDC:SJ MICROSCOPIC DESCRIPTION Slides are reviewed. GROSS DESCRIPTION Received in fixative is one container labeled with the patient's name and designated right thyroid and isthmus. The specimen consists of a right lobe of thyroid measuring 3.2 x 2 x 2 cm. The isthmus measures 2 x 1 x 0.6 cm. The specimen weighs 36.5 gm. The specimen is differentially inked as follows: anterior thyroid - blue, anterior isthmus - yellow and posterior surfaces of isthmus and thyroid - black. Serial sections of the right lobe reveal an ovoid, ly lesion measuring 1.3 x 1 x 0.7 cm and containing a central area of calcification. Serial sections of the isthmus do not reveal mass lesions. The specimen is submitted after additional fixation and decalcification in six cassettes. Cassettes 3-5 contain the nodule. / AM:ashley 10/13/2021 TC:1 CPT: 14717
[2021-10-13] MEDS: Lactated Ringers 1,000 ML 15 ML IV (07:00)
--- NOTE | 2021-10-13 07:45 | PCM.HP.BLA ---
History and Physical Date of Service:? 09/09/21 MR#: [id number] Acct: [id number] Name:? CAPRI HERNANDEZ Rep #: [id number] : 1955 ? ? Provider: Dr. Mark Gipson MD Age/Sex:? 66/F ? ? Location: [facility] Status: Signed Intake Vital Signs ? 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: No Is patient in pain?: No Allergies grass pollen-perennial rye, standar Allergy (Intermediate, Verified 09/09/21 09:29) sinus Medications alprazolam 0.25 mg tablet 0.25 mg PO BID PRN Anxiety 08/13/18 [History Confirmed 09/09/21] naproxen sodium 220 mg capsule (Aleve) 220 mg PO BID PRN 11/12/20 [History Confirmed 09/09/21] sodium chloride 0.65 % nasal drops ([place] Saline) 2 drp intranasal Q4H PRN 11/12/20 [History Confirmed 09/09/21] zinc 50 mg tablet 50 mg PO DAILY #90 tabs 11/13/20 [Rx] Claritin-D 24 Hour 10 mg-240 mg tablet,extended release (loratadine-pseudoephedrine) 1 tab PO DAILY PRN allergy symptoms #30 tabs 01/26/21 [Rx Confirmed 09/09/21] cholecalciferol (vitamin D3) 25 mcg (1,000 unit) tablet 1,000 unit PO MO #90 tabs 01/26/21 [Rx Confirmed 09/09/21] PFSH Medical History? Acute appendicitis Anxiety Blurry vision Colon cancer Colonoscopy planned (~08/12/19) Generalized anxiety disorder with panic attacks Hypertension Hyperthyroidism Seasonal allergies Thyroid disease UPPER GI (~08/12/19) Vitamin D deficiency Surgical History? History of bilateral mastectomy History of History of surgery on right wrist History of tonsillectomy History of tubal ligation history surgery right elbow s/p laparoscopic right hemicolectomy (~08/16/18) Family History?(Updated 09/09/21 @ 09:19 by Monday) Father Hypertension DiabetesGrandfather CVA (cerebral vascular accident) Myocardial infarctionSister HypertensionBrother HypertensionOther Heart disease Social History?(Updated 09/09/21 @ 09:34 by Monday) Smoking Status:? Former smoker quit date: 03/13/17 Electronic Cigarette Use:? with nicotine alcohol intake:? current alcohol intake frequency: 0-2 drinks per day Alcohol type: wine substance use type:? does not use what type of physical activity do you participate in:? none HPI HPI HPI: CAPRI SIMS, is a 66 F who presents to the office today for thyroid nodules.? They are referred for surgical consultation from Dr. Randolph of endocrinology.? This was discovered during a work-up for hyperthyroidism back in 2012.? Patient states she was referred to an metal control coordinator in [place] and went on medication for a short time to counteract her hyperthyroid state.? She was then told she no longer needed to take the medication and Dr. Brown repeated a thyroid ultrasound approximately 3 years later and referred her to Dr. Randolph. They do not experience difficulty with swallowing.? They do not complain of a new cough.? They do not appreciate new voice changes.? They do not have a history of snoring/sleep apnea. Additionally, their weight has been stable but they do have a history of slight weight gain of 10 pounds since 2018.? Patient expresses frustration that she has not been able to she had this weight despite being active and eating like a bird.? There is no history of recent fatigue.? They do express some recent history of heat intolerance despite initially denying this complaint.? She relates that she previously was able to go out in hot weather and not break a sweat, but now finds it pouring off of her when doing yard work outdoors.? ? Other symptoms include: Occasional palpitations and anxiety.? On several occasions throughout her interview, patient relates a number of significant psychosocial events in her life that have contributed to her depression/anxiety.? They do not have a family history of thyroid disorders or endocrinopathies.? 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 She also underwent right hemicolectomy with Dr. 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 She notes that there was a tumor mutation with absent PMS2, but there was no germline mutation when officially tested with genetics. Previous work-up has included thyroid ultrasound.? This ultrasound demonstrated a right thyroid lobe measuring 4.4 x 2.2 cm and a 2.7 x 1.9 x 1.8 cm nodule was detected within this lobe.? Given its sonographic characteristics (particularly presence of echogenic foci) it was given a TI-RADS rating of 5 and FNA was recommended.? The left lobe of the thyroid measured 4.7 x 1.7 cm and there was a total of 3 subcentimeter nodules.? Isthmus measured 2 mm thickness.? An FNA has not been performed.? Other tests include: TSH: 0.22, T3: 3.4, T4: 0.79 (obtained 08/24/2021). ROS General General: Yes colon cancer and breast cancer; No weight change, appetite, fatigue or weakness HEENT HEENT: Yes eye injury; No difficulty swallowing, eye surgery, swollen glands or hoarseness Endo Endocrine: Yes thyroid disease; No diabetes mellitus, thyroid cancer, Hair loss, heat intolerance or cold intolerance Skin Skin: No rash or changing moles Musc Musculoskeletal: No back problems, arthritis, rheumatoid arthritis, gout or joint pain Cardio Cardiovascular: No murmur, pacemaker, heart disease, atrial fibrillation, high blood pressure, heart attack, heart stent, palpitations, shortness of breat with exertion or chest pain Psych Psychiatric: Yes depression and anxiety; No hearing voices Resp Respiratory: No shortness of breath, No sleep apnea, No cough, No COPD, No asthma, No emphysema and No wheezing Gastro Gastrointestinal: No abdominal pain, No nausea or vomiting, Yes diarrhea, No constipation, No blood in stool, No acid reflux, Yes hemorrhoids, No ulcers, No gallbladder problem and No black,tarry stools Ko Hematologic: No blood thinners, No blood disorders, No bleeding, No anemia and No blood clots Neuro Neurologic: No system reviewed and no additional complaints, except as documented, No as per HPI, No abnormal gait, No abnormal hearing, No abnormal movements, No abnormal speech, No behavioral changes, No burning sensations, No confusion, No convulsions, No disequilibrium, No dizziness, No localized weakness, No frequent falls, No headache(s), No lack of coordination, No loss of vision, No memory loss, No numbness, No other visual disturbances, No radicular pain, No restless legs, No sensory deficit, No syncope, No tingling, No tremor(s), No weakness and No other Exam Const General: cooperative and anxious Other: Appears distracted and distraught at times Neck Neck: no lymphadenopathy Thyroid: asymmetrical, solitary palpable nodule on the right and tender (Mild) Other: No thyroid bruit noted Neuro Other: Patient displays bilateral upper extremity tremor Office Procedures Fine Needle Aspiration Provider Documentation Details: Indication: Right thyroid nodule After obtaining patient consent and conducting a timeout amongst those present, the procedure was commenced by locating the suspicious nodule in the inferior pole of the right thyroid lobe using ultrasound.? Superficially, the skin was cleaned with an alcohol swab and a wheal of local anesthetic was created after instilling 8 ml 1% lidocaine.? Then, under ultrasound guidance, multiple passes were made into the thyroid nodule using a 25-gauge needle.? Once an adequate specimen was detected within the hub of the needle and bottom of the syringe, this was handed off the field.? A second pass was made in a similar manner using a 22-gauge needle.? This specimen, also, was passed off the field for cytopathologic evaluation.? External pressure was applied to the neck to assist with hemostasis. ? A quick examination was made with ultrasound to exclude any evidence of hematoma formation.? Then the surface of the neck was cleaned, dried, and a bandage was applied.? Patient was gradually returned to the sitting position and after short period of monitoring was dismissed.? Wound care instructions and expectations regarding pathologic processing were discussed prior to dismissal. Complications: None Estimated blood loss: 1 ml Alert Jv Alert Billing: Yes FNA [id number] Thyroid Procedure Time Out Time Out Informed consent given: Yes Consent signed: Yes Time out checklist: patient, procedure, site marked/identified, positioning of patient, supplies available, allergies confirmed and team agrees on procedure Time out staff in room: Yes Time out verified: Yes Time out date: 09/09/21 Time out time: 10:05 Assessment and Plan Assessment and Plan (1) Hyperthyroidism: ?Status:?Chronic (2) Thyroid nodule, hot: ?Status:?Acute ?Plan: This is a 66-year-old female who presents for evaluation of thyroid nodules?particularly a hot right-sided thyroid nodule and also exhibits suspicious sonographic features earning it a TI-RADS rating of 5 by radiology.? Patient has a complicated past medical and psychosocial history, but a number of her historical items are suggestive of her underlying hyperthyroidism.? Given the suspicious sonographic features, I did recommend biopsy of her nodule, but stated that even if it is found to be benign, it may be reasonable to pursue right thyroid lobectomy given a number of symptoms that could be linked back to this nodule.? Patient expressed understanding of this rationale and gave her consent to proceed with biopsy.? Therefore it was undertaken during today's consultation without complication.? We will plan to follow-up with her once the cytopathology results are known for formulation of remainder of her treatment plan.? She was also provided with post procedure instructions including wound care. I have re-examined the patient. There are no clinical changes since date of exam. She states that she has been busy at home trying to catch up her housework ahead of surgery as she knows that she will face down time and as a result feels like her allergies are flared, but otherwise has had no changes with respect to her health. The expectations of the procedure and post procedure recovery were reviewed with both patient and her daughter at bedside. They have no further questions. Therefore we will proceed with scheduled right thyroid lobectomy and isthmusectomy using intraoperative neuro monitoring.
[2021-10-13] MEDS: Sugammadex Sodium 200 MG/2 ML VIAL IV (08:04)
[2021-10-13] MEDS: Bupivacaine 0.25% 30 ML Vial (08:15)
--- NOTE | 2021-10-13 09:20 | PCM.OPRPT ---
Report of Operation Date of Procedure: 10/13/21 Pre-Operative Diagnosis: 1. Toxic thyroid nodule 2. Multinodular goiter Post-Operative Diagnosis: Same Surgery/Procedure Performed:: Right thyroid lobectomy with isthmusectomy using intraoperative nerve monitoring Surgeon: Mark Gipson bolt loader: Rodriguez Anderson bolt loader: Caroline Del Castillo Type of Anesthesia: General/Supplemental Anesthesiologist: Maurilio Corbin Specimen's removed: Right thyroid lobe and isthmus Estimated Blood Loss (mL): 10 Description of Procedure: After appropriate identification in the preoperative holding area, the patient was brought to the operating room where she was positioned supine on the operating room table. Induction of general endotracheal anesthetic was begun and a NIMS tube was placed under glidescope view to confirm coaptation with the vocal cords anteriorly. Tube was then secured and the patient was positioned with a shoulder roll so that her head was in extension but supported. The Nims electrodes were placed and connected to the monitor. We had appropriate resistance showing on the monitor and tapping at the level of the cricoid produce a graphical representation of the impulse on the monitor. Patient's neck was then prepped and draped in usual sterile fashion and a formal timeout was conducted from those present. The lowest skin fold to the sternal notch was selected for incision site (this resided approximately 2 and half fingerbreadths cephalad to the notch). An incision was extended for 2 cm on either side of midline. Electrocautery was used to deepen this incision through the level of the platysma. Subplatysmal flaps were raised with the use of electrocautery and blunt dissection. The strap muscles were then divided along the medial raphe bringing us down to the level of the thyroid. Capsular attachments to the thyroid were divided with the use of LigaSure or bluntly swept away. Retractors were placed regarding excellent visualization of the superior pole of the thyroid. The vessels of the superior pole were sequentially ligated with the use of the LigaSure device. As we moved towards the thyroid gland away from the pole vessels, we were careful to identify the superior parathyroid gland and preserve its vascular pedicle. We then moved inferiorly and divided the middle thyroid vein before then dividing the inferior pole vessels adjacent to the thyroid capsule with LigaSure. The inferior parathyroid gland was not grossly visualized with this capsular dissection, but I did not intentionally look for it after I recognize it was not medial apparent. With the poles freed the thyroid was mobilized medially. I bluntly the remaining strap muscle fibers from the thyroid capsule and using blunt dissection parallel to the presumed course of the recurrent laryngeal nerve, exposed the tracheoesophageal groove. Here I encountered a positive signal for the right recurrent laryngeal nerve and was shortly thereafter able to visualize the nerve. The nerve positively identified, I relieved the attachments of the thyroid gland to the underlying trachea with the use of LigaSure. As we again approached the nerve insertion of the cricothyroid membrane, I elected to leave a minuscule amount of thyroid tissue intact using 4-0 silk ligatures. The recurrent laryngeal nerve signal was checked prior to the division of any thyroid tissue. In the cephalad portion of the incision, I did encountered what appeared to be a small pyramidal lobe and this was dissected free of the trachea and amputated along with the specimen en bloc using LigaSure. Once I had assured clearance from the nerve, the remaining thyroid tissue was removed from the anterior surface of the trachea with electrocautery to include the entirety of the thyroid isthmus. The specimen was divided with the LigaSure device for hemostasis. The superior pole of the gland was marked with a suture and the specimen passed off the field for permanent section. Pressure was applied to the surgical cavity and the cavity was irrigated with sterile water. The surgical cavity was inspected and we found hemostasis to be intact. I again confirmed the signal on the right recurrent laryngeal nerve. Satisfied with this result, the strap muscles were closed with a running 3-0 Vicryl stitch leaving a small gap at the inferior aspect of the suture line. The platysmal flaps were closed with interrupted 3-0 Vicryl. Some additional local anesthetic was infiltrated throughout the dermis and the skin was closed in a subcuticular fashion using 4-0 Monocryl. Steri-Strips were applied. Telfa and Tegaderm were used as a dressing. The patient was then awakened from anesthetic without event and was taken to PACU for ongoing recovery. Grafts/Implants Used: NA Complications None Admit VTE Documentation VTE Present on Admission: Yes VTE Mechan Device Prophylaxis: SCD's
--- NOTE | 2021-10-13 09:25 | DCINST_ITS ---
Discharge Instructions Diet Discharge Diet: No restrictions (However recommend a liquid to soft diet initially postoperatively) Activity Discharge Activity: May Not Drive (While it remains difficult to check blind spots quickly) May shower in (days): 2 Ice area for (Minutes): 20 Lifting Restrictions: No lifting greater than 15 pounds for 2 weeks after surgery Dressing / Incision Call your doctor if your incision/area has: Continuous Slow Oozing, Sudden Increased Bleeding, Increased Pain/ Swelling, Increased Redness and Swelling at the incision site Call your doctor if you observe: Numbness or Tingling Remove Dressing in: 2 days (Please leave Steri-Strips intact until they fall off spontaneously or are taken off at your follow-up visit) Cleanse incision/area with: Soap & Water Follow Up Care Please Follow Up With: Mark Gipson MD When: 7 days postop Test Results: Test results from this visit will be discussed in further detail at your follow- up appointment, if applicable. Discharge Plan Admission Primary Reason for Your Visit: Thyroid lobectomy Attending Provider: Mark Gipson Primary Care Provider: Roberta Monteiro Instructions Additional Instructions / Restrictions: Please take a regular strength Tums if experiencing numbness or tingling of the fingertips or about the lips and notify Dr. Gipson Discharge Orders/Prescriptions Prescriptions: No Action Brohard Saline 0.65 % drops 2 drp intranasal Q4H PRN (Reason: dry nose) naproxen sodium [Aleve] 220 mg capsule 220 mg PO BID PRN (Reason: Pain) loratadine-pseudoephedrine [Claritin-D 24 Hour] 10-240 mg tablet extended release 24 hr 1 tab PO DAILY PRN (Reason: allergy symptoms) Qty: 30 0RF alprazolam [Xanax] 0.25 MG tablet 0.25 mg PO BID PRN (Reason: Anxiety) Rx Instructions: new prescription per pt simethicone [Gas-X Extra Strength] 125 mg Capsule 125 mg PO DAILY PRN (Reason: bloating) zinc 50 mg tablet 50 mg PO DAILY Qty: 90 1RF cholecalciferol (vitamin D3) 25 mcg (1,000 unit) tablet 1,000 unit PO MO Qty: 90 1RF Other Ambulatory Orders: CBC-Complete Blood Cnt No Diff (Routine) Timeframe: [id number] Facility: [facility] - Location: Laboratory Ordered By: Dr. Naga Salgado 12 Lead EKG (Routine) Location: None Selected Ordered By: Dr. Naga Salgado Referrals / Follow Up: Roberta Monteiro, OIL CHANGER-C [Primary Care Provider] - Disposition Disposition (needs filled in before D/C Order can be placed): Home, Self Care
== END 2021-10-13 11:18 | disposition home or self-care (01) ==
LOC: SDC 06:15 → AC 06:21
PROVIDERS: PCP Nurse Practitioner Family; Referring Provider Surgery; Visit Provider Surgery
PROC: (CPT 60210; principal; 2021-10-13 07:45)
DX: E05.20 Thyrotoxicosis with toxic multinodular goiter without thyrotoxic crisis or storm (principal); I45.10 Unspecified right bundle-branch block; E55.9 Vitamin D deficiency, unspecified; F41.1 Generalized anxiety disorder; Z79.899 Other long term (current) drug therapy; Z87.891 Personal history of nicotine dependence
CPT/HCPCS: 60210; 00320; 88307; 93005; J7120; J2405

== ENCOUNTER → 2021-11-18 | Outpatient (CLI) | payer MEDICARE, MEDICAID, SELFPAY ==
[2021-11-18 11:24] LABS: Hematocrit 46.7 % (37-47); Hemoglobin 15.3 g/dL (12.0-15.0); Mean Corp Hgb Conc 32.8 g/dL (32-36); Mean Corpuscular Hgb 29.3 pg (27.0-32.0); Mean Corpuscular Volume 89.3 fL (81-99); Mean Platelet Vol. 9.8 fl (6.2-12.0); Platelet Count 270 K/mm3 (150-450); RBC Distribution Width SD 45.5 fl (35.1-43.9); Red Blood Count 5.23 M/mm3 (4.2-5.4); White Blood Count 9.2 K/mm3 (4.4-11.0)
[2021-11-18 11:48] LABS: PTHIN 47.4 pg/mL (18.4-80.1)
[2021-11-18 11:58] LABS: Calcium,Total 9.4 mg/dL (8.5-10.1); Free T3 2.5 pg/mL (2.18-3.98); T4 Total, Thyroxin 6.4 ug/dL (4.8-13.9); Thyroid Stim Hormone (TSH) 3.65 uIU/mL (0.358-3.74)
== END | disposition home or self-care (01) ==
LOC: PAVLAB 11:08
PROVIDERS: Anesthesiology; PCP Nurse Practitioner Family; Referring Provider Surgery; Visit Provider Surgery
DX: Z01.818 Encounter for other preprocedural examination (principal); E89.0 Postprocedural hypothyroidism
CPT/HCPCS: 36415; 82310; 83970; 84436; 84443; 84481; 85027

== ENCOUNTER → 2022-01-12 | Outpatient (CLI) | payer MEDICARE, MEDICAID, SELFPAY ==
--- NOTE | 2022-01-12 09:35 | BD_ITS ---
STUDY: DUAL ENERGY X-RAY ABSORPTIOMETRY / DXA REASON FOR EXAM: Female, 66 years old. m810 TECHNIQUE: Bone Mineral Density (BMD) measurements of lumbar spine and bilateral hips were obtained. COMPARISON: None. FINDINGS: Lumbar Spine (L1-L4): g/cm2 (0.958) / T-score (-0.8) / Z-score (1.0) Findings are suggestive of normal bone density with a low fracture risk. Left Femur Total: g/cm2 (0.812) / T-score (-1.1) / Z-score (0.2) Left Femoral Neck: g/cm2 (0.649) / T-score (-1.8) / Z-score (-0.2) Right Femur Total: g/cm2 (0.795) / T-score (-1.2) / Z-score (0.1) Right Femoral Neck: g/cm2 (0.6-2) / T-score (-2.0) / Z-score (-0.5) BD/Dexa Bone Density Study IMPRESSION: The patient is considered osteopenic as outlined below according to World Peña Organization (WHO) criteria with a moderate fracture risk. Reference Information: The T-score is the number of standard deviations above or below the standard which is normal for young adults at their peak bone mineral density. The World Health Organization (WHO) interprets the T-scores as follows: Above -1 Normal bone density Between -1 and -2.5 Osteopenia Equal to / or below -2.5 Osteoporosis As a practical clinical guideline, osteopenia may be graded as follows: Mild -1 through -1.5 Moderate -1.6 through -2.0 Severe -2.1 through -2.4 The Z-score is the number of standard deviations above or below age-matched controls. A Z-score of less than -1.5 would be considered abnormal. References: 1. NIH Osteoporosis and Related Bone Diseases www osteo.org 2. International Society for Clinical Densitometry www iscd.org 3. National Osteoporosis Foundation www nof.org Electronically Signed: Dav Kent MD at 8:46 EDT ,
== END | disposition home or self-care (01) ==
LOC: OPBD 09:26
PROVIDERS: PCP Nurse Practitioner Family; Visit Provider Nurse Practitioner Family
DX: M81.0 Age-related osteoporosis without current pathological fracture (principal)
CPT/HCPCS: 77080

== ENCOUNTER → 2022-03-30 | Outpatient (CLI) | payer MEDICARE, MEDICAID, SELFPAY ==
[2022-03-30 15:35] LABS: Absolute Lymphocyte Count 2.73 X10^3/uL (0.83-4.51); Absolute Neutrophil Count 6.6 X10^3/uL (2.0-7.7); Basophil# 0.05 X10^3/uL; Basophil% 0.5 % (0-1); Eosinophil# 0.14 X10^3/uL; Eosinophils% 1.4 % (0-5); Hematocrit 43.6 % (37-47); Hemoglobin 14.2 g/dL (12.0-15.0); Lymphocyte # 2.73 X10^3/ul (0.83-4.51); Lymphocyte % 26.5 % (19-41); Mean Corp Hgb Conc 32.6 g/dL (32-36); Mean Corpuscular Hgb 29.2 pg (27.0-32.0); Mean Corpuscular Volume 89.7 fL (81-99); Mean Platelet Vol. 9.8 fl (6.2-12.0); Monocyte# 0.76 X10^3/uL; Monocyte% 7.4 % (0-10); NRBC Flagged by Analyzer 0 % (0-5); Neutrophil # 6.62 X10^3/uL (2.7-7.7); Platelet Count 293 K/mm3 (150-450); RBC Distribution Width CV 13.5 % (11.6-14.6); RBC Distribution Width SD 44.1 fl (35.1-43.9); Red Blood Count 4.86 M/mm3 (4.2-5.4); White Blood Count 10.3 K/mm3 (4.4-11.0)
[2022-03-30 16:09] LABS: Free T3 2.6 pg/mL (2.18-3.98); T4 Total, Thyroxin 6.1 ug/dL (4.8-13.9); Thyroid Stim Hormone (TSH) 4.36 uIU/mL (0.358-3.74)
== END | disposition home or self-care (01) ==
LOC: PAVLAB 15:05
PROVIDERS: PCP Nurse Practitioner Family; Referring Provider Surgery; Visit Provider Surgery
DX: E89.0 Postprocedural hypothyroidism (principal)
CPT/HCPCS: 36415; 84436; 84443; 84481; 85025

== ENCOUNTER → 2022-05-10 | Outpatient (CLI) | payer MEDICARE, MEDICAID, SELFPAY ==
[2022-05-10 09:08] LABS: Free T3 3.1 pg/mL (2.18-3.98); T4 Total, Thyroxin 8.4 ug/dL (4.8-13.9); Thyroid Stim Hormone (TSH) 4.09 uIU/mL (0.358-3.74)
== END | disposition home or self-care (01) ==
LOC: PAVLAB 07:58
PROVIDERS: PCP Nurse Practitioner Family; Referring Provider Surgery; Visit Provider Surgery
DX: E89.0 Postprocedural hypothyroidism (principal); E04.1 Nontoxic single thyroid nodule; E04.2 Nontoxic multinodular goiter
CPT/HCPCS: 36415; 84436; 84443; 84481

== ENCOUNTER → 2022-07-06 | Outpatient (CLI) | payer MEDICARE, MEDICAID, SELFPAY ==
--- NOTE | 2022-07-06 14:25 | RAD_ITS ---
INDICATION: Hit left toes on furniture in May, continued pain. EXAMINATION/TECHNIQUE: X-RAY - LEFT FOOT XR Toes Min 2 Views COMPARISON: No comparison imaging received. FINDINGS: SOFT TISSUES: No significant soft tissue swelling. No radiopaque foreign body detected. BONES/JOINTS: Nondisplaced healing fracture midshaft fifth proximal phalanx with no intra-articular extension. No dislocation. Mild hallux valgus deformity with mild first metatarsophalangeal joint space narrowing and minimal osteophytosis. Remaining joint spaces are preserved. RAD/Toe(s) Min 2 Views IMPRESSION: 1. Healing nondisplaced fracture proximal phalanx left fifth toe 2. Left hallux valgus deformity with first MTP osteoarthrosis Electronically Signed: Juancarlos Montero MD at 7:49 EDT ,
== END | disposition home or self-care (01) ==
LOC: RAD 14:23
PROVIDERS: PCP Nurse Practitioner Family; Referring Provider Nurse Practitioner Family; Visit Provider Nurse Practitioner Family
DX: M79.675 Pain in left toe(s) (principal)
CPT/HCPCS: 73660

== ENCOUNTER → 2022-08-29 | Outpatient (CLI) | payer MEDICARE, MEDICAID, SELFPAY ==
--- NOTE | 2022-08-29 11:54 | US_ITS ---
STUDY: THYROID ULTRASOUND REASON FOR EXAM: Female, 67 years old. History of partial thyroidectomy TECHNIQUE: Ultrasound evaluation of the thyroid was performed with real-time and static flores-scale imaging. COMPARISON: 08/27/2021 FINDINGS: RIGHT LOBE: There is been previous resection of the right thyroid lobe. There is a small amount of residual homogeneous thyroid tissue remaining measuring 1.2 x 0.6 x 0.5 cm. LEFT LOBE: The left lobe of the thyroid gland measures 3.5 x 1.6 x 1.0 cm. There is a heterogeneous echotexture. 2 separate stable solid nodules, larger measures 0.7 x 0.7 x 0.5 cm. ISTHMUS: The isthmus measures 2 mm. The regional lymph nodes are normal. US/Thyroid IMPRESSION: Previous removal of the right thyroid lobe. There is residual thyroid tissue in the right thyroid bed measuring 1.2 x 0.6 x 0.5 cm, no suspicious findings within this residual tissue Stable subcentimeter hypoechoic nodules in the left thyroid lobe. Another year follow-up recommended to ensure stability Electronically Signed: Elvis Franco MD at 12:26 EDT ,
== END | disposition home or self-care (01) ==
LOC: US 11:52
PROVIDERS: PCP Nurse Practitioner Family; Referring Provider Surgery; Visit Provider Surgery
DX: E89.0 Postprocedural hypothyroidism (principal)
CPT/HCPCS: 76536

== ENCOUNTER → 2022-09-07 | Outpatient (CLI) | payer MEDICARE, SELFPAY ==
[2022-09-07 12:14] LABS: Free T3 2.6 pg/mL (2.18-3.98); T4 Free Direct 0.74 ng/dL (0.76-1.46); Thyroid Stim Hormone (TSH) 1.99 uIU/mL (0.358-3.74)
== END | disposition home or self-care (01) ==
LOC: PAVLAB 10:54
PROVIDERS: PCP Nurse Practitioner Family; Referring Provider Surgery; Visit Provider Surgery
DX: E89.0 Postprocedural hypothyroidism (principal)
CPT/HCPCS: 36415; 84439; 84443; 84481

== ENCOUNTER → 2023-05-26 | Outpatient (CLI) | payer MEDICARE, SELFPAY ==
--- NOTE | 2023-05-26 13:27 | US_ITS ---
STUDY: ULTRASOUND BREAST - RIGHT REASON FOR EXAM: Female, 68 years old. Right breast pain and swelling. TECHNIQUE: Axial and longitudinal images of the RIGHT breast were performed with a high resolution ultrasound transducer. # OF IMAGES: 67 COMPARISON: Comparison is made with prior ultrasound the right breast dated June 13, 2017. FINDINGS: RIGHT Breast: Increased linear markings are seen within the breast implant. Rupture should BE excluded. Correlation with MRI is recommended. US/Breast Limited Unilateral IMPRESSION: Findings suggestive of possible rupture of the breast implant. Correlation with MRI is recommended. ASSESSMENT CATEGORY: BIRADS Category 0: Incomplete. Need additional imaging evaluation. A letter regarding these results will be sent to the patient by the facility within 30 days. Electronically Signed: Dav Kent MD at 15:16 EDT ,
== END | disposition home or self-care (01) ==
PROVIDERS: PCP Nurse Practitioner Family; Referring Provider Obstetrics & Gynecology; Visit Provider Obstetrics & Gynecology
DX: N64.4 Mastodynia (principal)
CPT/HCPCS: 76642

== ENCOUNTER → 2023-07-03 | Outpatient (CLI) | payer MEDICARE, SELFPAY ==
--- NOTE | 2023-07-03 11:04 | MRI_ITS ---
STUDY: BILATERAL BREAST MR WITHOUT AND WITH CONTRAST REASON FOR EXAM: Female, 68 years old. Bilateral breast pain. TECHNIQUE: Multi-sequence multi-echo imaging of both breasts was performed with a dedicated breast coil. T1-weighted and T2-weighted images were without intravenous contrast administration. COMPARISON: Right breast ultrasound dated 06/13/2017. FINDINGS: RIGHT BREAST: Patient has undergone mastectomy with placement of right implant. Intracapsular rupture of the right implant with no extracapsular component. LEFT BREAST: Mastectomy with implant placement. Prominent folds with no evidence of intracapsular or extracapsular rupture. No enlarged or abnormal lymph nodes. No abnormality in the visualized regions of the chest or liver. MRI/MRI BREAST W/O CONT BILAT IMPRESSION: Mastectomies with implant placement bilaterally. Right intracapsular rupture with no extracapsular component. Normal left implant with prominent folds and no evidence of intracapsular or extracapsular rupture. CATEGORY: Electronically Signed: Guy Smith MD at 13:45 EDT ,
== END | disposition home or self-care (01) ==
PROVIDERS: PCP Nurse Practitioner Family; Referring Provider Obstetrics & Gynecology; Visit Provider Obstetrics & Gynecology
DX: N64.4 Mastodynia (principal); Z90.13 Acquired absence of bilateral breasts and nipples; Z98.82 Breast implant status
CPT/HCPCS: 77047

== ENCOUNTER 2023-07-31 09:24 | Day surgery (SDC) | payer MEDICARE, SELFPAY ==
--- NOTE | 2023-07-31 09:37 | EKG12_ITS ---
Test Reason : PREOP Blood Pressure : / mmHG Vent. Rate : 088 BPM Atrial Rate : 088 BPM P-R Int : 140 ms QRS Dur : 136 ms QT Int : 412 ms P-R-T Axes : -23 096 006 degrees QTc Int : 498 ms Normal sinus rhythm Right bundle branch block Abnormal ECG When compared with ECG of 11-OCT-2021 08:38, No significant change was found Confirmed by Mark Elise ([id number]), slot editor TOMAS LAU ([id number]) on 08/02/2023 9:00:04 AM Referred By: Roberta Monteiro Confirmed By:Mark Elise
--- NOTE | 2023-07-31 09:50 | PCM.HP.BLA ---
History and Physical Date of Admission: 07/31/23 Date of Service: 07/19/23 MR#: [id number] Acct: [id number] Name: CAPRI HERNANDEZ Rep #: [id number] : 1955 Provider: Dr. Vicky Melvin MD Age/Sex: 68/F Location: [facility] Status: Signed Intake Vital Signs 07/10/2410:37 07/18/2412:49 Height 5 ft 4 in 5 ft 4 in Weight: 138 lb BMI 23.6 BP 124/76 H Blood Pressure Location Rt brachial Position Sitting Respiration 17 Pulse 90 Pulse Source Monitor Temp 97 F L Temp Source Temporal Pulse Oximetry (%) 98 Oxygen Delivery Method room air Intake Visit Reasons: Colonoscopy/pain in incision from colon surgery 19 Chief Complaint: colonoscopy/pain incision colon surgery Is patient in pain?: Yes Allergies grass pollen-perennial rye, standar Allergy (Intermediate, Verified 07/19/23 13:50) sinus Medications alprazolam 0.25 mg tablet (Xanax) 0.25 mg PO BID PRN Anxiety 08/13/18 [History Confirmed 07/19/23] naproxen sodium 220 mg capsule (Aleve) 220 mg PO BID PRN Pain 11/12/20 [History Confirmed 07/19/23] sodium chloride 0.65 % nasal drops ([place] Saline) 2 drp intranasal Q4H PRN dry nose 11/12/20 [History Confirmed 07/19/23] Claritin-D 24 Hour 10 mg-240 mg tablet,extended release (loratadine-pseudoephedrine) 1 tab PO DAILY PRN allergy symptoms #30 tabs 01/26/21 [Rx Confirmed 07/19/23] simethicone 125 mg capsule (Gas-X Extra Strength) 125 mg PO DAILY PRN bloating 10/05/21 [History Confirmed 07/19/23] levothyroxine 50 mcg tablet 50 mcg PO DAILY #45 tabs 05/10/22 [Rx Confirmed 07/19/23] amlodipine 10 mg tablet (Norvasc) 10 mg PO DAILY 07/19/23 [History Confirmed 07/19/23] [facility] Medical History Acute appendicitis Anxiety Blurry vision Chronic diarrhea Colon cancer Colonoscopy planned (~08/12/19) Generalized anxiety disorder with panic attacks Hypertension Hyperthyroidism Seasonal allergies Smoker Thyroid disease UPPER GI (~08/12/19) Vitamin D deficiency Wears contact lenses Wears glasses Surgical History History of bilateral mastectomy History of History of surgery on right wrist History of thyroidectomy History of tonsillectomy History of tubal ligation history surgery right elbow s/p laparoscopic right hemicolectomy (~08/16/18) Family History Father Hypertension DiabetesGrandfather CVA (cerebral vascular accident) Myocardial infarctionSister HypertensionBrother HypertensionOther Heart disease Social History (Updated 07/19/23 @ 13:49 by Stephanie Bautista) Smoking Status: Current some day smoker tobacco type: e-cigarettes alcohol intake: current alcohol intake frequency: 0-2 drinks per day Alcohol type: wine substance use type: does not use what type of physical activity do you participate in: none HPI HPI HPI: 68-year-old female presents due to pain at incisional hernia as well as surveillance colonoscopy. Patient had right hemicolectomy in 2018 did have a follow-up in 2019 recommended at her follow-up in 3 years. Patient states that she has soft bowel movements daily denies any blood. Patient denies any reflux does have pain at her incision. Patient is also scheduled to have surgery with the plastic surgeon due to a ruptured breast implant August 23. ROS General General: Yes fatigue, colon cancer and breast cancer; No weight change or appetite HEENT HEENT: No difficulty swallowing, eye injury, eye surgery, swollen glands or hoarseness Endo Endocrine: Yes thyroid disease; No diabetes mellitus, thyroid cancer, Hair loss, heat intolerance or cold intolerance Skin Skin: No rash or changing moles Musc Musculoskeletal: No back problems, arthritis, rheumatoid arthritis, gout or joint pain Cardio Cardiovascular: Yes high blood pressure; No murmur, pacemaker, heart disease, atrial fibrillation, heart attack, heart stent, palpitations, shortness of breat with exertion or chest pain Psych Psychiatric: Yes anxiety; No depression or hearing voices Resp Respiratory: No shortness of breath, No sleep apnea, No cough, No COPD, No asthma, No emphysema and No wheezing Gastro Gastrointestinal: Yes abdominal pain, Yes nausea or vomiting, No diarrhea, No constipation, No blood in stool, No acid reflux, No hemorrhoids, No ulcers, No gallbladder problem and No black,tarry stools Ko Hematologic: No blood thinners, No blood disorders, No bleeding, No anemia and No blood clots Neuro Neurologic: No numbness and No tingling Exam Const General: cooperative, healthy appearing, comfortable and no acute distress [facility] Head: normocephalic and atraumatic Neck Neck: supple Resp Effort & Inspection: normal respiratory effort Cardio Rate: regular rate GI Inspection: non-distended Palpation: soft, hernia (Incisional midline-multiple small, mildly tender, reducible) and nontender Skin General: no rashes or lesions noted Neuro General: CN's II-XI intact bilaterally Extrem General: normal to inspection Psych Mental Status: mental status grossly normal Attitude: cooperative Assessment and Plan Assessment and Plan (1) Encounter for colonoscopy due to history of colon cancer: Status: Acute (2) Incisional hernia: Status: Acute Orders: Orders Colonoscopy 07/31/23 Plan Discussed with patient would plan for colonoscopy prior repair of incisional hernia in case we would need to do any further surgery for the colon. I have discussed the above with the patient. I have offered the patient colonoscopy for evaluation. I have explained the risks/benefits of the procedure and described the procedure. I have discussed the risks with the patient, including but not limited to: infection, bleeding, perforation of the GI tract requiring emergency surgery, inability to complete the procedure, injury to any internal organs, complications of anesthesia, etc. - the patient understands and agrees to proceed. I have answered all the patient's questions to the patient's satisfaction and the patient has no further questions. The patient has been given instructions for the colon cleansing preparation. 1 day of clears, MiraLAX Dulcolax prep Plan to do laparoscopic incisional hernia repair with mesh. Reviewed the procedure with the patient including the risks, including but not limited to infection, bleeding, injury to the small bowel, and recurrence. All questions were answered. Vicky Melvin M.D. Pager: [phone] [facility] [address] [place] [address], [address] [place] [address] Office: [phone] Coding Level of Care Code Off vis,new,level 3 Diagnoses Encounter for colonoscopy due to history of colon cancer Z12.11; Z85.038 Incisional hernia K43.2 07/21/23 1036 <Electronically signed by Vicky Melvin MD> Date Vicky Melvin MD
[2023-07-31 09:54] VITALS: BP 126/92; PULSE 96; RESP 16; TEMP 36.4; O2SAT 98; BMI 22.6
[2023-07-31] MEDS: Lactated Ringers 1,000 ML 15 ML IV (10:00)
[2023-07-31 11:39] VITALS: BP 107/71; BP 126/92; PULSE 71; RESP 16; TEMP 36.2; O2SAT 95
--- NOTE | 2023-07-31 11:39 | OP.CCLET_ITS ---
07/31/2023 Jaguar Landeros Re : Colonoscopy procedure for Tierra Bullock Dear [place] This procedure was performed on Monday, July 31, 2023. My impressions and recommendations are as follows: Impressions : - Diverticulosis in the sigmoid colon and in the descending colon. - The examination was otherwise normal. - No specimens collected. Recommendations : - Discharge patient to home. - Resume previous diet. - Continue present medications. - Repeat colonoscopy in 5 years for surveillance. My findings are described in the full procedure note, which is enclosed. If I can be of further assistance, please feel free to contact me at Doctor phone number(s): , Work: . Sincerely, MD Vicky Whittington MD 07/31/2023 11:38:54 AM This report has been signed electronically.
--- NOTE | 2023-07-31 11:39 | OP.COLON_ITS ---
Patient Name: Tierra Bullock Procedure Date: 07/31/2023 11:12 AM Date of : 1955 Age: 68 Procedure: Colonoscopy Indications: High risk colon cancer surveillance: Personal history of colon cancer Providers: Vicky Melvin MD Referring MD: Jaguar Landeros Medicines: Monitored Anesthesia Care Patient Profile: This is a 68 year old female. Last Colonoscopy: 2019. Complications: No immediate complications. Procedure: Pre-Anesthesia Assessment: - Prior to the procedure, a History and Physical was performed, and patient medications and allergies were reviewed. The patient's tolerance of previous anesthesia was also reviewed. The risks and benefits of the procedure and the sedation options and risks were discussed with the patient. All questions were answered, and informed consent was obtained. Prior Anticoagulants: The patient has taken no anticoagulant or antiplatelet agents. ASA Grade Assessment: Per anesthesia. After reviewing the risks and benefits, the patient was deemed in satisfactory condition to undergo the procedure. After I obtained informed consent, the scope was passed under direct vision. Throughout the procedure, the patient's blood pressure, pulse, and oxygen saturations were monitored continuously. The Colonoscope was introduced through the anus and advanced to the ileocolonic anastomosis. The colonoscopy was performed without difficulty. The patient tolerated the procedure well. The quality of the bowel preparation was good. Scope In: 11:20:19 AM Scope Withdrawal Time 0 hours 5 minutes 23 seconds Scope Out: 11:33:43 AM Total Procedure Duration Time 0 hours 13 minutes 24 seconds Findings: The perianal and digital rectal examinations were normal. Multiple small-mouthed diverticula were found in the sigmoid colon and descending colon. Previous colonic anastomosis widely patent. The exam was otherwise without abnormality. Impression: - Diverticulosis in the sigmoid colon and in the descending colon. - The examination was otherwise normal. - No specimens collected. Recommendation: - Discharge patient to home. - Resume previous diet. - Continue present medications. - Repeat colonoscopy in 5 years for surveillance. Procedure Code(s): --- Professional --- G0105, PT, Colorectal cancer screening; colonoscopy on individual at high risk Diagnosis Code(s): --- Professional --- Z85.038, Personal history of other malignant neoplasm of large intestine K57.30, Diverticulosis of large intestine without perforation or abscess without bleeding CPT copyright 2021 [employer]. All rights reserved. The codes documented in this report are preliminary and upon strip deburrer review may be revised to meet current compliance requirements. MD Vicky Whittington MD 07/31/2023 11:38:54 AM This report has been signed electronically. Number of Addenda: 0 Note Initiated On: 07/31/2023 11:12 AM
[2023-07-31 11:45] VITALS: BP 122/81; BP 126/92; PULSE 75; RESP 16; O2SAT 95
[2023-07-31 11:54] VITALS: BP 126/92; BP 128/89; PULSE 73; RESP 16; TEMP 36.2; O2SAT 99
[2023-07-31 12:13] VITALS: BP 126/92
== END 2023-07-31 12:14 | disposition home or self-care (01) ==
LOC: EN 09:25 → AC 09:36
PROVIDERS: PCP Nurse Practitioner Family; Referring Provider Nurse Practitioner Family; Visit Provider Surgery
PROC: 0DJD8ZZ Inspection of Lower Intestinal Tract, Via Natural or Artificial Opening Endoscopic (ICD-10-PCS; CPT 45378; principal; 2023-07-31 11:25)
DX: Z12.11 Encounter for screening for malignant neoplasm of colon (principal); K43.2 Incisional hernia without obstruction or gangrene; F41.1 Generalized anxiety disorder; F41.0 Panic disorder [episodic paroxysmal anxiety]; F17.290 Nicotine dependence, other tobacco product, uncomplicated; K57.30 Diverticulosis of large intestine without perforation or abscess without bleeding; I10 Essential (primary) hypertension; E05.90 Thyrotoxicosis, unspecified without thyrotoxic crisis or storm; Z79.899 Other long term (current) drug therapy; Z85.038 Personal history of other malignant neoplasm of large intestine
CPT/HCPCS: G0105; 93005; J7120; J2405

== ENCOUNTER 2023-08-08 05:49 | Day surgery (SDC) | payer MEDICARE, SELFPAY ==
[2023-07-31 13:10] LABS: Hematocrit 44.3 % (37-47); Hemoglobin 14.5 g/dL (12.0-15.0); Mean Corp Hgb Conc 32.7 g/dL (32-36); Mean Corpuscular Hgb 29.2 pg (27.0-32.0); Mean Corpuscular Volume 89.3 fL (81-99); Mean Platelet Vol. 10.3 fl (6.2-12.0); Platelet Count 280 K/mm3 (150-450); RBC Distribution Width CV 13.6 % (11.6-14.6); RBC Distribution Width SD 44.4 fl (35.1-43.9); Red Blood Count 4.96 M/mm3 (4.2-5.4); White Blood Count 10.7 K/mm3 (4.4-11.0)
[2023-07-31 14:48] LABS: Anion Gap 4 (5-15); BUN 9 mg/dL (7-18); BUN/Creat Ratio 12.9 RATIO (10-20); Calcium,Total 9.2 mg/dL (8.5-10.1); Chloride 103 mmol/L (98-107); EST Glomerular Filtration Rate 89 mL/min (>60); Est Glom Filt Rate - Afr Amer 107 mL/min (>60); Glucose 100 mg/dL (74-106); Sodium Level 136 mmol/L (136-145)
[2023-08-08] VITALS (8 sets, daily range): BP systolic 120–139; BP diastolic 68–89; PULSE 67–84; RESP 14–18; TEMP 36.2–36.8; O2SAT 90–96; BMI 23.3
[2023-08-08] MEDS: Lactated Ringers 1,000 ML 15 ML IV (06:34)
--- NOTE | 2023-08-08 07:14 | HP.PCM_ITS ---
History and Physical Date of Admission: 08/08/23 Date of Service: 07/19/23 MR#: [id number] Acct: [id number] Name: CAPRI HERNANDEZ Rep #: [id number] : 1955 Provider: Dr. Vicky Melvin MD Age/Sex: 68/F Location: [facility] Status: Signed Intake Vital Signs 07/10/2410:37 07/18/2412:49 Height 5 ft 4 in 5 ft 4 in Weight: 138 lb BMI 23.6 BP 124/76 H Blood Pressure Location Rt brachial Position Sitting Respiration 17 Pulse 90 Pulse Source Monitor Temp 97 F L Temp Source Temporal Pulse Oximetry (%) 98 Oxygen Delivery Method room air Intake Visit Reasons: Colonoscopy/pain in incision from colon surgery 19 Chief Complaint: colonoscopy/pain incision colon surgery Is patient in pain?: Yes Allergies grass pollen-perennial rye, standar Allergy (Intermediate, Verified 07/19/23 13:50) sinus Medications alprazolam 0.25 mg tablet (Xanax) 0.25 mg PO BID PRN Anxiety 08/13/18 [History C onfirmed 07/19/23] naproxen sodium 220 mg capsule (Aleve) 220 mg PO BID PRN Pain 11/12/20 [History Confirmed 07/19/23] sodium chloride 0.65 % nasal drops ([place] Saline) 2 drp intranasal Q4H PRN dry nose 11/12/20 [History Confirmed 07/19/23] Claritin-D 24 Hour 10 mg-240 mg tablet,extended release (loratadine- pseudoephedrine) 1 tab PO DAILY PRN allergy symptoms #30 tabs 01/26/21 [Rx Confirmed 07/19/23] simethicone 125 mg capsule (Gas-X Extra Strength) 125 mg PO DAILY PRN bloating 10/05/21 [History Confirmed 07/19/23] levothyroxine 50 mcg tablet 50 mcg PO DAILY #45 tabs 05/10/22 [Rx Confirmed 07/19/23] amlodipine 10 mg tablet (Norvasc) 10 mg PO DAILY 07/19/23 [History Confirmed 07/19/23] [facility] Medical History Acute appendicitis Anxiety Blurry vision Chronic diarrhea Colon cancer Colonoscopy planned (~08/12/19) Generalized anxiety disorder with panic attacks Hypertension Hyperthyroidism Seasonal allergies Smoker Thyroid disease UPPER GI (~08/12/19) Vitamin D deficiency Wears contact lenses Wears glasses Surgical History History of bilateral mastectomy History of History of surgery on right wrist History of thyroidectomy History of tonsillectomy History of tubal ligation history surgery right elbow s/p laparoscopic right hemicolectomy (~08/16/18) Family History Father Hypertension DiabetesGrandfather CVA (cerebral vascular accident) Myocardial infarctionSister HypertensionBrother HypertensionOther Heart disease Social History (Updated 07/19/23 @ 13:49 by Stephanie Bautista) Smoking Status: Current some day smoker tobacco type: e-cigarettes alcohol intake: current alcohol intake frequency: 0-2 drinks per day Alcohol type: wine substance use type: does not use what type of physical activity do you participate in: none HPI HPI HPI: 68-year-old female presents due to pain at incisional hernia as well as surveillance colonoscopy. Patient had right hemicolectomy in 2018 did have a follow-up in 2019 recommended at her follow-up in 3 years. Patient states that she has soft bowel movements daily denies any blood. Patient denies any reflux does have pain at her incision. Patient is also scheduled to have surgery with the plastic surgeon due to a ruptured breast implant August 23. ROS General General: Yes fatigue, colon cancer and breast cancer; No weight change or appetite HEENT HEENT: No difficulty swallowing, eye injury, eye surgery, swollen glands or hoarseness Endo Endocrine: Yes thyroid disease; No diabetes mellitus, thyroid cancer, Hair loss, heat intolerance or cold intolerance Skin Skin: No rash or changing moles Musc Musculoskeletal: No back problems, arthritis, rheumatoid arthritis, gout or joint pain Cardio Cardiovascular: Yes high blood pressure; No murmur, pacemaker, heart disease, atrial fibrillation, heart attack, heart stent, palpitations, shortness of breat with exertion or chest pain Psych Psychiatric: Yes anxiety; No depression or hearing voices Resp Respiratory: No shortness of breath, No sleep apnea, No cough, No COPD, No asthma, No emphysema and No wheezing Gastro Gastrointestinal: Yes abdominal pain, Yes nausea or vomiting, No diarrhea, No constipation, No blood in stool, No acid reflux, No hemorrhoids, No ulcers, No gallbladder problem and No black,tarry stools Ko Hematologic: No blood thinners, No blood disorders, No bleeding, No anemia and No blood clots Neuro Neurologic: No numbness and No tingling Exam Const General: cooperative, healthy appearing, comfortable and no acute distress [facility] Head: normocephalic and atraumatic Neck Neck: supple Resp Effort & Inspection: normal respiratory effort Cardio Rate: regular rate GI Inspection: non-distended Palpation: soft, hernia (Incisional midline-multiple small, mildly tender, reducible) and nontender Skin General: no rashes or lesions noted Neuro General: CN's II-XI intact bilaterally Extrem General: normal to inspection Psych Mental Status: mental status grossly normal Attitude: cooperative Assessment and Plan Assessment and Plan (1) Encounter for colonoscopy due to history of colon cancer: Status: Acute (2) Incisional hernia: Status: Acute Orders: Orders Colonoscopy 07/31/23 Plan Discussed with patient would plan for colonoscopy prior repair of incisional hernia in case we would need to do any further surgery for the colon. I have discussed the above with the patient. I have offered the patient colonoscopy for evaluation. I have explained the risks/benefits of the procedure and described the procedure. I have discussed the risks with the patient, including but not limited to: infection, bleeding, perforation of the GI tract requiring emergency surgery, inability to complete the procedure, injury to any internal organs, complications of anesthesia, etc. - the patient understands and agrees to proceed. I have answered all the patient's questions to the patient's satisfaction and the patient has no further questions. The patient has been given instructions for the colon cleansing preparation. 1 day of clears, MiraLAX Dulcolax prep Plan to do laparoscopic incisional hernia repair with mesh. Reviewed the procedure with the patient including the risks, including but not limited to infection, bleeding, injury to the small bowel, and recurrence. All questions were answered. Vicky Melvin M.D. Pager: [phone] [facility] [address] [place] [address], [address] [place] [address] Office: [phone] Coding Level of Care Code Off vis,new,level 3 Diagnoses Encounter for colonoscopy due to history of colon cancer Z12.11; Z85.038 Incisional hernia K43.2 07/21/23 1036 <Electronically signed by Vicky Melvin MD> Date Vicky Melvin MD
[2023-08-08 07:32] LABS: Potassium 3.5 mmol/L (3.5-5.1)
[2023-08-08] MEDS: Cefazolin 2 GM in 0.9% Normal Saline (100mL Bag) 100 ML IV (07:37)
--- NOTE | 2023-08-08 09:13 | OP.PCM_ITS ---
Report of Operation Date of Procedure: 08/08/23 Pre-Operative Diagnosis: Multiple incisional hernias Post-Operative Diagnosis: Same Surgery/Procedure Performed:: Laparoscopic incisional hernia repair with mesh Surgeon: Vicky Melvin marketing automation analyst: Harsh Jett Type of Anesthesia: General/Supplemental Anesthesiologist: Maurilio Corbin Special Medications: Ancef 2 g IV x 1 Specimen's removed: none Estimated Blood Loss (mL): 20 Fluids Replaced: 1200 Description of Procedure: Indications this is a 68 year-old female who had a symptomatic incisional ventral hernia. Laparoscopic incisional hernia repair with mesh was elected. Description procedure: The patient was placed on operating table in supine position. General Anesthesia was induced. A timeout was completed verifying correct patient, procedure, site, position, social, and special equipment prior to beginning procedure. The abdomen was prepped and draped in usual sterile fashion. An incision was made in the epigastric midline at one of the hernias. The fascia was elevated and incised. The peritoneum was elevated and incised. Entry into the peritoneum was confirmed visually and no bowel was noted in the vicinity of the incision. Alvarez trocar was placed. The abdomen was insufflated with carbon dioxide to a pressure of 12-15 mmHg. Patient tolerated insufflation well. The laparoscope was then inserted and abdomen inspected. No injuries from initial trocar placement were noted. Additional trochars were then inserted in the following locations 5 mm trocar in the left upper and lower lateral abdomen, and right lower quadrant. The abdomen was inspected found to have multiple incisional hernias along her previous midline incision. The ventral hernia was inspected and omentum was removed with gentle pulling and pressure and Enseal was used for hemostasis. The echo mesh 11.4 cm was showed chosen for repair. Mesh was rolled into a cylinder in place through the Alvarez trocar. The inflation tubing was grasped with a suture passer in the middle of the hernia defect and pulled up against the abdominal wall. The balloon was deployed and the mesh was laying flat against the abdominal wall. This secure strap was used to secure the mesh in place. The balloon deployment system was removed from the mesh and the abdomen. There were 2 tack spots that did have some bleeding which Floseal was used at those locations along with pressure and hemostasis was achieved. The mesh was further secured in place. Secondary trochars removed under direct vision. No bleeding was noted the trocar sites. The laparoscope was withdrawn and umbilical trocar removed. The abdomen was allowed to collapse. The fascia of the 12 mm trocar was closed with a [id number] 0 Prolene suture. The skin was closed with sutures of 4-0 Monocryl and Steri-Strips. The patient was extubated. The patient tolerated procedure well and was taken to the postanesthesia care unit in stable condition. Grafts/Implants Used: Echo mesh 11.4 cm Lot [id number] ref [id number] Complications none
[2023-08-08] MEDS: Bupivacaine Mpf 0.5% 30 ML VIAL (09:17)
--- NOTE | 2023-08-08 09:20 | EX.PCM.DISCH ---
Discharge Instructions Diet Discharge Diet: Light diet - advance as tolerated Activity Discharge Activity: May Not Drive (while taking narcotic pain medications.) May shower in (days): 1 Lifting Restrictions: no lifting >20 lbs x 2 wks, no strenuous exercise for 4 wks Dressing / Incision Call your doctor if your incision/area has: Continuous Slow Oozing, Sudden Increased Bleeding, Increased Pain/ Swelling, Increased Redness, Foul Smelling Discharge and Swelling at the incision site Call your doctor if you observe: Fever of 101 or Higher Remove Dressing in: 2 days Cleanse incision/area with: Soap & Water Additional Dressing/Incision Instructions:: Steri-Strips will fall off in 7 to 10 days, if they do not fall off okay to remove after 10 days. Follow Up Care Please Follow Up With: Vicky Melvin MD When: Call the office for a follow-up appointment 2 weeks; after 5 PM and on the weekends call [phone] with any concerns. Test Results: Test results from this visit will be discussed in further detail at your follow-up appointment, if applicable. Discharge Plan Admission Attending Provider: Vicky Melvin Primary Care Provider: Roberta Monteiro Consulting Providers: Maurilio Corbin Instructions Print Language: German Discharge Orders/Prescriptions Prescriptions: New hydrocodone-acetaminophen 5-325 mg tablet 1 tab PO Q6H PRN (Reason: pain) 3 Days Qty: 14 0RF Continued [place] Saline 0.65 % drops 2 drp intranasal Q4H PRN (Reason: dry nose) naproxen sodium [Aleve] 220 mg capsule 220 mg PO BID PRN (Reason: Pain) loratadine-pseudoephedrine [Claritin-D 24 Hour] 10-240 mg tablet extended release 24 hr 1 tab PO DAILY PRN (Reason: allergy symptoms) Qty: 30 0RF amlodipine [Norvasc] 10 mg tablet 10 mg PO DAILY alprazolam [Xanax] 0.25 MG tablet 0.25 mg PO BID PRN (Reason: Anxiety) Rx Instructions: new prescription per pt simethicone [Gas-X Extra Strength] 125 mg Capsule 125 mg PO DAILY PRN (Reason: bloating) hydrochlorothiazide 25 mg tablet 25 mg PO DAILY levothyroxine 50 mcg tablet 50 mcg PO DAILY Qty: 45 0RF Referrals / Follow Up: Roberta Monteiro, [facility] [Primary Care Provider] - Disposition Disposition (needs filled in before D/C Order can be placed): Home, Self Care
== END 2023-08-08 12:19 | disposition home or self-care (01) ==
LOC: SDC 05:49 → AC 05:52
PROVIDERS: Anesthesiology; PCP Nurse Practitioner Family; Referring Provider Nurse Practitioner Family; Visit Provider Surgery
PROC: 0WQF4ZZ Repair Abdominal Wall, Percutaneous Endoscopic Approach (ICD-10-PCS; CPT 49593; principal; 2023-08-08 07:10)
DX: K43.2 Incisional hernia without obstruction or gangrene (principal); F17.290 Nicotine dependence, other tobacco product, uncomplicated; F41.0 Panic disorder [episodic paroxysmal anxiety]; I10 Essential (primary) hypertension; E05.90 Thyrotoxicosis, unspecified without thyrotoxic crisis or storm; Z79.899 Other long term (current) drug therapy
CPT/HCPCS: 49593; 00830; J7120; 36415; 80048; 84132; 84443; 85027; C1760; J2405

== ENCOUNTER → 2023-10-05 | Outpatient (CLI) | payer MEDICARE, SELFPAY ==
--- NOTE | 2023-10-05 13:03 | US_ITS ---
STUDY: THYROID ULTRASOUND REASON FOR EXAM: Female, 68 years old. thyroid nodule TECHNIQUE: Ultrasound evaluation of the thyroid was performed with real-time and static flores-scale imaging. COMPARISON: 08/29/2022 FINDINGS: RIGHT LOBE: The right lobe of the thyroid gland measures 1.7 x 0.7 x 0.9 cm. There is a heterogeneous echotexture. Tiny (less than 5 mm) hypoechoic nodule consistent with a tiny adenoma. LEFT LOBE: The left lobe of the thyroid gland measures 3.0 x 1.5 x 1.1 cm. There is a heterogeneous echotexture. Multiple tiny (less than 5 mm) hypoechoic nodules consistent with tiny adenomas. ISTHMUS: The isthmus measures 2 mm thick. . The regional lymph nodes are normal. US/Thyroid IMPRESSION: No change in thyroiditis with tiny adenomas Electronically Signed: Jorden Melendez MD at 9:45 EDT ,
== END | disposition home or self-care (01) ==
PROVIDERS: PCP Nurse Practitioner Family; Referring Provider Surgery; Visit Provider Surgery
DX: E04.2 Nontoxic multinodular goiter (principal); E04.1 Nontoxic single thyroid nodule
CPT/HCPCS: 76536

== ENCOUNTER 2023-12-04 14:30 | Outpatient (RCR) | payer MEDICARE, SELFPAY ==
--- NOTE | 2023-10-24 13:03 | HP.PTEVAL ---
Patient's Visit Information Visit Information Visit Information: CAPRI SIMS is a 68 year old F referred to Physical Therapy by JANEE DIETZ with a diagnosis of B breast reconstruction 08/22. Date of Evaluation: 10/24/23 Physical Therapist: Maurilio Monteiro, DPT, OCS, CSCS Visit Plan Frequency: 2x /Week Duration: 4-6 Weeks Plan: 2x/week for 4-6 as needed, Please teach machine based LE adn UE strength (slow progression on chest and UE lats due to recent surgery) and work to I. sports progression to golf swing. desensitization massage to lateral breast and pec tissue/anterior shoulders and TP to B UT each session. Subjective Subjective: Dr. Baltazar plastic surgeon sent her over after ruptured implant in may from double mastectomy in 2007. [facility] sent for US and MRI that it ruptured. had surgery 08/23 for basal skin Ca on lower part of breast and to fix the rupture. Symptoms are extreme pain R lateral . Had injection llast week of steroid in both sides very painful since surgery and R breast dropped(had a mesh put in). Bottom line is this surgery did not go as well as the first and frustrating for patient B after this recent surgery. doctor then sent for PT. precuations are 5# lifting and avoided OH lifting and reaching out for a month.No precautions currently. Pain is laterally B breast and into lat and upper arm. Worse with lying on side. Sleeping on side now with arm above head. Sleeping well but might waker up with pain on the side she is on. No pain at rest. That is pretty typical. Tender to the touch,. Cannot wear a bra due to tenderness. Shirts don't bother her. Has intermittent pins and needles possibly just from surgery. Retired. basic ADLs are getting done , able to pull weeds, clean gutters, and they do not really increase pain. Has been sitting around since May. Hobbies: driving BMW convertible and is not a problem. Lifting weights is not confident. Bowers sweeper is heavy and carried it down stairs without issue. Picked up air compressor and carried it without issue(maybe a little sore last night. Wants to strengthen legs due to period of inactivity Pain B lateral breasts: Pain Intensity (Out of 10): 0 Pain Intensity Range: 0 and 4 Objective Objective: Posture is slight Fw head and protracted scap. Slight Fw head but unremarkable otherwise. Tender to palpation B pec minor, major and up to clavicle as well as lateral breasst tissue and feels scar tissue. Some tender trigger points in UT. UE AROM WFL and without pain today at shoulder, scapula, elbows and wrists, cervical aROM WFL no pain. reflexes 2/3 bi and tri sensation UE WNL to gross light touch. strength 4- shoulders and elbows and wrists, pt hesitant to contract too hard but able to without pain. Steps reciprocal without rail. Balance/Special Test Scores Quick DASH Score: 25.0000 Goals Goal 1:: Pt feel 100% back to normal activity without pain including swining golf club Goal Time Frame: 4-6 Weeks Goal 2:: i appropriate gym based LE and UE strength program for membership Goal Time Frame: 4-6 Weeks Goal 3:: Tenderness in breasts diminished enough to wear bra, Goal Time Frame: 4-6 Weeks Goal 4:: qucik dash 15 or better Goal Time Frame: 4-6 Weeks Rehabilitation Potential Physical Therapy Diagnosis: limited strength adn confidenc ein tiussue and tenderness effecting QOL Rehabilitation Potential: Good Anticipated Interventions Patient/Client Instruction: Educate patient on: Condition and Plan of Care For the Purpose of:: To decrease pain, To improve nutrient delivery to tissue and To increase tolerance to activity/condition/position Therapeutic Exercise to Include: Strength training For the Purpose of:: To decrease pain, To improve nutrient delivery to tissue and To increase tolerance to activity/condition/position Manual Therapy Techniques to Include: Trigger point massage Comment: desensitazation massage For the Purpose of:: To improve nutrient delivery to tissue and To improve muscle performance and motor function Text: Thank you for the opportunity to evaluate your patient. For Medicare and Medicare HMO plans, please review the plan of care and approve it. It will need to be FAXED BACK to us at [phone] for Medicare purposes. For Medicare only, by signing this I certify the plan of care. Please let me know if there are questions or concerns regarding this plan of care. Physician Signature: Date:
--- NOTE | 2024-01-18 10:28 | HP.PTDCNRP_ITS ---
Patient Information Patient Information: CAPRI SIMS was seen in my office for initial evaluation on 10/24/23. The following Plan of Care was established for this patient: POC Established Initial Frequency: 2x /Week Initial Duration: 4-6 Weeks Anticipated Interventions Patient/Client Instruction: Educate patient on: Condition and Plan of Care For the Purpose of:: To decrease pain, To improve nutrient delivery to tissue and To increase tolerance to activity/condition/position Therapeutic Exercise to Include: Strength training For the Purpose of:: To decrease pain, To improve nutrient delivery to tissue and To increase tolerance to activity/condition/position Manual Therapy Techniques to Include: Trigger point massage Comment: desensitazation massage For the Purpose of:: To improve nutrient delivery to tissue and To improve musc le performance and motor function Last Seen Last Seen: This patient was last seen in our office 12/04/23. Pertinent comments regarding their Physical therapy will appear below: Pt seen for 8 visits of POC but did not schedule or return for any further. It has been over 6 weeks and I will discontinue from my care. At this point I will be discontinuing this patient from physical therapy. I would be happy to see this patient again in the future if found appropriate by the physician. Thank you! Maurilio Monteiro, DPT, OCS, CSCS Balance/Gait/Functional tests Balance/Special Test Scores Quick DASH Score: 25.0000
== END 2023-12-04 19:00 | disposition home or self-care (01) ==
LOC: PT 14:30
PROVIDERS: PCP Nurse Practitioner Family
DX: T85.43XD Leakage of breast prosthesis and implant, subsequent encounter (principal)
CPT/HCPCS: 97110; 97140; 97161

== ENCOUNTER 2024-05-21 20:20 | Emergency (ER) | payer MEDICARE, SELFPAY ==
[2024-05-21 20:42] VITALS: BP 106/69; PULSE 81; RESP 18; TEMP 36.2; O2SAT 95
--- NOTE | 2024-05-21 20:48 | ED.RN ---
Pt is visibly intoxicated in triage and per ems admittedly drank heavily to take away the pain. Pt is erratic and parking her wheelchair in the middle of the hallway. Pt moved several times out of the hallway to be out of the way. Pt states she is not going to wait to be seen. She states she'd rather just . Pt heard calling for a ride.
== END 2024-05-21 20:45 | disposition left against medical advice (07) ==
LOC: ED 21:14
PROVIDERS: PCP Nurse Practitioner Family
DX: Z00.00 Encounter for general adult medical examination without abnormal findings (principal)
CPT/HCPCS: 99281